=== PATIENT | female | born 1975 | race Caucasian/White ===

== ENCOUNTER 2022-02-17 16:36 | Outpatient (CLI) | payer MEDICAID | END 2022-02-17 16:37 | disposition critical access hospital (66) | LOC: EMS 16:36 | DX: R41.0 Disorientation, unspecified (principal); R50.9 Fever, unspecified; R11.2 Nausea with vomiting, unspecified; R09.02 Hypoxemia | CPT/HCPCS: A0425; A0427; A0999 ==

== ENCOUNTER 2022-02-17 16:45 | Inpatient (IN) | payer MEDICAID, OTHER ==
[2022-02-17] MEDS ORDERED: ONDANSETRON 4 MG/2 ML VIAL IVP STA (17:10)
[2022-02-17] MEDS ORDERED: ACETAMINOPHEN 500 MG TABLET PO STA (17:10)
--- NOTE | 2022-02-17 17:12 | ED Physician Documentation ---
History of Present Illness - Stated complaint Stated Complaint: LETHARGIC/VOMITING - Chief complaint Chief Complaint: Neuro - History obtained from History obtained from: Patient - Additonal information Additional information: 47-year-old woman with type 2 diabetes on insulin, carotid stenosis and CHF with EF of 43% presents with an illness. History is difficult because she is confused. She states she originally got sick 2 weeks ago and then got better but then got worse again yesterday with confusion, vomiting, fever and feeling hot, headache. I asked her if she had any sick contacts and she states her aunt was sick but cannot give me any details. Review of Systems Unable to obtain: Confused Constitutional: reports: Fever, Chills GI: reports: Nausea, Vomiting. denies: Abdominal Pain, Diarrhea PD PAST MEDICAL HISTORY - Past Medical History Cardiovascular: Hypertension Respiratory: None Endocrine/Autoimmune: Type 2 diabetes HEENT: Other Psych: None Musculoskeletal: None - Past Surgical History Past Surgical History: Yes - Present Medications Home Medications: Ambulatory Orders Medication Instructions Recorded Confirmed No Blood Product! 09/26/13 03/06/15 Amlodipine Besylate 10 mg PO DAILY 02/25/14 03/06/15 Atorvastatin [Lipitor] 10 mg PO DAILY 02/25/14 03/06/15 Insulin Glargine [Lantus Solostar] 50 unit SQ DAILY 02/25/14 03/06/15 Insulin Lispro [Humalog] 10 unit SQ AC 02/25/14 03/06/15 Metformin HCl 1,000 mg PO BID 02/25/14 03/06/15 Sertraline HCl [Zoloft] 50 mg PO DAILY 02/25/14 03/06/15 lisinopriL [Lisinopril] 40 mg PO DAILY 02/25/14 03/06/15 Penicillin Vk 500 mg PO Q8H 10 Days tablet 03/06/15 Saccharomyces Boulardii [Florastor] 500 mg PO BIDWM #40 capsule 03/06/15 - Allergies Allergies/Adverse Reactions: Allergies Allergy/AdvReac Type Severity Reaction Status Date / Time No Known Drug Allergies Allergy Verified 12/16/12 03:32 - Social History Does the pt smoke?: No Smoking Status: Never smoker Does the pt drink ETOH?: No Does the pt have substance abuse?: No - Immunizations Immunizations are current?: No Immunizations: TDAP >10years/unknown - POLST Patient has POLST: No PD ED PE NORMAL - Vitals Vital signs reviewed: Yes (Febrile, tachycardic, tachypneic, hypoxic) - General General: Other (She is slow to answer questions and seems to be struggling with word finding. She is alert and oriented x2.) - Neck Neck: Supple, no meningeal sign, No bony TTP - Cardiac Cardiac: RRR, No murmur - Respiratory Respiratory: No respiratory distress, Other (Rhonchi especially at the left base) - Abdomen Abdomen: Non tender - Back Back: No CVA TTP, No spinal TTP - Derm Derm: Normal color, Warm and dry, Other (Focal petechia on the right hand which she says is from the blood pressure cuff.) - Neuro Neuro: No motor deficit, No sensory deficit Eye Opening: Spontaneous Motor: Obeys Commands Verbal: Confused GCS Score: 14 Results - Vitals Vitals: Vital Signs - 24 hr 02/17/22 02/17/22 02/17/22 16:51 16:58 17:28 Temperature 39.6 C H Heart Rate 113 H 112 H 104 H Respiratory 32 H 26 H 17 Rate Blood Pressure 165/104 H 165/104 H 118/80 O2 Saturation 87 L 97 98 If not protocol 2 2 : Oxygen Flow, liters/minute 02/17/22 02/17/22 02/17/22 18:00 18:30 19:31 Temperature 36.9 C Heart Rate 95 84 77 Respiratory 20 12 18 Rate Blood Pressure 118/80 137/48 H 130/59 L O2 Saturation 98 97 95 If not protocol 2 2 : Oxygen Flow, liters/minute 02/17/22 19:52 Temperature Heart Rate 75 Respiratory 17 Rate Blood Pressure 130/59 L O2 Saturation 96 If not protocol 2 : Oxygen Flow, liters/minute Oxygen O2 Source Nasal cannula - EKG (time done) 1651 Rate: Rate (enter#) (114) Rhythm: Sinus tachycardia [place]: Normal Intervals: Normal ND QRS: LVH Ischemia: No: ST elevation c/w ischemia, ST depression - Labs Labs: Laboratory Tests 02/17/22 02/17/22 02/17/22 17:12 17:12 17:16 WBC RBC Hgb Hct MCV MCH MCHC RDW Plt Count MPV Neut # (Auto) Lymph # (Auto) [place] # (Auto) Eos # (Auto) Baso # (Auto) Absolute Nucleated RBC Nucleated RBC % VBG pH VBG pCO2 VBG pO2 VBG HCO3 VBG Total CO2 VBG O2 Saturation VBG Base Excess Sodium Potassium Chloride Carbon Dioxide Anion Gap BUN Creatinine Estimated GFR (MDRD) Glucose Lactic Acid Calcium Total Bilirubin AST ALT Alkaline Phosphatase Total Protein Albumin Globulin Albumin/Globulin Ratio Urine Color YELLOW Urine Clarity HAZY Urine pH 6.0 Ur Specific [place] 1.010 Urine Protein TRACE Urine Glucose (UA) >=1000 H Urine Ketones >=80 H Urine Occult Blood MODERATE H Urine Nitrite NEGATIVE Urine Bilirubin NEGATIVE Urine Urobilinogen 0.2 (NORMAL) Ur Leukocyte Esterase NEGATIVE Urine RBC 11-25 H Urine WBC 4-5 Ur Squamous Epith Cells MOD Squamous H Urine Bacteria Few Urine Yeast PRESENT Urine Culture Comments NOT INDICATED Urine HCG, Qual NEGATIVE Nasal Adenovirus (PCR) NOT DETECTED Nasal B. parapertussis DNA (PCR) NOT DETECTED Nasal Coronavir 229E PCR NOT DETECTED Nasal Coronavir HKU1 PCR NOT DETECTED Nasal Coronavir NL63 PCR NOT DETECTED Nasal Coronavir OC43 PCR NOT DETECTED Nasal Enterovir/Rhinovir PCR NOT DETECTED Nasal Influenza B PCR NOT DETECTED Nasal Influenza A PCR NOT DETECTED Nasal Parainfluen 1 PCR NOT DETECTED Nasal Parainfluen 2 PCR NOT DETECTED Nasal Parainfluen 3 PCR NOT DETECTED Nasal Parainfluen 4 PCR NOT DETECTED Nasal RSV (PCR) NOT DETECTED Nasal B.pertussis DNA PCR NOT DETECTED Nasal C.pneumoniae (PCR) NOT DETECTED Prosper Human Metapneumo PCR NOT DETECTED Nasal M.pneumoniae (PCR) NOT DETECTED Nasal SARS-CoV-2 (PCR) NOT DETECTED Serum Ketones 02/17/22 02/17/22 02/17/22 17:24 17:24 17:25 WBC 15.6 H RBC 5.39 Hgb 13.6 Hct 42.4 MCV 78.7 L MCH 25.2 L MCHC 32.1 RDW 13.1 Plt Count 246 MPV 10.3 Neut # (Auto) 13.4 H Lymph # (Auto) 0.8 L [place] # (Auto) 1.3 H Eos # (Auto) 0.0 Baso # (Auto) 0.0 Absolute Nucleated RBC 0.00 Nucleated RBC % 0.0 VBG pH VBG pCO2 VBG pO2 VBG HCO3 VBG Total CO2 VBG O2 Saturation VBG Base Excess Sodium 124 L Potassium 3.9 Chloride 89 L Carbon Dioxide 24 Anion Gap 11.0 BUN 18 Creatinine 1.0 Estimated GFR (MDRD) 60 L Glucose 442 H Lactic Acid 1.5 Calcium 9.8 Total Bilirubin 2.1 H AST 17 ALT 19 Alkaline Phosphatase 94 Total Protein 7.8 Albumin 3.6 Globulin 4.2 Albumin/Globulin Ratio 0.9 L Urine Color Urine Clarity Urine pH Ur Specific [place] Urine Protein Urine Glucose (UA) Urine Ketones Urine Occult Blood Urine Nitrite Urine Bilirubin Urine Urobilinogen Ur Leukocyte Esterase Urine RBC Urine WBC Ur Squamous Epith Cells Urine Bacteria Urine Yeast Urine Culture Comments Urine HCG, Qual Nasal Adenovirus (PCR) Nasal B. parapertussis DNA (PCR) Nasal Coronavir 229E PCR Nasal Coronavir HKU1 PCR Nasal Coronavir NL63 PCR Nasal Coronavir OC43 PCR Nasal Enterovir/Rhinovir PCR Nasal Influenza B PCR Nasal Influenza A PCR Nasal Parainfluen 1 PCR Nasal Parainfluen 2 PCR Nasal Parainfluen 3 PCR Nasal Parainfluen 4 PCR Nasal RSV (PCR) Nasal B.pertussis DNA PCR Nasal C.pneumoniae (PCR) Prosper Human Metapneumo PCR Nasal M.pneumoniae (PCR) Nasal SARS-CoV-2 (PCR) Serum Ketones SMALL H 02/17/22 17:25 WBC RBC Hgb Hct MCV MCH MCHC RDW Plt Count MPV Neut # (Auto) Lymph # (Auto) [place] # (Auto) Eos # (Auto) Baso # (Auto) Absolute Nucleated RBC Nucleated RBC % VBG pH 7.420 H VBG pCO2 43.0 VBG pO2 31.8 VBG HCO3 27.3 VBG Total CO2 28.6 VBG O2 Saturation 69.8 VBG Base Excess 2.4 H Sodium Potassium Chloride Carbon Dioxide Anion Gap BUN Creatinine Estimated GFR (MDRD) Glucose Lactic Acid Calcium Total Bilirubin AST ALT Alkaline Phosphatase Total Protein Albumin Globulin Albumin/Globulin Ratio Urine Color Urine Clarity Urine pH Ur Specific [place] Urine Protein Urine Glucose (UA) Urine Ketones Urine Occult Blood Urine Nitrite Urine Bilirubin Urine Urobilinogen Ur Leukocyte Esterase Urine RBC Urine WBC Ur Squamous Epith Cells Urine Bacteria Urine Yeast Urine Culture Comments Urine HCG, Qual Nasal Adenovirus (PCR) Nasal B. parapertussis DNA (PCR) Nasal Coronavir 229E PCR Nasal Coronavir HKU1 PCR Nasal Coronavir NL63 PCR Nasal Coronavir OC43 PCR Nasal Enterovir/Rhinovir PCR Nasal Influenza B PCR Nasal Influenza A PCR Nasal Parainfluen 1 PCR Nasal Parainfluen 2 PCR Nasal Parainfluen 3 PCR Nasal Parainfluen 4 PCR Nasal RSV (PCR) Nasal B.pertussis DNA PCR Nasal C.pneumoniae (PCR) Prosper Human Metapneumo PCR Nasal M.pneumoniae (PCR) Nasal SARS-CoV-2 (PCR) Serum Ketones - Rads (name of study) Chest x-ray and CT of the head without acute disease. Prior subarachnoid clip. Radiology: Final report received, EMP read indepedently PD Medical Decision Making - ED course ED course: 47-year-old woman with history of diabetes, low ejection fraction and vascular disease presents with lethargy, delirium, high fever and hypoxemia. She was administered IV fluids, insulin and labs were checked. These are notable for leukocytosis at 15, blood sugar 142 with hyponatremia that certainly could be pseudohyponatremia, no clearly infected urine, respiratory PCR negative and small ketones. CT of the head was without acute change and chest x-ray as well. Given her hypoxemia had a high pretest probability for pneumonia and this was followed by CT angiogram which was negative for same and also PE. At that point her vital signs look much better. She was taken off the oxygen and had pulse oximetry about 93% on room air. Her blood sugar remained very high though, in the mid 400s despite IV insulin and 2 L of fluid. Given her presentation vital signs I think it reasonable to place her in observation for sepsis rule out and management of her severe hyperglycemia. Call was placed to telehealth service and I Turned her care over to Dr. Flynn at 10 PM shift change pending telehealth return call. Departure - Departure Disposition: ED Place in Observation Clinical Impression: Hypoxemia, Delirium, Hyperglycemia Fever Qualifiers: Fever type: due to other condition Qualified Code(s): R50.81 - Fever presenting with conditions classified elsewhere Condition: Stable
[2022-02-17 17:32] LABS: BASOPHILS % (AUTO) 0.2 %; HCT - HEMATOCRIT 42.4 % (37.0-47.0); HGB - HEMOGLOBIN 13.6 g/dL (12.0-16.0); LYMPHOCYTES # (AUTO) 0.8 10^3/uL (1.5-3.5); LYMPHOCYTES % (AUTO) 4.9 %; MEAN CORPUSCULAR HEMOGLOBIN 25.2 pg (27.0-31.0); MEAN CORPUSCULAR HGB CONC 32.1 g/dL (32.0-36.0); MEAN CORPUSCULAR VOLUME 78.7 fL (81.0-99.0); MEAN PLATELET VOLUME 10.3 fL (7.9-10.8); MONOCYTES # (AUTO) 1.3 10^3/uL (0.0-1.0); NEUTROPHILS # (AUTO) 13.4 10^3/uL (1.5-6.6); NEUTROPHILS % (AUTO) 86.3 %; PLT - PLATELET COUNT 246 10^3/uL (130-450); RED BLOOD COUNT 5.39 10^6/uL (4.20-5.40); RED CELL DISTRIBUTION WIDTH 13.1 % (12.0-15.0); WHITE BLOOD COUNT 15.6 x10^3/uL (4.8-10.8)
[2022-02-17 17:34] LABS: VBG BASE EXCESS 2.4 mmol/L (-2 - +2); VBG HCO3 27.3 mmol/L (23-28); VBG OXYGEN SATURATION 69.8 % (60-80); VBG PH 7.42 (7.31-7.41); VBG PO2 31.8 mmHg (25-47); VBG TOTAL CO2 28.6 mmol/L (24-29)
[2022-02-17 17:36] LABS: KETONES, SERUM (ACETEST) SMALL (NEGATIVE)
[2022-02-17 17:39] LABS: BILIRUBIN,URINE NEGATIVE (NEGATIVE); GLUCOSE, URINE (UA) >=1000 mg/dL (NEGATIVE); KETONES,URINE (UA) >=80 mg/dL (NEGATIVE); LEUKOCYTE ESTERASE, URINE NEGATIVE (NEGATIVE); NITRITE,URINE NEGATIVE (NEGATIVE); OCCULT BLOOD,URINE MODERATE (NEGATIVE); PROTEIN,URINE TRACE mg/dL (NEGATIVE); UROBILINOGEN,URINE 0.2 (NORMAL) E.U./dL (NORMAL)
[2022-02-17 17:41] LABS: HCG UR QUAL NEGATIVE
[2022-02-17 17:43] LABS: ALBUMIN 3.6 g/dL (3.2-5.5); ALBUMIN/GLOBULIN RATIO 0.9 (1.0-2.2); ALKALINE PHOSPHATASE 94 IU/L (42-121); ALT ALANINE AMINOTRANSFERASE 19 IU/L (10-60); AST ASPARTATE AMINOTRANSFERASE 17 IU/L (10-42); BILIRUBIN,TOTAL 2.1 mg/dL (0.2-1.0); BUN - BLOOD UREA NITROGEN 18 mg/dL (6-20); CALCIUM 9.8 mg/dL (8.5-10.3); CARBON DIOXIDE - CO2 24 mmol/L (21-32); CHLORIDE 89 mmol/L (101-111); GFR - MDRD 60 (>89); GLUCOSE 442 mg/dL (70-100); POTASSIUM 3.9 mmol/L (3.5-5.0); SODIUM 124 mmol/L (135-145); TOTAL PROTEIN 7.8 g/dL (6.7-8.2)
[2022-02-17 17:50] LABS: CLARITY,URINE HAZY (CLEAR)
[2022-02-17 17:51] LABS: BACTERIA,URINE Few /HPF (None Seen); SQUAMOUS EPITHELIAL CELL,UR MOD Squamous (<= Few)
[2022-02-17] MEDS ORDERED: SODIUM CHLORIDE 0.9% 1,000 ML IV STA ×2 (17:51→20:54)
[2022-02-17 17:52] LABS: YEAST,URINE PRESENT
--- NOTE | 2022-02-17 18:09 | CT Report ---
PROCEDURE: HEAD WO INDICATIONS: headache TECHNIQUE: Noncontrast 4.5 mm thick angled axial sections acquired from the foramen magnum to the vertex. For r adiation dose reduction, the following was used: automated exposure control, adjustment of mA and/or kV according to patient size. COMPARISON: 09/26/2013 FINDINGS: Image quality: Motion artifact is noted. There is artifact associated with the metallic hardware. CSF spaces: Basal cisterns are patent. No extra-axial fluid collections. Ventricles are normal in size and shape. 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 No midline shift. No intracranial masses or hemorrhage. [place]-white matter interface is normal. Skull and face: Calvarium and visualized facial bones are intact, without suspicious lesions. Hyper ostosis frontalis is incidentally noted, which is not frankly abnormal for a female patient of this a ge. Sinuses: Visualized sinuses and mastoids are clear. IMPRESSION: No recurrent subarachnoid hemorrhage is seen. A cause of headache cannot be seen on these images. 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 Reviewed by: Gal Nguyen MD on 02/17/2022 5:08 PM [place] Approved by: Gal Nguyen MD on 02/17/2022 5:08 PM [place] Station ID: [id number]
[2022-02-17] MEDS ORDERED: INSULIN REGULAR HUMAN 100 UNIT/1 ML 10 ML MDV IVP STA ×2 (18:27→21:36)
--- NOTE | 2022-02-17 18:36 | XRAY Report ---
PROCEDURE: Chest 1 View X-Ray INDICATIONS: cough TECHNIQUE: One view of the chest was acquired. COMPARISON: Chest radiographs 12/16/2012. FINDINGS: Surgical changes and devices: None. Lungs and pleura: No pleural effusions or pneumothorax. Lungs are clear. Mediastinum: Cardiac silhouette is at the upper limits of normal in size. Bones and chest wall: No suspicious bony lesions. Overlying soft tissues appear unremarkable. IMPRESSION: No acute cardiopulmonary abnormality. Reviewed by: Isaiah Mejía MD on 02/17/2022 6:35 PM PST Approved by: Isaiah Mejía MD on 02/17/2022 6:35 PM PST Station ID: [id number]
[2022-02-17 18:46] LABS: B. PARAPERTUSSIS- RESP PCR PAN NOT DETECTED; B. PERTUSSIS- RESP PCR PANEL NOT DETECTED; C. PNEUMONIAE- RESP PCR PANEL NOT DETECTED; CORONAVIRUS 229E-RESP PCR NOT DETECTED; CORONAVIRUS HKU1-RESP PCR NOT DETECTED; CORONAVIRUS NL63-RESP PCR NOT DETECTED; CORONAVIRUS OC43-RESP PCR NOT DETECTED; HUMAN METAPNEUMOVIRUS NOT DETECTED; INFLUENZA A- RESP PCR PANEL NOT DETECTED; INFLUENZA B - RESP PCR PANEL NOT DETECTED; M. PNEUMONIAE- RESP PCR PANEL NOT DETECTED; PARAINFLUENZA VIRUS 1 NOT DETECTED; PARAINFLUENZA VIRUS 2 NOT DETECTED; PARAINFLUENZA VIRUS 3 NOT DETECTED; PARAINFLUENZA VIRUS 4 NOT DETECTED; RHINOVIRUS/ENTEROVIRUS NOT DETECTED; RSV- RESP PCR PANEL NOT DETECTED; SARS-CoV-2 -RESP PCR PANEL NOT DETECTED
[2022-02-17] MEDS ORDERED: iohexoL-300 100 ML VIAL ONE (18:52)
--- NOTE | 2022-02-17 20:35 | CT Report ---
PROCEDURE: ANGIO CHEST W/WO INDICATIONS: fever, tachy, suspect occult pna CONTRAST: 80mL Omni 300 TECHNIQUE: After the administration of intravenous contrast, 2 mm axial images were acquired from the pulmonary apices to the posterior costophrenic angles during the arterial phase. In addition, 1 mm lung kernel and 5 mm soft tissue kernel reconstructions were performed. 3-dimensional coronal oblique maximum int ensity projection (MIP) reformats, 8 mm axial MIP, and 5 mm coronal and sagittal MPR reformats were t hen performed through the thorax. For radiation dose reduction, the following was used: automated exp osure control, adjustment of mA and/or kV according to patient size. COMPARISON: Chest radiograph same day FINDINGS: Pulmonary arteries: Pulmonary arteries are normal in size, and demonstrate no intraluminal filling d efects to suggest central pulmonary embolism. Lungs and pleura: No consolidation or substantial groundglass opacity. No pleural effusions or pneum othorax. Mediastinum: No pericardial effusion. No mediastinal or hilar adenopathy. Thoracic aorta is normal in caliber and enhancement. 3.5 cm nodule left lobe of the thyroid gland Bones and chest wall: Multilevel degenerative change of the visualized spine. Abdomen: negative IMPRESSION: 1. No pulmonary embolism demonstrated. 2. No consolidation demonstrated. 3. Approximately 3.5 cm nodule(s) in the left lobe of the thyroid gland. Thyroid ultrasound is recomm ended for further evaluation per ACR guidelines. Reviewed by: Isaiah Mejía MD on 02/17/2022 8:34 PM PST Approved by: Isaiah Mejía MD on 02/17/2022 8:34 PM PST Station ID: [id number]
[2022-02-17] MEDS ORDERED: cefTRIAXone 1 GM in SODIUM CHLORIDE 0.9% MINIBAG 100 ML IV STA (20:54)
[2022-02-17] MEDS ORDERED: iohexoL-300 100 ML VIAL IVP ONE (21:10)
[2022-02-17] MEDS ORDERED: cefTRIAXone 1 GM VIAL ONE (21:35)
--- NOTE | 2022-02-17 22:16 | HISTORY & PHYSICAL EXAMINATION ---
Chief Complaint - Chief Complaint Chief Complaint: Confusion History of Present Illness - Admitted From Admitted From:: ER - History Obtained From Exam Limitations: Video not working well. - History of Present Illness HPI Comment/Other: History difficult to obtain from pt d/t pt's confusion. History obtained from staff, chart. 47 yo F with PMH of DM type 2 on Insulin, Carotid Stenosis, HTN, HFrEF with EF 43% with c/o 2 week h/o URI symptoms and 1 day h/o AMS, N/V. 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 Then, Pt began to feel ill on Jan with Cough, chest congestion, CP with cough, Subjective F/C, weakness, myalgias improved with Ibuprofen. No increased SOB. Relatives got sick after her. She was not eating well. She was using her Insulin. Then, yesterday, she began to have N/V with multiple emeses, non-bloody, No abdo pain, No dysuria, no BM change. In the ER, SpO2 80s on RA initially, now 90s. T 39.6C. Confusion improved with IVF. WBC 15.6, CXR: NAD, BC pending Pt was given Regular Insulin 10 U, Rocephin in the ER. History - Past Medical History Cardiovascular: reports: Hypertension Respiratory: reports: None Endocrine/Autoimmune: reports: Type 2 diabetes HEENT: reports: Other Psych: reports: None Musculoskeletal: reports: None - POLST Patient has POLST: No Meds/Allgy - Home Medications Home Medications: Ambulatory Orders Medication Instructions Recorded Confirmed No Blood Product! 09/26/13 03/06/15 Amlodipine Besylate 10 mg PO DAILY 02/25/14 03/06/15 Atorvastatin [Lipitor] 10 mg PO DAILY 02/25/14 03/06/15 Insulin Glargine [Lantus Solostar] 50 unit SQ DAILY 02/25/14 03/06/15 Insulin Lispro [Humalog] 10 unit SQ AC 02/25/14 03/06/15 Metformin HCl 1,000 mg PO BID 02/25/14 03/06/15 Sertraline HCl [Zoloft] 50 mg PO DAILY 02/25/14 03/06/15 lisinopriL [Lisinopril] 40 mg PO DAILY 02/25/14 03/06/15 Penicillin Vk 500 mg PO Q8H 10 Days tablet 03/06/15 Saccharomyces Boulardii [Florastor] 500 mg PO BIDWM #40 capsule 03/06/15 - Allergies Allergies/Adverse Reactions: Allergies Allergy/AdvReac Type Severity Reaction Status Date / Time No Known Drug Allergies Allergy Verified 12/16/12 03:32 Review of Systems - All Other Systems All Other Systems: reports: Reviewed and negative Exam - Vital Signs Reviewed Vital Signs: Yes Vital Signs: Vital Signs x48h Temp Pulse Resp BP Pulse Ox O2 Flow Rate 02/17/22 19:52 75 17 130/59 L 96 2 02/17/22 19:31 36.9 C 77 18 130/59 L 95 02/17/22 18:30 84 12 137/48 H 97 2 02/17/22 18:00 95 20 118/80 98 2 02/17/22 17:28 104 H 17 118/80 98 2 02/17/22 16:58 112 H 26 H 165/104 H 97 2 02/17/22 16:51 39.6 C H 113 H 32 H 165/104 H 87 L - Physical Exam General Appearance: positive: No acute distress, Alert Eyes Bilateral: positive: Normal inspection, PERRL, EOMI, No scleral icterus ENT: positive: Dry mucous membranes Respiratory: positive: No respiratory distress, Breath sounds nml Cardiovascular: positive: Regular rate & rhythm, No murmur Abdomen: positive: Non-tender Skin: positive: Dry Extremities: positive: Non-tender, Full ROM Neurologic/Psychiatric: positive: Oriented x3, CN's nml (2-12), Motor nml, Sensation nml, Mood/affect nml Conclusion/Plan - Problem List (1) Fever Conclusion/Plan: AMS -CT Head: NAD -improving with IVF -most likely Metabolic Encephalopathy -monitor URI Fever -Viral swabs neg, WBC 15.3, CXR: NAD -supportive care -pt given Rocephin in the ER; will hold on A/Bs for now. N/V Decreased PO intake Hyponatremia/Pseudohyponatremia d/t Hyperglycemia -improved with anti-emetics -continue IVF, anti-emetics Hyperglycemia DM type 2 on Insulin -most likely d/t recent URI -continue accuchecks, SS Insulin, Hypoglycemic protocol -continue home medications: Lantus -hold home medications: Metformin Carotid Stenosis HTN HFrEF with EF 43% -cautious with IVF -continue home medications: Lisinopril, Amlodipine, statin Anxiety -continue home medications: Zoloft Qualifiers: Fever type: due to other condition Qualified Code(s): R50.81 - Fever presenting with conditions classified elsewhere - Lab Results Fish Bones: 02/17/22 17:24 02/17/22 17:25
[2022-02-17] MEDS ORDERED: ONDANSETRON ODT 4 MG TABLET TL PRN (23:39)
[2022-02-17] MEDS ORDERED: ACETAMINOPHEN 325 MG TABLET PO PRN (23:39)
[2022-02-17] MEDS ORDERED: SODIUM CHLORIDE 0.9% 1,000 ML IV SCH (23:45)
[2022-02-18] MEDS: SODIUM CHLORIDE FLUSH 0.9% 10 ML SYRINGE IVP SCH ×3 (02:25→17:42)
[2022-02-18] MEDS: HEPARIN 5,000 UNIT/ML VIAL SUBQ SCH ×2 (02:25→09:07)
[2022-02-18] MEDS ORDERED: SODIUM CHLORIDE 0.9% 1,000 ML IV SCH (03:15)
[2022-02-18] MEDS ORDERED: INSULIN LISPRO 300 UNIT/3 ML PEN SUBQ SCH (08:00)
[2022-02-18 08:44] LABS: BASOPHILS # (AUTO) 0.1 10^3/uL (0.0-0.1); BASOPHILS % (AUTO) 0.3 %; EOSINOPHILS % (AUTO) 0.1 %; HCT - HEMATOCRIT 37.8 % (37.0-47.0); HGB - HEMOGLOBIN 12.1 g/dL (12.0-16.0); LYMPHOCYTES # (AUTO) 0.5 10^3/uL (1.5-3.5); LYMPHOCYTES % (AUTO) 2.6 %; MEAN CORPUSCULAR HEMOGLOBIN 25.4 pg (27.0-31.0); MEAN CORPUSCULAR VOLUME 79.4 fL (81.0-99.0); MEAN PLATELET VOLUME 10.9 fL (7.9-10.8); MONOCYTES # (AUTO) 0.7 10^3/uL (0.0-1.0); MONOCYTES % (AUTO) 3.5 %; NEUTROPHILS # (AUTO) 17.8 10^3/uL (1.5-6.6); NEUTROPHILS % (AUTO) 93.2 %; PLT - PLATELET COUNT 215 10^3/uL (130-450); RED BLOOD COUNT 4.76 10^6/uL (4.20-5.40); RED CELL DISTRIBUTION WIDTH 13.2 % (12.0-15.0); WHITE BLOOD COUNT 19.1 x10^3/uL (4.8-10.8)
[2022-02-18] MEDS ORDERED: lisinopriL 20 MG TABLET PO SCH ×2 (09:00)
[2022-02-18] MEDS ORDERED: amLODIPine 5 MG TABLET PO SCH ×2 (09:00)
[2022-02-18] MEDS ORDERED: ATORVASTATIN 10 MG TABLET PO SCH (09:00)
[2022-02-18] MEDS ORDERED: INSULIN GLARGINE-YFGN 300 UNIT/3 ML PEN SUBQ SCH (09:00)
[2022-02-18 09:04] LABS: CALCIUM 9.3 mg/dL (8.5-10.3); POTASSIUM 3.5 mmol/L (3.5-5.0)
[2022-02-18] MEDS: SERTRALINE 50 MG TABLET PO SCH (09:07)
[2022-02-18] MEDS: cefTRIAXone 2 GM in SODIUM CHLORIDE 0.9% MINIBAG 100 ML IV SCH (09:13)
[2022-02-18] MEDS ORDERED: SODIUM CHLORIDE FLUSH 0.9% 10 ML SYRINGE IVP PRN (09:18)
--- NOTE | 2022-02-18 09:29 | PROVIDER PROGRESS NOTE ---
Subjective - Subjective Pt reports feeling: Worse (She is vomiting, she is groggy and gives answers slowly, she just spiked a fever) Objective - Vital Signs/Intake & Output Vital Signs: Vital Signs Temp Pulse Resp BP Pulse Ox O2 Flow Rate 02/18/22 07:56 36.8 C 87 20 137/57 H 99 2 Intake & Output: Intake & Output 02/15/22 02/16/22 02/17/22 02/18/22 23:59 23:59 23:59 23:59 Intake Total 1100 1450 Output Total 750 Balance 1100 700 - Objective General Appearance: positive: Severe distress (Groggy, just spiked a fever, is actively vomit), Other (Morbidly obese middle-aged white female) Eyes Bilateral: positive: Normal inspection ENT: positive: Dry mucous membranes, Other (Cheeks are flushed) Neck: positive: Nml inspection (Cannot evaluate JVP due to morbid obesity) Respiratory: positive: No respiratory distress, Breath sounds nml Cardiovascular: positive: Regular rate & rhythm, No murmur, Tachycardia Abdomen: positive: Non-tender, Nml bowel sounds, Other (Obese with a pannus) Skin: positive: Color nml, Diaphoresis Extremities: positive: Non-tender, No pedal edema Neurologic/Psychiatric: positive: Oriented x3, Other (Lethargic) - Lab Results Fish Bones: 02/20/22 05:19 02/20/22 05:19 Other Labs: Lab Results x24hrs 02/18/22 02/18/22 02/18/22 Range/Units 08:38 08:34 08:34 WBC (4.8-10.8) x10^3/uL RBC (4.20-5.40) 10^6/uL Hgb (12.0-16.0) g/dL Hct (37.0-47.0) % MCV (81.0-99.0) fL MCH (27.0-31.0) pg MCHC (32.0-36.0) g/dL RDW (12.0-15.0) % Plt Count (130-450) 10^3/uL MPV (7.9-10.8) fL Neut # (Auto) (1.5-6.6) 10^3/uL Lymph # (Auto) (1.5-3.5) 10^3/uL Chester # (Auto) (0.0-1.0) 10^3/uL Eos # (Auto) (0.0-0.7) 10^3/uL Baso # (Auto) (0.0-0.1) 10^3/uL Absolute Nucleated RBC x10^3/uL Nucleated RBC % /100WBC VBG pH (7.31-7.41) VBG pCO2 (41-51) mmHg VBG pO2 (25-47) mmHg VBG HCO3 (23-28) mmol/L VBG Total CO2 (24-29) mmol/L VBG O2 Saturation (60-80) % VBG Base Excess (-2 - +2) mmol/L Sodium 128 L (135-145) mmol/L Potassium 3.5 (3.5-5.0) mmol/L Chloride 95 L (101-111) mmol/L Carbon Dioxide 24 (21-32) mmol/L Anion Gap 9.0 (6-13) BUN 23 H (6-20) mg/dL Creatinine 1.0 (0.4-1.0) mg/dL Estimated GFR (MDRD) 60 L (>89) Glucose 519 H* (70-100) mg/dL Lactic Acid 1.5 (0.5-2.2) mmol/L Calcium 9.3 (8.5-10.3) mg/dL Total Bilirubin (0.2-1.0) mg/dL AST (10-42) IU/L ALT (10-60) IU/L Alkaline Phosphatase (42-121) IU/L Total Protein (6.7-8.2) g/dL Albumin (3.2-5.5) g/dL Globulin (2.1-4.2) g/dL Albumin/Globulin Ratio (1.0-2.2) Urine Color Urine Clarity (CLEAR) Urine pH (5.0-7.5) PH Ur Specific Orgas (1.002-1.030) Urine Protein (NEGATIVE) mg/dL Urine Glucose (UA) (NEGATIVE) mg/dL Urine Ketones (NEGATIVE) mg/dL Urine Occult Blood (NEGATIVE) Urine Nitrite (NEGATIVE) Urine Bilirubin (NEGATIVE) Urine Urobilinogen (NORMAL) E.U./dL Ur Leukocyte Esterase (NEGATIVE) Urine RBC (0-5) /HPF Urine WBC (0-5) /HPF Ur Squamous Epith Cells (<= Few) Urine Bacteria (None Seen) /HPF Urine Yeast Urine Culture Comments Urine HCG, Qual Nasal Adenovirus (PCR) Nasal B. parapertussis DNA (PCR) Nasal Coronavir 229E PCR Nasal Coronavir HKU1 PCR Nasal Coronavir NL63 PCR Nasal Coronavir OC43 PCR Nasal Enterovir/Rhinovir PCR Nasal Influenza B PCR Nasal Influenza A PCR Nasal Parainfluen 1 PCR Nasal Parainfluen 2 PCR Nasal Parainfluen 3 PCR Nasal Parainfluen 4 PCR Nasal RSV (PCR) Nasal B.pertussis DNA PCR Nasal C.pneumoniae (PCR) Prosper Human Metapneumo PCR Nasal M.pneumoniae (PCR) Nasal SARS-CoV-2 (PCR) Serum Ketones SMALL H (NEGATIVE) 02/18/22 02/17/22 02/17/22 Range/Units 08:34 17:25 17:25 WBC 19.1 H (4.8-10.8) x10^3/uL RBC 4.76 (4.20-5.40) 10^6/uL Hgb 12.1 (12.0-16.0) g/dL Hct 37.8 (37.0-47.0) % MCV 79.4 L (81.0-99.0) fL MCH 25.4 L (27.0-31.0) pg MCHC 32.0 (32.0-36.0) g/dL RDW 13.2 (12.0-15.0) % Plt Count 215 (130-450) 10^3/uL MPV 10.9 H (7.9-10.8) fL Neut # (Auto) 17.8 H (1.5-6.6) 10^3/uL Lymph # (Auto) 0.5 L (1.5-3.5) 10^3/uL Chester # (Auto) 0.7 (0.0-1.0) 10^3/uL Eos # (Auto) 0.0 (0.0-0.7) 10^3/uL Baso # (Auto) 0.1 (0.0-0.1) 10^3/uL Absolute Nucleated RBC 0.00 x10^3/uL Nucleated RBC % 0.0 /100WBC VBG pH 7.420 H (7.31-7.41) VBG pCO2 43.0 (41-51) mmHg VBG pO2 31.8 (25-47) mmHg VBG HCO3 27.3 (23-28) mmol/L VBG Total CO2 28.6 (24-29) mmol/L VBG O2 Saturation 69.8 (60-80) % VBG Base Excess 2.4 H (-2 - +2) mmol/L Sodium 124 L (135-145) mmol/L Potassium 3.9 (3.5-5.0) mmol/L Chloride 89 L (101-111) mmol/L Carbon Dioxide 24 (21-32) mmol/L Anion Gap 11.0 (6-13) BUN 18 (6-20) mg/dL Creatinine 1.0 (0.4-1.0) mg/dL Estimated GFR (MDRD) 60 L (>89) Glucose 442 H (70-100) mg/dL Lactic Acid (0.5-2.2) mmol/L Calcium 9.8 (8.5-10.3) mg/dL Total Bilirubin 2.1 H (0.2-1.0) mg/dL AST 17 (10-42) IU/L ALT 19 (10-60) IU/L Alkaline Phosphatase 94 (42-121) IU/L Total Protein 7.8 (6.7-8.2) g/dL Albumin 3.6 (3.2-5.5) g/dL Globulin 4.2 (2.1-4.2) g/dL Albumin/Globulin Ratio 0.9 L (1.0-2.2) Urine Color Urine Clarity (CLEAR) Urine pH (5.0-7.5) PH Ur Specific Orgas (1.002-1.030) Urine Protein (NEGATIVE) mg/dL Urine Glucose (UA) (NEGATIVE) mg/dL Urine Ketones (NEGATIVE) mg/dL Urine Occult Blood (NEGATIVE) Urine Nitrite (NEGATIVE) Urine Bilirubin (NEGATIVE) Urine Urobilinogen (NORMAL) E.U./dL Ur Leukocyte Esterase (NEGATIVE) Urine RBC (0-5) /HPF Urine WBC (0-5) /HPF Ur Squamous Epith Cells (<= Few) Urine Bacteria (None Seen) /HPF Urine Yeast Urine Culture Comments Urine HCG, Qual Nasal Adenovirus (PCR) Nasal B. parapertussis DNA (PCR) Nasal Coronavir 229E PCR Nasal Coronavir HKU1 PCR Nasal Coronavir NL63 PCR Nasal Coronavir OC43 PCR Nasal Enterovir/Rhinovir PCR Nasal Influenza B PCR Nasal Influenza A PCR Nasal Parainfluen 1 PCR Nasal Parainfluen 2 PCR Nasal Parainfluen 3 PCR Nasal Parainfluen 4 PCR Nasal RSV (PCR) Nasal B.pertussis DNA PCR Nasal C.pneumoniae (PCR) Prosper Human Metapneumo PCR Nasal M.pneumoniae (PCR) Nasal SARS-CoV-2 (PCR) Serum Ketones SMALL H (NEGATIVE) 02/17/22 02/17/22 02/17/22 Range/Units 17:24 17:24 17:16 WBC 15.6 H (4.8-10.8) x10^3/uL RBC 5.39 (4.20-5.40) 10^6/uL Hgb 13.6 (12.0-16.0) g/dL Hct 42.4 (37.0-47.0) % MCV 78.7 L (81.0-99.0) fL MCH 25.2 L (27.0-31.0) pg MCHC 32.1 (32.0-36.0) g/dL RDW 13.1 (12.0-15.0) % Plt Count 246 (130-450) 10^3/uL MPV 10.3 (7.9-10.8) fL Neut # (Auto) 13.4 H (1.5-6.6) 10^3/uL Lymph # (Auto) 0.8 L (1.5-3.5) 10^3/uL Chester # (Auto) 1.3 H (0.0-1.0) 10^3/uL Eos # (Auto) 0.0 (0.0-0.7) 10^3/uL Baso # (Auto) 0.0 (0.0-0.1) 10^3/uL Absolute Nucleated RBC 0.00 x10^3/uL Nucleated RBC % 0.0 /100WBC VBG pH (7.31-7.41) VBG pCO2 (41-51) mmHg VBG pO2 (25-47) mmHg VBG HCO3 (23-28) mmol/L VBG Total CO2 (24-29) mmol/L VBG O2 Saturation (60-80) % VBG Base Excess (-2 - +2) mmol/L Sodium (135-145) mmol/L Potassium (3.5-5.0) mmol/L Chloride (101-111) mmol/L Carbon Dioxide (21-32) mmol/L Anion Gap (6-13) BUN (6-20) mg/dL Creatinine (0.4-1.0) mg/dL Estimated GFR (MDRD) (>89) Glucose (70-100) mg/dL Lactic Acid 1.5 (0.5-2.2) mmol/L Calcium (8.5-10.3) mg/dL Total Bilirubin (0.2-1.0) mg/dL AST (10-42) IU/L ALT (10-60) IU/L Alkaline Phosphatase (42-121) IU/L Total Protein (6.7-8.2) g/dL Albumin (3.2-5.5) g/dL Globulin (2.1-4.2) g/dL Albumin/Globulin Ratio (1.0-2.2) Urine Color Urine Clarity (CLEAR) Urine pH (5.0-7.5) PH Ur Specific Orgas (1.002-1.030) Urine Protein (NEGATIVE) mg/dL Urine Glucose (UA) (NEGATIVE) mg/dL Urine Ketones (NEGATIVE) mg/dL Urine Occult Blood (NEGATIVE) Urine Nitrite (NEGATIVE) Urine Bilirubin (NEGATIVE) Urine Urobilinogen (NORMAL) E.U./dL Ur Leukocyte Esterase (NEGATIVE) Urine RBC (0-5) /HPF Urine WBC (0-5) /HPF Ur Squamous Epith Cells (<= Few) Urine Bacteria (None Seen) /HPF Urine Yeast Urine Culture Comments Urine HCG, Qual Nasal Adenovirus (PCR) NOT DETECTED Nasal B. parapertussis DNA (PCR) NOT DETECTED Nasal Coronavir 229E PCR NOT DETECTED Nasal Coronavir HKU1 PCR NOT DETECTED Nasal Coronavir NL63 PCR NOT DETECTED Nasal Coronavir OC43 PCR NOT DETECTED Nasal Enterovir/Rhinovir PCR NOT DETECTED Nasal Influenza B PCR NOT DETECTED Nasal Influenza A PCR NOT DETECTED Nasal Parainfluen 1 PCR NOT DETECTED Nasal Parainfluen 2 PCR NOT DETECTED Nasal Parainfluen 3 PCR NOT DETECTED Nasal Parainfluen 4 PCR NOT DETECTED Nasal RSV (PCR) NOT DETECTED Nasal B.pertussis DNA PCR NOT DETECTED Nasal C.pneumoniae (PCR) NOT DETECTED Prosper Human Metapneumo PCR NOT DETECTED Nasal M.pneumoniae (PCR) NOT DETECTED Nasal SARS-CoV-2 (PCR) NOT DETECTED Serum Ketones (NEGATIVE) 02/17/22 02/17/22 Range/Units 17:12 17:12 WBC (4.8-10.8) x10^3/uL RBC (4.20-5.40) 10^6/uL Hgb (12.0-16.0) g/dL Hct (37.0-47.0) % MCV (81.0-99.0) fL MCH (27.0-31.0) pg MCHC (32.0-36.0) g/dL RDW (12.0-15.0) % Plt Count (130-450) 10^3/uL MPV (7.9-10.8) fL Neut # (Auto) (1.5-6.6) 10^3/uL Lymph # (Auto) (1.5-3.5) 10^3/uL Chester # (Auto) (0.0-1.0) 10^3/uL Eos # (Auto) (0.0-0.7) 10^3/uL Baso # (Auto) (0.0-0.1) 10^3/uL Absolute Nucleated RBC x10^3/uL Nucleated RBC % /100WBC VBG pH (7.31-7.41) VBG pCO2 (41-51) mmHg VBG pO2 (25-47) mmHg VBG HCO3 (23-28) mmol/L VBG Total CO2 (24-29) mmol/L VBG O2 Saturation (60-80) % VBG Base Excess (-2 - +2) mmol/L Sodium (135-145) mmol/L Potassium (3.5-5.0) mmol/L Chloride (101-111) mmol/L Carbon Dioxide (21-32) mmol/L Anion Gap (6-13) BUN (6-20) mg/dL Creatinine (0.4-1.0) mg/dL Estimated GFR (MDRD) (>89) Glucose (70-100) mg/dL Lactic Acid (0.5-2.2) mmol/L Calcium (8.5-10.3) mg/dL Total Bilirubin (0.2-1.0) mg/dL AST (10-42) IU/L ALT (10-60) IU/L Alkaline Phosphatase (42-121) IU/L Total Protein (6.7-8.2) g/dL Albumin (3.2-5.5) g/dL Globulin (2.1-4.2) g/dL Albumin/Globulin Ratio (1.0-2.2) Urine Color YELLOW Urine Clarity HAZY (CLEAR) Urine pH 6.0 (5.0-7.5) PH Ur Specific Orgas 1.010 (1.002-1.030) Urine Protein TRACE (NEGATIVE) mg/dL Urine Glucose (UA) >=1000 H (NEGATIVE) mg/dL Urine Ketones >=80 H (NEGATIVE) mg/dL Urine Occult Blood MODERATE H (NEGATIVE) Urine Nitrite NEGATIVE (NEGATIVE) Urine Bilirubin NEGATIVE (NEGATIVE) Urine Urobilinogen 0.2 (NORMAL) (NORMAL) E.U./dL Ur Leukocyte Esterase NEGATIVE (NEGATIVE) Urine RBC 11-25 H (0-5) /HPF Urine WBC 4-5 (0-5) /HPF Ur Squamous Epith Cells MOD Squamous H (<= Few) Urine Bacteria Few (None Seen) /HPF Urine Yeast PRESENT Urine Culture Comments NOT INDICATED Urine HCG, Qual NEGATIVE Nasal Adenovirus (PCR) Nasal B. parapertussis DNA (PCR) Nasal Coronavir 229E PCR Nasal Coronavir HKU1 PCR Nasal Coronavir NL63 PCR Nasal Coronavir OC43 PCR Nasal Enterovir/Rhinovir PCR Nasal Influenza B PCR Nasal Influenza A PCR Nasal Parainfluen 1 PCR Nasal Parainfluen 2 PCR Nasal Parainfluen 3 PCR Nasal Parainfluen 4 PCR Nasal RSV (PCR) Nasal B.pertussis DNA PCR Nasal C.pneumoniae (PCR) Prosper Human Metapneumo PCR Nasal M.pneumoniae (PCR) Nasal SARS-CoV-2 (PCR) Serum Ketones (NEGATIVE) - Diagnostic Imaging Diagnostic Imaging Results: positive: Final report reviewed Assessment/Plan - Problem List (1) DKA, type 2 Impression: She has had diabetes for 10 years, unknown how long insulin dependent she is. The patient reports having A1c done about a month ago and it was about 8. Possibly her viral syndrome of cough, fever and nausea vomiting threw her into DKA. Given the bacteremia, possibly the source of the Klebsiella bacteremia threw her into the DKA Plan: Admit to inpatient status Transfer to the ICU and started DKA protocol with insulin drip, frequent glucose and serum ketone monitoring Will aggressively search for an underlying infection, given this fever and bacteremia (2) Bacteremia due to Klebsiella pneumoniae Impression: She is on empiric ceftriaxone that was started for what the telemedicine doctor thought was an FUO. Chest x-ray did not have any infiltrates and she even had a CTA. Urinalysis was not a clean-catch, had many squamous cells therefore this type of bacteria may be from a UTI Plan: Will continue with empiric IV antibiotics, continue ceftriaxone for now Await blood culture results further sensitivities Will redraw blood cultures if she has a fever spike and in a few days to assure her blood cultures have turned negative We will repeat her urinalysis with culture if abnormal. (3) Nausea and vomiting Impression: She had this over the last 2 days along with a cough therefore may be an overall viral picture however the nausea and vomiting is very consistent with having DKA. She was able to tolerate clear liquids this morning but as a fever redeveloped her nausea and vomiting worsened Plan: Will de-escalate from clear liquids down to n.p.o. except ice chips Zofran has already been ordered Will add Compazine as needed to alternate antiemetics Treat the underlying DKA (4) Atypical chest pain Impression: Once she was moved to the ICU and started on DKA protocol, her nausea and vomiting came back. With hydration her cough became wetter. Then in the early afternoon she told her RN about right-sided chest pain radiating to the right lateral rib cage and to the back. Sublingual nitroglycerin was tried, it had minimal effect, the discomfort decreased on its own over an hour. Plan: Because the location of chest pain sounding not anginal and a wetter cough, chest x-ray will be repeated Because she has a history of CAD, troponins are being cycled, to assure no FL. (5) Hyponatremia Impression: This is likely pseudohyponatremia from the severely elevated glucose. Plan: NS at an aggressive fluid replacement rate will be ordered. Follow BMP every 2h (6) Metabolic encephalopathy Impression: This has resolved. She appears fatigued but she answers completely appropriately. The aunt is at her bedside and says she always gets confused when she has a fever or is sick overall Plan: Continue to treat the underlying cause of her fevers and infection (7) Chronic systolic heart failure Impression: The aunt confirms and the ER was aware that the patient has an LVEF of 43%. This was from a recent work-up done several months ago in [place]. We have no echoes here. Plan: Follow I's and O's carefully and watch for desaturation, while she is getting a ggressive IV fluids to treat her DKA. Continue with her other cardiac medications like SANDRA inhibitor and carvedilol (8) CAD (coronary artery disease) Impression: As per history provided to me by the aunt at bedside today. She has a 70% coronary stenosis, but the aunt does not know in which coronary artery, and it was not stented Plan: Continue with her antiplatelet and statin medications (9) PVD (peripheral vascular disease) Impression: Carotid disease is present and it is significant at about 70% on the R. It was not stented for fear of causing downstream embolization. Plan: Continue with her antiplatelet and cholesterol medication (10) History of spontaneous intraventricular hemorrhage due to cerebral aneurysm Impression: This happened 10 years ago and she was treated with coil, it is visible on imaging. The aunt gave me details, at bedside today. After this event it left her with fear of crowds. She has now gotten over that CRITICAL CARE TIME SPENT: 100 min (Evaluating patient, ordering transfer to ICU, ordering DKA protocol, reevaluating patient after moved into ICU, reviewing labs, ordering work-up for bacteremia, updating the aunt at the bedside).
[2022-02-18 09:54] LABS: VBG BASE EXCESS -1.4 mmol/L (-2 - +2); VBG HCO3 23.8 mmol/L (23-28); VBG OXYGEN SATURATION 91.6 % (60-80); VBG PCO2 41.6 mmHg (41-51); VBG PH 7.375 (7.31-7.41); VBG PO2 57.9 mmHg (25-47); VBG TOTAL CO2 25.1 mmol/L (24-29)
[2022-02-18] MEDS: SODIUM CHLORIDE 0.9% 1,000 ML IV SCH ×4 (10:00→20:09)
[2022-02-18 10:10] LABS: BUN - BLOOD UREA NITROGEN 22 mg/dL (6-20); CALCIUM 9.1 mg/dL (8.5-10.3); CARBON DIOXIDE - CO2 24 mmol/L (21-32); CHLORIDE 95 mmol/L (101-111); GFR - MDRD 60 (>89); GLUCOSE 520 mg/dL (70-100); MAGNESIUM 1.5 mg/dL (1.7-2.8); POTASSIUM 3.7 mmol/L (3.5-5.0); SODIUM 126 mmol/L (135-145)
[2022-02-18 10:19] LABS: KETONES, SERUM (ACETEST) SMALL (NEGATIVE)
[2022-02-18] MEDS ORDERED: INSULIN REGULAR HUMAN 300 UNIT/3 ML VIAL IVP ONE (10:27)
[2022-02-18 10:50] LABS: KETONES, SERUM (ACETEST) SMALL (NEGATIVE)
[2022-02-18 10:54] LABS: BUN - BLOOD UREA NITROGEN 21 mg/dL (6-20); CALCIUM 9.2 mg/dL (8.5-10.3); CARBON DIOXIDE - CO2 24 mmol/L (21-32); CHLORIDE 95 mmol/L (101-111); CREATININE 0.9 mg/dL (0.4-1.0); GFR - MDRD 67 (>89); GLUCOSE 497 mg/dL (70-100); MAGNESIUM 1.7 mg/dL (1.7-2.8); POTASSIUM 3.7 mmol/L (3.5-5.0); SODIUM 127 mmol/L (135-145)
[2022-02-18 11:02] LABS: ESTIMATED AVERAGE GLUCOSE 286 mg/dL (70-100); HEMOGLOBIN A1c% 11.6 % (4.27-6.07)
--- NOTE | 2022-02-18 12:02 | XRAY Report ---
PROCEDURE: Chest for Line Placement INDICATIONS: CVL placement TECHNIQUE: One view of the chest was acquired. COMPARISON: CT 02/17/2022 FINDINGS: Surgical changes and devices: Right central venous catheter terminates in the at the cavoatrial junc tion. Lungs and pleura: Low lung volumes. No dense consolidation or pleural effusion. Mediastinum: Heart size is at the upper limit of normal. Bones and chest wall: No suspicious bony lesions. Overlying soft tissues appear unremarkable. IMPRESSION: Low lung volumes without acute radiographic abnormality. Central venous line terminates at the cavoat rial junction. Reviewed by: Pavel Becerra MD on 02/18/2022 12:01 PM PST Approved by: Pavel Becerra MD on 02/18/2022 12:01 PM PST Station ID: [id number]
[2022-02-18] MEDS: INSULIN REGULAR HUMAN 100 UNIT in SODIUM CHLORIDE 0.9% 100ML 99 ML IV SCH ×2 (12:13→16:15)
[2022-02-18] MEDS ORDERED: SODIUM CHLORIDE 0.9% 500 ML IV ONE ×2 (12:45→22:34)
[2022-02-18 12:54] LABS: BILIRUBIN,URINE NEGATIVE (NEGATIVE); GLUCOSE, URINE (UA) >=1000 mg/dL (NEGATIVE); KETONES,URINE (UA) NEGATIVE (NEGATIVE); LEUKOCYTE ESTERASE, URINE TRACE (NEGATIVE); NITRITE,URINE NEGATIVE (NEGATIVE); OCCULT BLOOD,URINE MODERATE (NEGATIVE); PROTEIN,URINE NEGATIVE (NEGATIVE); UROBILINOGEN,URINE 1 (NORMAL) E.U./dL (NORMAL)
[2022-02-18 13:02] LABS: BACTERIA,URINE Few /HPF (None Seen); CLARITY,URINE SL. CLOUDY (CLEAR); SQUAMOUS EPITHELIAL CELL,UR MANY Squamous (<= Few)
[2022-02-18] MEDS: ASPIRIN EC 81 MG TABLET PO SCH (13:24)
[2022-02-18] MEDS: SODIUM CHLORIDE FLUSH 0.9% 10 ML SYRINGE IVP PRN ×4 (13:33→18:38)
--- NOTE | 2022-02-18 13:34 | ANESTHESIA PROCEDURE NOTE ---
Anesth Central Line Template - Central Line Central Line Preparation: Consent Obtained Central line location: Right IJ Central line type: Triple lumen Central line catheter tip site resides: Atrium, right Central line aftercare: Chlorhexidine disc placed, Secured, Placement confirmed, No pneumothorax, No complications, Bundle checklist complete, Pt tolerated well
--- NOTE | 2022-02-18 13:37 | CONSULTATION NOTE ---
Consultation Report: consulted by Hospitalist for CVL placement. Informed consent obtained. 7Fr 3- lumen CVL placed in R IJ with US guidance. Sterile technique maintained. Pt tolerated well. NAC. Placement confirmed with port CXR
[2022-02-18] MEDS: NITROGLYCERIN SL 0.4 MG TABLET SL PRN ×2 (13:40→15:40)
[2022-02-18 14:15] LABS: BUN - BLOOD UREA NITROGEN 19 mg/dL (6-20); CALCIUM 8.9 mg/dL (8.5-10.3); CARBON DIOXIDE - CO2 25 mmol/L (21-32); CHLORIDE 96 mmol/L (101-111); CREATININE 0.8 mg/dL (0.4-1.0); GFR - MDRD 77 (>89); GLUCOSE 410 mg/dL (70-100); MAGNESIUM 1.5 mg/dL (1.7-2.8); POTASSIUM 3.3 mmol/L (3.5-5.0); SODIUM 129 mmol/L (135-145)
[2022-02-18 14:20] LABS: KETONES, SERUM (ACETEST) SMALL (NEGATIVE)
[2022-02-18] MEDS ORDERED: POTASSIUM CHLOR 20 MEQ/100 ML 20 MEQ/100 ML BAG IV ONE (15:59)
[2022-02-18] MEDS ORDERED: MAGNESIUM SULFATE 2 GRAM 2 GM/50 ML BAG IV ONE ×2 (16:00→19:47)
[2022-02-18] MEDS: ONDANSETRON 4 MG/2 ML VIAL IVP PRN (16:13)
[2022-02-18] MEDS ORDERED: SODIUM CHLORIDE FLUSH 0.9% 10 ML SYRINGE IVP SCH (17:00)
--- NOTE | 2022-02-18 17:24 | PHARMACY PROGRESS NOTE ---
- Best Possible Medication History Admit Date and Time: 02/18/22 0841 Processed by: Pharmacy Medication History completed: Yes Patient Interview: Completed Secondary Source(s): Physician records (PT BROUGHT IN PRINTED MEDLIST FROM MD OFFICE AND MED REC WAS DONE BASED ON THAT. ALSO SPOKE WITH PATIENT REGARDING EACH MED.) As the person ultimately responsible for medication therapy, providers are able to order a medication from an existing home medication list in [facility] via the "Reconcile Routine" prior to Confirmation of that medication by product support technician. Such practice is discouraged except when the physician, in their clinical judgment, deems that a medical need exists for a medication without regard to previous use.
[2022-02-18] MEDS: ACETAMINOPHEN 1,000 MG/100 ML 1,000 MG/100 ML BAG IV PRN (17:30)
[2022-02-18] MEDS: PROCHLORPERAZINE 10 MG/2 ML VIAL IVP PRN (17:54)
[2022-02-18] MEDS ORDERED: DEXTROSE 5% 1,000 ML IV SCH ×2 (18:00→18:59)
--- NOTE | 2022-02-18 18:33 | XRAY Report ---
PROCEDURE: Chest 1 View X-Ray INDICATIONS: Worse cough, vomiting TECHNIQUE: One view of the chest was acquired. COMPARISON: None. FINDINGS: Surgical changes and devices: Right IJ since venous line tip at the cavoatrial junction, similar margie or exam. Lungs and pleura: Elevated right hemidiaphragm. Moderate vascular congestion noted. Mediastinum: Mediastinal contours appear normal. Heart size is normal. Bones and chest wall: No suspicious bony lesions. Overlying soft tissues appear unremarkable. IMPRESSION: Moderate vascular congestion without pneumothorax or pleural effusion Reviewed by: Piero Langford MD on 02/18/2022 5:31 PM AKST Approved by: Piero Langford MD on 02/18/2022 5:31 PM AKST Station ID: [id number]
[2022-02-18 18:54] LABS: MAGNESIUM 1.8 mg/dL (1.7-2.8); POTASSIUM 3.9 mmol/L (3.5-5.0)
[2022-02-18] MEDS ORDERED: KETOROLAC 30 MG/ML VIAL IVP PRN (19:46)
[2022-02-18] MEDS ORDERED: POTASSIUM PHOSPHATE 15 MMOL in SODIUM CHLORIDE 0.9% 250 ML IV ONE (19:59)
[2022-02-18] MEDS: FAMOTIDINE 20 MG/2 ML VIAL IVP SCH (21:51)
[2022-02-18] MEDS: ATORVASTATIN 10 MG TABLET PO SCH (21:51)
--- NOTE | 2022-02-19 01:20 | PROVIDER PROGRESS NOTE ---
Creative Designer Note - Creative Designer Note Creative Designer Note: RN contacted to report abnormal lab results: Troponin 74.5, up from 57.9 from earlier today. Troponins were drawn earlier b/c pt reported CP. EKG at that time did not show changes. Pt was then given Nitroglycerin, which dropped her BP, which improved with IVF bolus. Pt's BP now dropping again, gave 1L NS bolus, but SBPs still in the 70s. -Will start Levophed for Hypotension. Pt has Central Line. -Continue to trend Troponins, repeat EKG. -start Heparin drip for NSTEMI. Per RN, Long Line Teamster and Yard Operator not consultable at night. -will order Echo. -Narcisa Shipley MD Hospitalist
[2022-02-19] MEDS ORDERED: NOREPINEPHRINE/D5W 8 MG/250 ML BAG IV SCH (01:45)
[2022-02-19] MEDS ORDERED: HEPARIN 25000UNITS/500ML (D5W) 25,000 UNIT/500 ML BAG IV SCH (02:00)
[2022-02-19 02:06] LABS: HCT - HEMATOCRIT 34.6 % (37.0-47.0); HGB - HEMOGLOBIN 10.9 g/dL (12.0-16.0); MEAN CORPUSCULAR HEMOGLOBIN 25.3 pg (27.0-31.0); MEAN CORPUSCULAR HGB CONC 31.5 g/dL (32.0-36.0); MEAN CORPUSCULAR VOLUME 80.3 fL (81.0-99.0); RED BLOOD COUNT 4.31 10^6/uL (4.20-5.40); RED CELL DISTRIBUTION WIDTH 13.4 % (12.0-15.0); WHITE BLOOD COUNT 9.2 x10^3/uL (4.8-10.8)
[2022-02-19] MEDS: POTASSIUM CHLOR 10 MEQ/100 ML 10 MEQ/100 ML BAG IV SCH ×2 (03:03→04:48)
[2022-02-19] MEDS: INSULIN REGULAR HUMAN 100 UNIT in SODIUM CHLORIDE 0.9% 100ML 99 ML IV SCH (03:23)
[2022-02-19 03:57] LABS: BUN - BLOOD UREA NITROGEN 18 mg/dL (6-20); CALCIUM 9.2 mg/dL (8.5-10.3); CARBON DIOXIDE - CO2 25 mmol/L (21-32); CHLORIDE 104 mmol/L (101-111); CREATININE 0.7 mg/dL (0.4-1.0); GFR - MDRD 90 (>89); GLUCOSE 164 mg/dL (70-100); POTASSIUM 3.8 mmol/L (3.5-5.0); SODIUM 135 mmol/L (135-145)
[2022-02-19 04:03] LABS: KETONES, SERUM (ACETEST) SMALL (NEGATIVE)
[2022-02-19] MEDS: SODIUM CHLORIDE FLUSH 0.9% 10 ML SYRINGE IVP SCH ×3 (04:52→16:40)
[2022-02-19] MEDS: PROCHLORPERAZINE 10 MG/2 ML VIAL IVP PRN (04:58)
[2022-02-19] MEDS: SODIUM CHLORIDE FLUSH 0.9% 10 ML SYRINGE IVP PRN (04:59)
[2022-02-19 05:33] LABS: BASOPHILS # (AUTO) 0.1 10^3/uL (0.0-0.1); BASOPHILS % (AUTO) 0.4 %; EOSINOPHILS % (AUTO) 0.1 %; HCT - HEMATOCRIT 41.8 % (37.0-47.0); HGB - HEMOGLOBIN 12.9 g/dL (12.0-16.0); LYMPHOCYTES # (AUTO) 1.4 10^3/uL (1.5-3.5); MEAN CORPUSCULAR HEMOGLOBIN 24.8 pg (27.0-31.0); MEAN CORPUSCULAR HGB CONC 30.9 g/dL (32.0-36.0); MEAN CORPUSCULAR VOLUME 80.4 fL (81.0-99.0); MEAN PLATELET VOLUME 10.6 fL (7.9-10.8); MONOCYTES # (AUTO) 0.8 10^3/uL (0.0-1.0); NEUTROPHILS # (AUTO) 9.6 10^3/uL (1.5-6.6); NEUTROPHILS % (AUTO) 80.2 %; PLT - PLATELET COUNT 220 10^3/uL (130-450); RED CELL DISTRIBUTION WIDTH 13.5 % (12.0-15.0); WHITE BLOOD COUNT 11.9 x10^3/uL (4.8-10.8)
[2022-02-19] MEDS: SODIUM CHLORIDE 0.9% 1,000 ML IV SCH (07:42)
[2022-02-19] MEDS: ACETAMINOPHEN 1,000 MG/100 ML 1,000 MG/100 ML BAG IV PRN (08:22)
[2022-02-19] MEDS: FAMOTIDINE 20 MG/2 ML VIAL IVP SCH ×2 (08:23→20:51)
[2022-02-19] MEDS: SERTRALINE 50 MG TABLET PO SCH (08:24)
[2022-02-19] MEDS: cefTRIAXone 2 GM in SODIUM CHLORIDE 0.9% MINIBAG 100 ML IV SCH (08:34)
[2022-02-19] MEDS ORDERED: lisinopriL 5 MG TABLET PO SCH (09:00)
[2022-02-19] MEDS ORDERED: amLODIPine 5 MG TABLET PO SCH (09:00)
[2022-02-19 09:10] LABS: HCT - HEMATOCRIT 34.1 % (37.0-47.0); HGB - HEMOGLOBIN 10.7 g/dL (12.0-16.0); MEAN CORPUSCULAR VOLUME 80.2 fL (81.0-99.0); RED BLOOD COUNT 4.25 10^6/uL (4.20-5.40)
[2022-02-19 09:11] LABS: MEAN CORPUSCULAR HEMOGLOBIN 25.2 pg (27.0-31.0); MEAN CORPUSCULAR HGB CONC 31.4 g/dL (32.0-36.0); MEAN PLATELET VOLUME 10.6 fL (7.9-10.8); RED CELL DISTRIBUTION WIDTH 13.7 % (12.0-15.0)
[2022-02-19] MEDS: ENOXAPARIN 40 MG/0.4 ML SYRINGE SUBQ SCH ×2 (10:27→11:18)
[2022-02-19 10:57] LABS: CALCIUM 8.8 mg/dL (8.5-10.3); CREATININE 0.7 mg/dL (0.4-1.0); PHOSPHORUS 1.4 mg/dL (2.5-4.6); POTASSIUM 3.7 mmol/L (3.5-5.0)
[2022-02-19] MEDS: ASPIRIN EC 81 MG TABLET PO SCH (11:18)
[2022-02-19] MEDS: INSULIN LISPRO 300 UNIT/3 ML PEN SUBQ SCH ×3 (12:00→20:52)
[2022-02-19] MEDS: NEUTRA-PHOS 250 MG TABLET PO SCH ×2 (12:00→14:58)
[2022-02-19] MEDS ORDERED: DEXTROSE 5% 1,000 ML IV SCH (13:18)
[2022-02-19] MEDS ORDERED: SODIUM CHLORIDE 0.9% 1,000 ML IV SCH (13:19)
--- NOTE | 2022-02-19 13:22 | PROVIDER PROGRESS NOTE ---
Subjective - Subjective Pt reports feeling: Improved (Her confusion and weakness has resolved. Overnight she spiked a fever, her blood pressure was very low, she was put on nor epi by the telemedicine night doctor and because troponins were above normal range she was started on empiric IV heparin drip and an EKG ordered for the morning. BP normal now.) Objective - Vital Signs/Intake & Output Reviewed Vital Signs: Yes Vital Signs: Vital Signs Temp Pulse Resp BP Pulse Ox O2 Flow Rate 02/19/22 13:00 36.9 C 71 24 124/61 97 02/19/22 12:03 75 18 148/69 H 92 2 02/19/22 11:00 68 18 132/65 H 100 2 02/19/22 09:49 2 Intake & Output: Intake & Output 02/16/22 02/17/22 02/18/22 02/19/22 23:59 23:59 23:59 23:59 Intake Total 1100 5415.391 2843.174 Output Total 1780 450 Balance 1100 3635.391 2393.174 - Objective General Appearance: positive: No acute distress, Alert Eyes Bilateral: positive: Normal inspection, EOMI ENT: positive: ENT inspection nml, Other (Cheeks are flushed) Neck: positive: Nml inspection Respiratory: positive: No respiratory distress Cardiovascular: positive: Regular rate & rhythm, No murmur Abdomen: positive: Non-tender, Other (Obese with pannus) Skin: positive: Warm, Dry Extremities: positive: Non-tender, No pedal edema Neurologic/Psychiatric: positive: Oriented x3, Motor nml - Lab Results Fish Bones: 02/19/22 09:00 02/19/22 08:15 Other Labs: Lab Results x24hrs 02/19/22 02/19/22 02/19/22 Range/Units 09:00 09:00 08:15 WBC 7.0 (4.8-10.8) x10^3/uL RBC 4.25 (4.20-5.40) 10^6/uL Hgb 10.7 L (12.0-16.0) g/dL Hct 34.1 L (37.0-47.0) % MCV 80.2 L (81.0-99.0) fL MCH 25.2 L (27.0-31.0) pg MCHC 31.4 L (32.0-36.0) g/dL RDW 13.7 (12.0-15.0) % Plt Count 161 (130-450) 10^3/uL MPV 10.6 (7.9-10.8) fL Neut # (Auto) (1.5-6.6) 10^3/uL Lymph # (Auto) (1.5-3.5) 10^3/uL Hooker # (Auto) (0.0-1.0) 10^3/uL Eos # (Auto) (0.0-0.7) 10^3/uL Baso # (Auto) (0.0-0.1) 10^3/uL Absolute Nucleated RBC x10^3/uL Nucleated RBC % /100WBC APTT 43.4 H (24.9-33.3) secs Sodium 133 L (135-145) mmol/L Potassium 3.7 (3.5-5.0) mmol/L Chloride 104 (101-111) mmol/L Carbon Dioxide 25 (21-32) mmol/L Anion Gap 4.0 L (6-13) BUN 17 (6-20) mg/dL Creatinine 0.7 (0.4-1.0) mg/dL Estimated GFR (MDRD) 90 (>89) Glucose 156 H (70-100) mg/dL Calcium 8.8 (8.5-10.3) mg/dL Phosphorus 1.4 L (2.5-4.6) mg/dL Magnesium (1.7-2.8) mg/dL Troponin I High Sens (2.3-14.8) ng/L Nasal Screen MRSA (PCR) (NEGATIVE) Serum Ketones (NEGATIVE) 02/19/22 02/19/22 02/19/22 Range/Units 08:15 05:32 05:15 WBC 11.9 H (4.8-10.8) x10^3/uL RBC 5.20 (4.20-5.40) 10^6/uL Hgb 12.9 (12.0-16.0) g/dL Hct 41.8 (37.0-47.0) % MCV 80.4 L (81.0-99.0) fL MCH 24.8 L (27.0-31.0) pg MCHC 30.9 L (32.0-36.0) g/dL RDW 13.5 (12.0-15.0) % Plt Count 220 (130-450) 10^3/uL MPV 10.6 (7.9-10.8) fL Neut # (Auto) 9.6 H (1.5-6.6) 10^3/uL Lymph # (Auto) 1.4 L (1.5-3.5) 10^3/uL Hooker # (Auto) 0.8 (0.0-1.0) 10^3/uL Eos # (Auto) 0.0 (0.0-0.7) 10^3/uL Baso # (Auto) 0.1 (0.0-0.1) 10^3/uL Absolute Nucleated RBC 0.00 x10^3/uL Nucleated RBC % 0.0 /100WBC APTT (24.9-33.3) secs Sodium (135-145) mmol/L Potassium (3.5-5.0) mmol/L Chloride (101-111) mmol/L Carbon Dioxide (21-32) mmol/L Anion Gap (6-13) BUN (6-20) mg/dL Creatinine (0.4-1.0) mg/dL Estimated GFR (MDRD) (>89) Glucose (70-100) mg/dL Calcium (8.5-10.3) mg/dL Phosphorus (2.5-4.6) mg/dL Magnesium (1.7-2.8) mg/dL Troponin I High Sens (2.3-14.8) ng/L Nasal Screen MRSA (PCR) (NEGATIVE) Serum Ketones NEGATIVE SMALL H (NEGATIVE) 02/19/22 02/19/22 02/19/22 Range/Units 03:35 03:30 01:45 WBC 9.2 (4.8-10.8) x10^3/uL RBC 4.31 (4.20-5.40) 10^6/uL Hgb 10.9 L (12.0-16.0) g/dL Hct 34.6 L (37.0-47.0) % MCV 80.3 L (81.0-99.0) fL MCH 25.3 L (27.0-31.0) pg MCHC 31.5 L (32.0-36.0) g/dL RDW 13.4 (12.0-15.0) % Plt Count 161 (130-450) 10^3/uL MPV 11.0 H (7.9-10.8) fL Neut # (Auto) (1.5-6.6) 10^3/uL Lymph # (Auto) (1.5-3.5) 10^3/uL Hooker # (Auto) (0.0-1.0) 10^3/uL Eos # (Auto) (0.0-0.7) 10^3/uL Baso # (Auto) (0.0-0.1) 10^3/uL Absolute Nucleated RBC x10^3/uL Nucleated RBC % /100WBC APTT (24.9-33.3) secs Sodium 135 (135-145) mmol/L Potassium 3.8 (3.5-5.0) mmol/L Chloride 104 (101-111) mmol/L Carbon Dioxide 25 (21-32) mmol/L Anion Gap 6.0 (6-13) BUN 18 (6-20) mg/dL Creatinine 0.7 (0.4-1.0) mg/dL Estimated GFR (MDRD) 90 (>89) Glucose 164 H (70-100) mg/dL Calcium 9.2 (8.5-10.3) mg/dL Phosphorus (2.5-4.6) mg/dL Magnesium (1.7-2.8) mg/dL Troponin I High Sens 33.1 H* (2.3-14.8) ng/L Nasal Screen MRSA (PCR) (NEGATIVE) Serum Ketones SMALL H (NEGATIVE) 02/19/22 02/18/22 02/18/22 Range/Units 01:45 23:45 21:20 WBC (4.8-10.8) x10^3/uL RBC (4.20-5.40) 10^6/uL Hgb (12.0-16.0) g/dL Hct (37.0-47.0) % MCV (81.0-99.0) fL MCH (27.0-31.0) pg MCHC (32.0-36.0) g/dL RDW (12.0-15.0) % Plt Count (130-450) 10^3/uL MPV (7.9-10.8) fL Neut # (Auto) (1.5-6.6) 10^3/uL Lymph # (Auto) (1.5-3.5) 10^3/uL Hooker # (Auto) (0.0-1.0) 10^3/uL Eos # (Auto) (0.0-0.7) 10^3/uL Baso # (Auto) (0.0-0.1) 10^3/uL Absolute Nucleated RBC x10^3/uL Nucleated RBC % /100WBC APTT 20.0 L (24.9-33.3) secs Sodium (135-145) mmol/L Potassium (3.5-5.0) mmol/L Chloride (101-111) mmol/L Carbon Dioxide (21-32) mmol/L Anion Gap (6-13) BUN (6-20) mg/dL Creatinine (0.4-1.0) mg/dL Estimated GFR (MDRD) (>89) Glucose (70-100) mg/dL Calcium (8.5-10.3) mg/dL Phosphorus (2.5-4.6) mg/dL Magnesium (1.7-2.8) mg/dL Troponin I High Sens 74.5 H* (2.3-14.8) ng/L Nasal Screen MRSA (PCR) (NEGATIVE) Serum Ketones NEGATIVE (NEGATIVE) 02/18/22 02/18/22 02/18/22 Range/Units 21:20 18:37 17:58 WBC (4.8-10.8) x10^3/uL RBC (4.20-5.40) 10^6/uL Hgb (12.0-16.0) g/dL Hct (37.0-47.0) % MCV (81.0-99.0) fL MCH (27.0-31.0) pg MCHC (32.0-36.0) g/dL RDW (12.0-15.0) % Plt Count (130-450) 10^3/uL MPV (7.9-10.8) fL Neut # (Auto) (1.5-6.6) 10^3/uL Lymph # (Auto) (1.5-3.5) 10^3/uL Hooker # (Auto) (0.0-1.0) 10^3/uL Eos # (Auto) (0.0-0.7) 10^3/uL Baso # (Auto) (0.0-0.1) 10^3/uL Absolute Nucleated RBC x10^3/uL Nucleated RBC % /100WBC APTT (24.9-33.3) secs Sodium (135-145) mmol/L Potassium 3.9 (3.5-5.0) mmol/L Chloride (101-111) mmol/L Carbon Dioxide (21-32) mmol/L Anion Gap (6-13) BUN (6-20) mg/dL Creatinine (0.4-1.0) mg/dL Estimated GFR (MDRD) (>89) Glucose (70-100) mg/dL Calcium (8.5-10.3) mg/dL Phosphorus (2.5-4.6) mg/dL Magnesium 1.8 (1.7-2.8) mg/dL Troponin I High Sens 57.9 H* (2.3-14.8) ng/L Nasal Screen MRSA (PCR) (NEGATIVE) Serum Ketones NEGATIVE (NEGATIVE) 02/18/22 02/18/22 02/18/22 Range/Units 17:58 13:34 13:34 WBC (4.8-10.8) x10^3/uL RBC (4.20-5.40) 10^6/uL Hgb (12.0-16.0) g/dL Hct (37.0-47.0) % MCV (81.0-99.0) fL MCH (27.0-31.0) pg MCHC (32.0-36.0) g/dL RDW (12.0-15.0) % Plt Count (130-450) 10^3/uL MPV (7.9-10.8) fL Neut # (Auto) (1.5-6.6) 10^3/uL Lymph # (Auto) (1.5-3.5) 10^3/uL Hooker # (Auto) (0.0-1.0) 10^3/uL Eos # (Auto) (0.0-0.7) 10^3/uL Baso # (Auto) (0.0-0.1) 10^3/uL Absolute Nucleated RBC x10^3/uL Nucleated RBC % /100WBC APTT (24.9-33.3) secs Sodium 129 L (135-145) mmol/L Potassium 3.3 L (3.5-5.0) mmol/L Chloride 96 L (101-111) mmol/L Carbon Dioxide 25 (21-32) mmol/L Anion Gap 8.0 (6-13) BUN 19 (6-20) mg/dL Creatinine 0.8 (0.4-1.0) mg/dL Estimated GFR (MDRD) 77 L (>89) Glucose 410 H (70-100) mg/dL Calcium 8.9 (8.5-10.3) mg/dL Phosphorus 1.7 L (2.5-4.6) mg/dL Magnesium 1.5 L (1.7-2.8) mg/dL Troponin I High Sens (2.3-14.8) ng/L Nasal Screen MRSA (PCR) (NEGATIVE) Serum Ketones SMALL H SMALL H (NEGATIVE) 02/18/22 Range/Units 12:44 WBC (4.8-10.8) x10^3/uL RBC (4.20-5.40) 10^6/uL Hgb (12.0-16.0) g/dL Hct (37.0-47.0) % MCV (81.0-99.0) fL MCH (27.0-31.0) pg MCHC (32.0-36.0) g/dL RDW (12.0-15.0) % Plt Count (130-450) 10^3/uL MPV (7.9-10.8) fL Neut # (Auto) (1.5-6.6) 10^3/uL Lymph # (Auto) (1.5-3.5) 10^3/uL Hooker # (Auto) (0.0-1.0) 10^3/uL Eos # (Auto) (0.0-0.7) 10^3/uL Baso # (Auto) (0.0-0.1) 10^3/uL Absolute Nucleated RBC x10^3/uL Nucleated RBC % /100WBC APTT (24.9-33.3) secs Sodium (135-145) mmol/L Potassium (3.5-5.0) mmol/L Chloride (101-111) mmol/L Carbon Dioxide (21-32) mmol/L Anion Gap (6-13) BUN (6-20) mg/dL Creatinine (0.4-1.0) mg/dL Estimated GFR (MDRD) (>89) Glucose (70-100) mg/dL Calcium (8.5-10.3) mg/dL Phosphorus (2.5-4.6) mg/dL Magnesium (1.7-2.8) mg/dL Troponin I High Sens (2.3-14.8) ng/L Nasal Screen MRSA (PCR) NEGATIVE (NEGATIVE) Serum Ketones (NEGATIVE) - Other Results/Comments Other Results/Comments: EKG done today (which I interpreted): Normal sinus rhythm, rate 79, LVH voltage, baseline wander but anterior ST elevations are seen, probably due to LVH. No significant change from the previous day. Assessment/Plan - Problem List (1) Bacteremia due to Klebsiella pneumoniae Impression: She is on empiric ceftriaxone that was started for what the telemedicine admitting doctor thought was an FUO. Chest x-ray did not have any infiltrates and she even had a CTA. Urinalysis was not a clean-catch, had many squamous cells. Lactate level has been normal. Plan: Will continue with empiric IV antibiotics, continue ceftriaxone for now Await blood culture results further sensitivities Will redraw blood cultures if she has a fever spike and will redraw in a few days, to assure her blood cultures have turned negative (2) DKA, type 2 Impression: Serum ketones are neg this morning. She has had diabetes for 10 years, unknown how long insulin dependent she is. The patient reports having A1c done about a month ago and it was about 8. Possibly her viral syndrome of cough, fever and nausea vomiting threw her into DKA. Given the bacteremia, possibly the source of the Klebsiella bacteremia threw her into the DKA Plan: We will transition from insulin drip to Lantus and sliding scale insulin. Will start a diabetic diet advancing from clear liquids since she is no longer nauseated. She is nearly ready for transfer out of the ICU Continue to treat bacteremia which is likely the cause of going into DKA (3) Nausea and vomiting Impression: She had this over the last 2 days at home along with a cough therefore may be an overall viral picture. However the nausea and vomiting is very consistent with having DKA, and the DKA is likely from her bacteremia. She was vomiting yesterday, today N/V gone and she wants to advance the diet Plan: IV Zofran and iv Compazine as needed to alternate antiemetics, prn. (5) Hypotension Impression: Improved. Yesterday morning the patient had a temporary blood pressure drop when all her morning meds for blood pressure were administered which are at high doses. The doses of those BP meds were then decreased. Overnight however she again had a fever spike and dropped her pressure to below 80 systolic. The telemedicine doctor was called and started her on norepinephrine drip and because of concern for an acute IA also started empiric heparin drip. Her troponins are flat and she has ruled out for an IA. Her blood pressures are 140-160 syst and the norepinephrine has been weaned to off by NET SORTER. Plan: Remain off and will discontinue the norepinephrine drip We will stop the heparin drip since she has ruled out for an IA Continue with these much lower BP med doses The patient is nearly ready to be transferred out of the ICU (4) Chest pain Impression: Yesterday she told her RN about right-sided chest pain radiating to the right lateral rib cage and to the back. Sublingual nitroglycerin was tried, it had minimal effect, the discomfort decreased on its own over an hour. This was when she was having worsening vomiting and was felt to be atypical pain for angina. Today I am able to get detailed information from her: when she needed the coronary angio, this was preceded by chest pain and it was in the right side. She does take sublingual nitroglycerin as needed at home and says that it has nearly no effect. She gets "better relief from tizanidine muscle relaxant". Because she has a history of CAD, troponins were recycled, and she had no IA. A repeat EKG was done today and it is no change from yesterday Plan: We will continue with her usual CAD meds. I told her, and the aunt and cousin at bedside, that she needs to go to her [employer] to determine if her right-sided chest pain is angina or muscle spasms. (7) Chronic systolic heart failure Impression: The aunt confirmed and the ER was aware that the patient has an LVEF of 43%. This was from a recent work-up done several months ago in [place], the aunt told me. We have no Echos here on her Plan: Follow I's and O's carefully and watch for desaturation, while she is getting aggressive IV fluids Continue with her other cardiac medications like SANDRA inhibitor and carvedilol (8) CAD (coronary artery disease) Impression: As per history provided to me by the aunt at bedside today. She has a 70% coronary stenosis, but the aunt does not know in which coronary artery, and it was not stented Plan: Continue with her antiplatelet and statin medications Her empiric IV heparin drip may be discontinued (9) PVD (peripheral vascular disease) Impression: Carotid disease is present and it is significant at about 70% on the R. It was not stented for fear of causing downstream embolization. Plan: Continue with her antiplatelet and cholesterol medication (10) Morbid obesity BMI 45-49 As per Hx. 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 The aunt gave me details, at bedside today. After this event it left her with fear of crowds. She has now gotten over that (12) Metabolic encephalopathy Impression: Resolved. She appeared fatigued but she had only brief answers yesterday. The aunt is at her bedside and says she always gets confused when she has a fever or is sick overall Plan: Continue to treat the underlying cause of her fevers and infection
[2022-02-19] MEDS ORDERED: DEXTROSE 5%-0.9% NACL 1,000 ML IV SCH (16:00)
[2022-02-19] MEDS: ATORVASTATIN 10 MG TABLET PO SCH (20:51)
[2022-02-19] MEDS: INSULIN GLARGINE-YFGN 300 UNIT/3 ML PEN SUBQ SCH (20:52)
[2022-02-20] MEDS: SODIUM CHLORIDE FLUSH 0.9% 10 ML SYRINGE IVP SCH ×3 (05:20→17:21)
[2022-02-20 05:29] LABS: EOSINOPHILS # (AUTO) 0.1 10^3/uL (0.0-0.7); EOSINOPHILS % (AUTO) 1.9 %; HCT - HEMATOCRIT 33.7 % (37.0-47.0); HGB - HEMOGLOBIN 10.6 g/dL (12.0-16.0); LYMPHOCYTES # (AUTO) 0.9 10^3/uL (1.5-3.5); LYMPHOCYTES % (AUTO) 21.6 %; MEAN CORPUSCULAR HEMOGLOBIN 25.3 pg (27.0-31.0); MEAN CORPUSCULAR HGB CONC 31.5 g/dL (32.0-36.0); MEAN CORPUSCULAR VOLUME 80.4 fL (81.0-99.0); MEAN PLATELET VOLUME 10.6 fL (7.9-10.8); MONOCYTES # (AUTO) 0.5 10^3/uL (0.0-1.0); NEUTROPHILS # (AUTO) 2.6 10^3/uL (1.5-6.6); PLT - PLATELET COUNT 169 10^3/uL (130-450); RED BLOOD COUNT 4.19 10^6/uL (4.20-5.40); RED CELL DISTRIBUTION WIDTH 13.7 % (12.0-15.0); WHITE BLOOD COUNT 4.2 x10^3/uL (4.8-10.8)
[2022-02-20 05:38] LABS: CALCIUM 9.3 mg/dL (8.5-10.3); CREATININE 0.7 mg/dL (0.4-1.0); MAGNESIUM 1.8 mg/dL (1.7-2.8); PHOSPHORUS 2.5 mg/dL (2.5-4.6); POTASSIUM 3.6 mmol/L (3.5-5.0)
[2022-02-20] MEDS: INSULIN LISPRO 300 UNIT/3 ML PEN SUBQ SCH ×4 (08:30→22:20)
[2022-02-20] MEDS: ENOXAPARIN 40 MG/0.4 ML SYRINGE SUBQ SCH (08:31)
[2022-02-20] MEDS: ASPIRIN EC 81 MG TABLET PO SCH (08:31)
[2022-02-20] MEDS: FAMOTIDINE 20 MG/2 ML VIAL IVP SCH (08:31)
[2022-02-20] MEDS: cefTRIAXone 2 GM in SODIUM CHLORIDE 0.9% MINIBAG 100 ML IV SCH (08:31)
[2022-02-20] MEDS: SERTRALINE 50 MG TABLET PO SCH (08:32)
[2022-02-20] MEDS: ACETAMINOPHEN 325 MG TABLET PO PRN ×2 (10:44→20:21)
[2022-02-20] MEDS ORDERED: tiZANidine 4 MG TABLET PO PRN (12:50)
--- NOTE | 2022-02-20 12:53 | PROVIDER PROGRESS NOTE ---
Assessment/Plan - Problem List (1) Bacteremia due to Klebsiella pneumoniae Assessment/Plan: She is on ceftriaxone that was started for what the telemedicine admitting doctor thought was an FUO. The source is unknown. Chest x-ray did not have any infiltrates and she even had a CTA. Urinalysis at adm was not a clean-catch, had many squamous cells. I reordered the U/A which was done 02/18 and it again had many squamous cells, not a good sample for culture Lactate level has been normal. Plan: We are continuing with ceftriaxone, as this Klebsiella is sens to it We redrew blood cultures when she had a fever spike, thiose are neg to date Will also redraw bld cx today, 48 hrs after her last fever, to assure her blood cultures are negative on treatment. (2) DM type 2 Impression: She is on insulin at home. Her A1c came back at 11.6, indicating very poor control. For most of the month of January 2022, she was ill, she had a viral syndrome for 1 week early in the Dec then presented with this bacteremia at the end of the month, which would raise glu levels. Plan: Now that her N/V has resolved, we have advanced her to a diabetic diet. Continue with sliding scale insulin coverage, Lantus insulin at p.m. which can be adjusted upward and a hypoglycemia protocol (3) HTN Impression: Prior to admission she was on carvedilol, lisinopril, isosorbide and HCTZ for blood pressure control. These all had to be stopped when she was hypotensive and in the ICU Plan: Will resume these at slightly lower doses and increase the doses when necessary. Will measure her orthostatic vital signs to assure she is not still dehydrated. Will order PT and OT evaluation (today is 02/20/2022, holiday and we do not have PT here today). (4) Chronic systolic heart failure Impression: The aunt confirmed and the ER was aware that the patient has an LVEF of 43%. This was from a recent work-up done several months ago in [place], the aunt told me. We have no Echos here on her Plan: Follow I's and O's carefully and watch for desaturation, while she was getting aggressive IV fluids We will resume her cardiac medications like SANDRA inhibitor and carvedilol (5) CAD (coronary artery disease) Impression: As per history provided to me by the aunt at bedside. She has a 70% coronary stenosis, but the aunt does not know in which coronary artery, and it was not stented. Plan: Continue with her antiplatelet and statin medications (6) PVD (peripheral vascular disease) Impression: Carotid disease is present and it is significant at about 70% on the R. It was not stented for fear of causing downstream embolization, per the aunt. Plan: Continue with her antiplatelet and cholesterol medication (7) Morbid obesity BMI 45-49 As per Hx. Plan: Continue as per diabetic management (8) DKA, type 2 Impression: Resolved. Pt was moved out of ICU yesterday afternoon. She has had diabetes for 10 years, unknown how long insulin dependent she is. The patient reports having A1c done about a month ago and it was about 8. Possibly her viral syndrome of cough, fever and nausea vomiting threw her into DKA. Given the bacteremia, possibly the source of the Klebsiella bacteremia threw her into the DKA Plan: Insulin drip was changed to Lantus and sliding scale insulin. Will start a diabetic diet advancing from clear liquids since she is no longer nauseated. Continue to treat bacteremia which is likely the cause of going into DKA (9) Hypotension Impression: Rersolved On 02/18 the patient had a temporary blood pressure drop when all her morning meds for blood pressure were administered , at their usual doses. The doses of those BP meds were then decreased. When she again had a fever spike, she dropped her pressure to below 80 systolic. The telemedicine doctor was called and started her on norepinephrine drip and because of concern for an acute KS also started empiric heparin drip. Her troponins were flat and she has ruled out for an KS. Her blood pressures were 140-160 syst and the norepinephrine was weaned to off in the ICU Plan: Will now restart at lower BP med doses (10) Chest pain Impression: On 02/18 she told her RN about right-sided chest pain radiating to the right lateral rib cage and to the back. Sublingual nitroglycerin was tried, it had minimal effect, the discomfort decreased on its own over an hour. This was when she was having worsening vomiting On 02/19, I was able to get detailed information from her: when she needed the coronary angio, this was preceded by chest pain and it was in the right side. She does take sublingual nitroglycerin as needed at home and says that it has nearly no effect. She gets "better relief from tizanidine muscle relaxant". Because she has a history of CAD, troponins were recycled, and she had no KS. A repeat EKG was done and it had no change from admission EKG Plan: I told her, and the aunt and cousin at bedside that day, that she needs to go to her Certified Professional Midwife to determine if her right-sided chest pain is angina or muscle spasms. Will restart her Tizanidine (11) History of spontaneous intraventricular hemorrhage due to cerebral aneurysm Impression: This happened 10 years ago and she was treated with coil, it is visible on imaging. The aunt gave me details, at bedside today. After this event it left her with fear of crowds. She has now gotten over that (12) Metabolic encephalopathy Impression: Resolved. She appeared fatigued and was groggy at admission The aunt was at her bedside and told me she always gets confused when she has a fever or is sick overall Plan: Continue to treat the underlying cause of her fevers and the infection - Current Meds Current Meds: Current Medications Generic Name Dose Route Start Last Admin Trade Name Freq PRN Reason Stop Dose Admin Acetaminophen 650 mg 02/19/22 20:47 02/20/22 10:44 Acetaminophen 325 Mg Tablet PO 650 mg Q4HR PRN Administration Pain or Fever > 38C (100.4F) Aspirin 81 mg 02/18/22 13:08 02/20/22 08:31 Aspirin Ec 81 Mg Tablet PO 81 mg DAILY RENA Administration Atorvastatin Calcium 10 mg 02/18/22 21:00 02/19/22 20:51 Atorvastatin 10 Mg Tablet PO 10 mg QPM RENA Administration Enoxaparin Sodium 40 mg 02/19/22 09:00 02/20/22 08:31 Enoxaparin 40 Mg/0.4 Ml Syringe SUBQ 40 mg DAILY RENA Administration Famotidine 20 mg 02/18/22 21:00 02/20/22 08:31 Famotidine 20 Mg/2 Ml Vial IVP 20 mg BID RENA Administration Ceftriaxone Sodium 2 gm/ 100 mls @ 200 mls/hr 02/18/22 09:00 02/20/22 09:05 Sodium Chloride IV Infused DAILY RENA Infusion Insulin Glargine-yfgn 10 unit 02/19/22 21:00 02/19/22 20:52 Insulin Glargine-Yfgn 300 Unit/3 Ml Pen SUBQ 10 unit QPM RENA Administration Insulin Human Lispro 1 - 5 unit 02/19/22 12:00 02/20/22 11:46 Insulin Lispro 300 Unit/3 Ml Pen SUBQ 2 unit 0800,1200,1700,2100 RENA Administration Protocol Nitroglycerin 0.4 mg 02/18/22 13:08 02/18/22 15:40 Nitroglycerin Sl 0.4 Mg Tablet SL 0.4 mg Q5MIN PRN Administration Chest Pain Ondansetron HCl 4 mg 02/17/22 23:39 02/18/22 04:01 Ondansetron Odt 4 Mg Tablet TL 4 mg Q6HR PRN Administration Nausea / Vomiting Ondansetron HCl 4 mg 02/17/22 23:39 02/18/22 16:13 Ondansetron 4 Mg/2 Ml Vial IVP 4 mg Q6HR PRN Administration Nausea / Vomiting Prochlorperazine Edisylate 10 mg 02/18/22 17:27 02/19/22 04:58 Prochlorperazine 10 Mg/2 Ml Vial IVP 10 mg Q6HR PRN Administration Nausea / Vomiting Sertraline HCl 50 mg 02/18/22 09:00 02/20/22 08:32 Sertraline 50 Mg Tablet PO 50 mg DAILY RENA Administration Sodium Chloride 10 ml 02/17/22 23:37 02/19/22 04:59 Sodium Chloride Flush 0.9% 10 Ml Syringe IVP 10 ml PRN PRN Administration NEEDED PER PROVIDER ORDERS Sodium Chloride 10 ml 02/18/22 01:00 02/20/22 08:31 Sodium Chloride Flush 0.9% 10 Ml Syringe IVP 10 ml 0100,0900,1700 [facility] Administration - Lab Result Fish Bone Diagrams: 02/20/22 05:19 02/20/22 05:19 - Additional Planning My Orders: My Active Orders 02/19/22 12:00 Insulin Lispro [Humalog Kwikpen U-100] 1 - 5 unit SUBQ 0800,1200,1700,2100 02/19/22 13:16 Edgar Discontinuation [RC] ONCE 02/19/22 Dinner DIET [Soft (Low Fiber) Diet] [DIET] 02/19/22 21:00 Insulin Glargine-Yfgn [Semglee] 10 unit SUBQ QPM 02/20/22 Evaluate and Treat OT [OT] Routine Evaluate and Treat PT [PT] Routine 02/20/22 09:26 Orthostatic [Vital Signs - Orthostatic] [RC] QSHIFT 02/20/22 12:37 Tizanidine HCl [Tizanidine HCl] 2 mg PO Q8H PRN 02/20/22 12:45 Miscellaenous Nursing Order [RC] QSHI Carvedilol [Coreg] 12.5 mg PO Q12H 02/20/22 13:00 carvediloL [Coreg] 6.25 mg PO ONCE ONE lisinopriL [Zestril] 20 mg PO DAILY 02/20/22 18:00 CULTURE, BLOOD #1 [RM] Routine 02/20/22 18:20 CULTURE, BLOOD #2 [RM] Routine 02/21/22 05:00 BMP - BASIC METABOLIC PANEL [CHEM] DAILYLAB CBC - COMP BLD CT W/AUTO DIFF [HEME] DAILYLAB 02/21/22 09:00 Isosorbide Mononitrate ER [Imdur] 60 mg PO DAILY 02/22/22 05:00 BMP - BASIC METABOLIC PANEL [CHEM] DAILYLAB CBC - COMP BLD CT W/AUTO DIFF [HEME] DAILYLAB 02/23/22 05:00 BMP - BASIC METABOLIC PANEL [CHEM] DAILYLAB Subjective - Subjective Patient Reports: Feeling Better, Resting Comfortably, Other (Still feels weak and has hardly gotten up to go to the bedside commode) Nursing Reports: Other (She told her RN that she has a cough) Objective Vital Signs: Vital Signs - 24 hr 02/19/22 02/19/22 02/19/22 13:00 14:46 17:00 Temperature 36.9 C 36.5 C 36.7 C Heart Rate [ Brachial] Heart Rate [ 71 70 67 Monitoring electrodes] Respiratory 24 20 20 Rate Blood Pressure 124/61 141/58 H 145/72 H [Right Brachial artery] Blood Pressure [Right Radial artery] O2 Saturation 97 95 97 If not protocol : Oxygen Flow, liters/minute 02/19/22 02/20/22 02/20/22 20:55 00:20 03:21 Temperature 36.9 C 36.8 C 36.7 C Heart Rate [ 82 79 Brachial] Heart Rate [ 81 Monitoring electrodes] Respiratory 20 16 18 Rate Blood Pressure 159/66 H 149/63 H [Right Brachial artery] Blood Pressure 166/73 H [Right Radial artery] O2 Saturation 96 95 94 If not protocol 2 : Oxygen Flow, liters/minute 02/20/22 02/20/22 02/20/22 07:39 08:09 08:28 Temperature 36.9 C Heart Rate [ 84 Brachial] Heart Rate [ Monitoring electrodes] Respiratory 16 18 Rate Blood Pressure 164/85 H [Right Brachial artery] Blood Pressure [Right Radial artery] O2 Saturation 98 96 If not protocol 2 2 : Oxygen Flow, liters/minute Oxygen O2 Source Room air I&O (Last 24 Hrs): Intake and Output Totals x24h 02/18/22 02/19/22 02/20/22 23:59 23:59 23:59 Intake Total 5415.391 3433.174 1791.333 Output Total 1780 550 650 Balance 3635.391 2883.174 1141.333 General: Alert, Oriented x3, No acute distress HEENT: EOMI, Other (Cheeks flushed) Neuro: Alert, Non Focal Cardiovascular: Regular rate, No murmurs (Distant heart sounds due to morbid obesity) Respiratory: No respiratory distress (Distant breath sounds due to morbid ob esity) Abdomen: Soft, Other (Obese with a pannus) Extremities: No clubbing, No edema, No tenderness/swelling - Results Results: Laboratory Results WBC 4.2 x10^3/uL (4.8-10.8) L 02/20/22 05:19 RBC 4.19 10^6/uL (4.20-5.40) L 02/20/22 05:19 Hgb 10.6 g/dL (12.0-16.0) L 02/20/22 05:19 Hct 33.7 % (37.0-47.0) L 02/20/22 05:19 MCV 80.4 fL (81.0-99.0) L 02/20/22 05:19 MCH 25.3 pg (27.0-31.0) L 02/20/22 05:19 MCHC 31.5 g/dL (32.0-36.0) L 02/20/22 05:19 RDW 13.7 % (12.0-15.0) 02/20/22 05:19 Plt Count 169 10^3/uL (130-450) 02/20/22 05:19 MPV 10.6 fL (7.9-10.8) 02/20/22 05:19 Neut # (Auto) 2.6 10^3/uL (1.5-6.6) 02/20/22 05:19 Lymph # (Auto) 0.9 10^3/uL (1.5-3.5) L 02/20/22 05:19 [place] # (Auto) 0.5 10^3/uL (0.0-1.0) 02/20/22 05:19 Eos # (Auto) 0.1 10^3/uL (0.0-0.7) 02/20/22 05:19 Baso # (Auto) 0.0 10^3/uL (0.0-0.1) 02/20/22 05:19 Absolute Nucleated RBC 0.00 x10^3/uL 02/20/22 05:19 Nucleated RBC % 0.0 /100WBC 02/20/22 05:19 APTT 43.4 secs (24.9-33.3) H 02/19/22 09:00 VBG pH 7.375 (7.31-7.41) 02/18/22 09:39 VBG pCO2 41.6 mmHg (41-51) 02/18/22 09:39 VBG pO2 57.9 mmHg (25-47) H 02/18/22 09:39 VBG HCO3 23.8 mmol/L (23-28) 02/18/22 09:39 VBG Total CO2 25.1 mmol/L (24-29) 02/18/22 09:39 VBG O2 Saturation 91.6 % (60-80) H 02/18/22 09:39 VBG Base Excess -1.4 mmol/L (-2 - +2) 02/18/22 09:39 Sodium 136 mmol/L (135-145) 02/20/22 05:19 Potassium 3.6 mmol/L (3.5-5.0) 02/20/22 05:19 Chloride 104 mmol/L (101-111) 02/20/22 05:19 Carbon Dioxide 27 mmol/L (21-32) 02/20/22 05:19 Anion Gap 5.0 (6-13) L 02/20/22 05:19 BUN 13 mg/dL (6-20) 02/20/22 05:19 Creatinine 0.7 mg/dL (0.4-1.0) 02/20/22 05:19 Estimated GFR (MDRD) 90 (>89) 02/20/22 05:19 Glucose 147 mg/dL (70-100) H 02/20/22 05:19 Estimat Average Glucose 286 mg/dL (70-100) H 02/18/22 08:34 Hemoglobin A1c % 11.6 % (4.27-6.07) H 02/18/22 08:34 Lactic Acid 1.5 mmol/L (0.5-2.2) 02/18/22 08:38 Calcium 9.3 mg/dL (8.5-10.3) 02/20/22 05:19 Phosphorus 2.5 mg/dL (2.5-4.6) 02/20/22 05:19 Magnesium 1.8 mg/dL (1.7-2.8) 02/20/22 05:19 Total Bilirubin 2.1 mg/dL (0.2-1.0) H 02/17/22 17:25 AST 17 IU/L (10-42) 02/17/22 17:25 ALT 19 IU/L (10-60) 02/17/22 17:25 Alkaline Phosphatase 94 IU/L (42-121) 02/17/22 17:25 Troponin I High Sens 33.1 ng/L (2.3-14.8) H* 02/19/22 03:35 Total Protein 7.8 g/dL (6.7-8.2) 02/17/22 17:25 Albumin 3.6 g/dL (3.2-5.5) 02/17/22 17:25 Globulin 4.2 g/dL (2.1-4.2) 02/17/22 17:25 Albumin/Globulin Ratio 0.9 (1.0-2.2) L 02/17/22 17:25 Urine Color YELLOW 02/18/22 12:44 Urine Clarity SL. CLOUDY (CLEAR) 02/18/22 12:44 Urine pH 6.0 PH (5.0-7.5) 02/18/22 12:44 Ur Specific Thayer 1.010 (1.002-1.030) 02/18/22 12:44 Urine Protein NEGATIVE mg/dL (NEGATIVE) 02/18/22 12:44 Urine Glucose (UA) >=1000 mg/dL (NEGATIVE) H 02/18/22 12:44 Urine Ketones NEGATIVE mg/dL (NEGATIVE) 02/18/22 12:44 Urine Occult Blood MODERATE (NEGATIVE) H 02/18/22 12:44 Urine Nitrite NEGATIVE (NEGATIVE) 02/18/22 12:44 Urine Bilirubin NEGATIVE (NEGATIVE) 02/18/22 12:44 Urine Urobilinogen 1 (NORMAL) E.U./dL (NORMAL) 02/18/22 12:44 Ur Leukocyte Esterase TRACE (NEGATIVE) H 02/18/22 12:44 Urine RBC 11-25 /HPF (0-5) H 02/18/22 12:44 Urine WBC 11-25 /HPF (0-5) H 02/18/22 12:44 Ur Squamous Epith Cells MANY Squamous (<= Few) H 02/18/22 12:44 Urine Bacteria Few /HPF (None Seen) 02/18/22 12:44 Urine Yeast PRESENT 02/17/22 17:12 Urine Culture Comments NOT INDICATED 02/18/22 12:44 Urine HCG, Qual NEGATIVE 02/17/22 17:12 Nasal Adenovirus (PCR) NOT DETECTED 02/17/22 17:16 Nasal B. parapertussis DNA (PCR) NOT DETECTED 02/17/22 17:16 Nasal Coronavir 229E PCR NOT DETECTED 02/17/22 17:16 Nasal Coronavir HKU1 PCR NOT DETECTED 02/17/22 17:16 Nasal Coronavir NL63 PCR NOT DETECTED 02/17/22 17:16 Nasal Coronavir OC43 PCR NOT DETECTED 02/17/22 17:16 Nasal Enterovir/Rhinovir PCR NOT DETECTED 02/17/22 17:16 Nasal Influenza B PCR NOT DETECTED 02/17/22 17:16 Nasal Influenza A PCR NOT DETECTED 02/17/22 17:16 Nasal Parainfluen 1 PCR NOT DETECTED 02/17/22 17:16 Nasal Parainfluen 2 PCR NOT DETECTED 02/17/22 17:16 Nasal Parainfluen 3 PCR NOT DETECTED 02/17/22 17:16 Nasal Parainfluen 4 PCR NOT DETECTED 02/17/22 17:16 Nasal RSV (PCR) NOT DETECTED 02/17/22 17:16 Nasal Screen MRSA (PCR) NEGATIVE (NEGATIVE) 02/18/22 12:44 Nasal B.pertussis DNA PCR NOT DETECTED 02/17/22 17:16 Nasal C.pneumoniae (PCR) NOT DETECTED 02/17/22 17:16 Prosper Human Metapneumo PCR NOT DETECTED 02/17/22 17:16 Nasal M.pneumoniae (PCR) NOT DETECTED 02/17/22 17:16 Nasal SARS-CoV-2 (PCR) NOT DETECTED 02/17/22 17:16 Serum Ketones NEGATIVE (NEGATIVE) 02/19/22 08:15
[2022-02-20] MEDS ORDERED: carvediloL 3.125 MG TABLET PO ONE (13:00)
[2022-02-20] MEDS: lisinopriL 20 MG TABLET PO SCH (13:12)
[2022-02-20] MEDS: carvediloL 12.5 MG TABLET PO SCH (20:21)
[2022-02-20] MEDS: ATORVASTATIN 10 MG TABLET PO SCH (20:21)
[2022-02-20] MEDS: INSULIN GLARGINE-YFGN 300 UNIT/3 ML PEN SUBQ SCH (22:19)
[2022-02-20] MEDS ORDERED: FLUCONAZOLE 100 MG TABLET PO STA (23:07)
[2022-02-21] MEDS: SODIUM CHLORIDE FLUSH 0.9% 10 ML SYRINGE IVP SCH ×3 (01:00→16:28)
[2022-02-21 06:56] LABS: CALCIUM 9.2 mg/dL (8.5-10.3); CREATININE 0.7 mg/dL (0.4-1.0); POTASSIUM 3.8 mmol/L (3.5-5.0)
[2022-02-21 07:12] LABS: EOSINOPHILS # (AUTO) 0.1 10^3/uL (0.0-0.7); EOSINOPHILS % (AUTO) 1.9 %; HCT - HEMATOCRIT 31.3 % (37.0-47.0); HGB - HEMOGLOBIN 9.9 g/dL (12.0-16.0); MEAN CORPUSCULAR HEMOGLOBIN 25.3 pg (27.0-31.0); MEAN CORPUSCULAR HGB CONC 31.6 g/dL (32.0-36.0); MEAN CORPUSCULAR VOLUME 80.1 fL (81.0-99.0); MEAN PLATELET VOLUME 10.9 fL (7.9-10.8); MONOCYTES # (AUTO) 0.6 10^3/uL (0.0-1.0); MONOCYTES % (AUTO) 13.3 %; NEUTROPHILS # (AUTO) 2.5 10^3/uL (1.5-6.6); NEUTROPHILS % (AUTO) 59.3 %; PLT - PLATELET COUNT 184 10^3/uL (130-450); RED BLOOD COUNT 3.91 10^6/uL (4.20-5.40); RED CELL DISTRIBUTION WIDTH 13.6 % (12.0-15.0); WHITE BLOOD COUNT 4.1 x10^3/uL (4.8-10.8)
[2022-02-21 07:19] LABS: SLIDE REVIEW? Indicated
[2022-02-21 07:35] LABS: RBC MORPHOLOGY (MULTIPLE) 2+ ANISOCYTOSIS (NORMAL)
[2022-02-21] MEDS: INSULIN LISPRO 300 UNIT/3 ML PEN SUBQ SCH ×4 (08:12→20:43)
[2022-02-21] MEDS: ISOSORBIDE MONONITRATE ER 30 MG TABLET PO SCH (08:15)
[2022-02-21] MEDS: carvediloL 12.5 MG TABLET PO SCH ×2 (08:16→20:41)
[2022-02-21] MEDS: ASPIRIN EC 81 MG TABLET PO SCH (08:16)
[2022-02-21] MEDS: SERTRALINE 50 MG TABLET PO SCH (08:17)
[2022-02-21] MEDS: lisinopriL 20 MG TABLET PO SCH (08:17)
[2022-02-21] MEDS: polyethylene glycoL 3350 17 GM PACKET PO SCH (08:18)
[2022-02-21] MEDS: ENOXAPARIN 40 MG/0.4 ML SYRINGE SUBQ SCH (08:18)
[2022-02-21] MEDS: cefTRIAXone 2 GM in SODIUM CHLORIDE 0.9% MINIBAG 100 ML IV SCH (08:19)
[2022-02-21] MEDS: ONDANSETRON 4 MG/2 ML VIAL IVP PRN (08:31)
[2022-02-21] MEDS ORDERED: SERTRALINE 50 MG TABLET PO SCH (09:00)
[2022-02-21] MEDS ORDERED: lisinopriL 20 MG TABLET PO SCH (09:00)
--- NOTE | 2022-02-21 09:21 | XRAY Report ---
PROCEDURE: Chest 1 View X-Ray INDICATIONS: cough TECHNIQUE: One view of the chest was acquired. COMPARISON: Chest x-ray, 02/18/2022. FINDINGS: Surgical changes and devices: There is a right IJ central line with the tip projecting to the area o f atrial caval junction. Lungs and pleura: No pleural effusions or pneumothorax. Lungs are clear. Mediastinum: Mediastinal contours appear normal. Heart size is normal. Bones and chest wall: No suspicious bony lesions. Overlying soft tissues appear unremarkable. IMPRESSION: 1. The right IJ central line tip projecting to the area of atrial caval junction. 2. No acute cardiopulmonary disease. Reviewed by: Tati Matthews MD on 02/21/2022 9:20 AM PST Approved by: Tati Matthews MD on 02/21/2022 9:20 AM [facility] Station ID: [id number]
[2022-02-21] MEDS: amLODIPine 5 MG TABLET PO SCH (10:29)
--- NOTE | 2022-02-21 10:32 | PROVIDER PROGRESS NOTE ---
Assessment/Plan - Problem List (1) Nausea Assessment/Plan: She again complained of nausea today, needed Zofran IV. This is despite not being in DKA and not being on oral antibiotics yet Being a diabetic, this may be a sign of diabetic gastroparesis Plan: Will order Reglan scheduled before meals and at bedtime today. Will try not to use Zofran and see if the Reglan helps her She may need to be discharged on new Reglan (2) Bacteremia due to Klebsiella pneumoniae Assessment/Plan: She is on ceftriaxone that was started for what the telemedicine admitting doctor thought was an FUO. The source of fever was unknown: Chest x-ray did not have any infiltrates and s he even had a CTA. Urinalysis at adm was not a clean-catch, had many squamous cells. I reordered the U/A which was done 02/18 and it again had many squamous cells, not a good sample for culture Lactate level has been normal. We redrew blood cultures when she had a fever spike, those are neg to date Will also redraw bld cx today, 48 hrs after her last fever, to assure her blood cultures are negative on treatment. Plan: We are continuing with ceftriaxone, as this Klebsiella is sens to it WEill change to oral antibx tomorrow, assure she does not get N/V from it. Then she may be ready for DCh. A total 10 day course of antibx is planned. (3) DM type 2 Impression: She is on insulin at home. Her A1c came back at 11.6, indicating very poor control. For most of the month of January 2022, she was ill, she had a viral syndrome for 1 week early in the Dec then presented with this bacteremia at the end of the month, which would raise glu levels. Plan: Now that her N/V had resolved, we have advanced her to a diabetic diet. Continue with sliding scale insulin coverage, Lantus insulin at p.m. which can be adjusted upward and a hypoglycemia protocol (4) HTN Impression: Prior to admission she was on carvedilol, lisinopril, isosorbide and HCTZ for blood pressure control. These all had to be stopped when she was hypotensive and in the ICU. The meds have been added back on one by one and at lower doses. We were measuring orthostatic vital signs to assure she is not dehydrated. Today her blood pressure is reaching 220 systolic Plan: Will resume her usual BP med doses today Will stop orthostatic vital sign checks Will order PT and OT evaluation to start today (5) Chronic systolic heart failure Impression: The aunt confirmed and the ER was aware that the patient has an LVEF of 43%. This was from a recent work-up done several months ago in [place], the aunt told me. We have no Echos here on her Yesterday she said she was starting to get a cough. A chest x-ray was done today to eval for volume overload, given her EF of 43% and needing alot of iv fluids while in DKA, and that CXR shows no active pulmonary disease Plan: Follow I's and O's We are resuming her usual doses of cardiac medications today, now that she is not hypotensive (6) CAD (coronary artery disease) Impression: As per history provided to me by the aunt at bedside. She has a 70% coronary stenosis, but the aunt does not know in which coronary artery, and it was not stented. Plan: Continue with her antiplatelet and statin medications (7) PVD (peripheral vascular disease) Impression: Carotid disease is present and it is significant at about 70% on the R. It was not stented for fear of causing downstream embolization, per the aunt. Plan: Continue with her antiplatelet and cholesterol medication (8) Morbid obesity BMI 45-49 As per Hx. Plan: Continue as per diabetic management (9) DKA, type 2 Impression: Resolved. Pt was moved out of ICU She has had diabetes for 10 years, unknown how long insulin dependent she is. The patient reports having A1c done about a month ago and it was about 8. Her A1c here came back at 11.6, indicating very poor control. Possibly her viral syndrome of cough, fever and nausea vomiting threw her into DKA. Given the bacteremia, possibly the source of the Klebsiella bacteremia (I suspect a UTI), threw her into the DKA Plan: Insulin drip was changed to Lantus and sliding scale insulin. We started a diabetic diet advancing from clear liquids since she was no longer nauseated. Continue to treat bacteremia which is likely the cause of going into DKA (10) Hypotension Impression: Rersolved On 02/18 the patient had a temporary blood pressure drop when all her morning me ds for blood pressure were administered , at their usual doses. The doses of those BP meds were then decreased. When she again had a fever spike, she dropped her pressure to below 80 systolic. The telemedicine doctor was called and started her on norepinephrine drip and because of concern for an acute MS also started empiric heparin drip. Her troponins were flat and she has ruled out for an MS. Her blood pressures were 140-160 syst and the norepinephrine was weaned to off in the ICU Plan: We restarted her meds at lower BP med doses (11) Chest pain Impression: On 02/18 she told her RN about right-sided chest pain radiating to the right lateral rib cage and to the back. Sublingual nitroglycerin was tried, it had minimal effect, the discomfort decreased on its own over an hour. This was when she was having worsening vomiting On 02/19, I was able to get detailed information from her: when she needed the coronary angio, this was preceded by chest pain and it was in the right side. She does take sublingual nitroglycerin as needed at home and says that it has nearly no effect. She gets "better relief from tizanidine muscle relaxant". Because she has a history of CAD, troponins were recycled, and she had no MS. A repeat EKG was done and it had no change from admission EKG Plan: I told her, and the aunt and cousin at bedside that day, that she needs to go to her [employer] to determine if her right-sided chest pain is angina or muscle spasms. We restarted her Tizanidine (12) History of spontaneous intraventricular hemorrhage due to cerebral aneurysm Impression: This happened 10 years ago and she was treated with coil, it is visible on imaging. The aunt gave me details, at bedside today. After this event it left her with fear of crowds. She has now gotten over that (13) Metabolic encephalopathy Impression: Resolved. She appeared fatigued and was groggy at admission The aunt was at her bedside and told me she always gets confused when she has a fever or is sick overall Plan: Continue to treat the underlying cause of her fevers and the infection - Current Meds Current Meds: Current Medications Generic Name Dose Route Start Last Admin Trade Name Freq PRN Reason Stop Dose Admin Acetaminophen 650 mg 02/19/22 20:47 02/20/22 20:21 Acetaminophen 325 Mg Tablet PO 650 mg Q4HR PRN Administration Pain or Fever > 38C (100.4F) Aspirin 81 mg 02/18/22 13:08 02/21/22 08:16 Aspirin Ec 81 Mg Tablet PO 81 mg DAILY RENA Administration Atorvastatin Calcium 10 mg 02/18/22 21:00 02/20/22 20:21 Atorvastatin 10 Mg Tablet PO 10 mg QPM RENA Administration Carvedilol 12.5 mg 02/20/22 21:00 02/21/22 08:16 Carvedilol 12.5 Mg Tablet PO 12.5 mg BID RENA Administration Enoxaparin Sodium 40 mg 02/19/22 09:00 02/21/22 08:18 Enoxaparin 40 Mg/0.4 Ml Syringe SUBQ 40 mg DAILY RENA Administration Ceftriaxone Sodium 2 gm/ 100 mls @ 200 mls/hr 02/18/22 09:00 02/21/22 09:26 Sodium Chloride IV Infused DAILY RENA Infusion Insulin Glargine-yfgn 10 unit 02/19/22 21:00 02/20/22 22:19 Insulin Glargine-Yfgn 300 Unit/3 Ml Pen SUBQ 10 unit QPM RENA Administration Insulin Human Lispro 1 - 5 unit 02/19/22 12:00 02/21/22 08:12 Insulin Lispro 300 Unit/3 Ml Pen SUBQ 3 unit 0800,1200,1700,2100 RENA Administration Protocol Isosorbide Mononitrate 60 mg 02/21/22 09:00 02/21/22 08:15 Isosorbide Mononitrate Er 30 Mg Tablet PO 60 mg DAILY RENA Administration Nitroglycerin 0.4 mg 02/18/22 13:08 02/18/22 15:40 Nitroglycerin Sl 0.4 Mg Tablet SL 0.4 mg Q5MIN PRN Administration Chest Pain Polyethylene Glycol 17 gm 02/21/22 09:00 02/21/22 08:18 Polyethylene Glycol 3350 17 Gm Packet PO 17 gm DAILY RENA Administration Prochlorperazine Edisylate 10 mg 02/18/22 17:27 02/19/22 04:58 Prochlorperazine 10 Mg/2 Ml Vial IVP 10 mg Q6HR PRN Administration Nausea / Vomiting Sodium Chloride 10 ml 02/17/22 23:37 02/19/22 04:59 Sodium Chloride Flush 0.9% 10 Ml Syringe IVP 10 ml PRN PRN Administration NEEDED PER PROVIDER ORDERS Sodium Chloride 10 ml 02/18/22 01:00 02/21/22 08:19 Sodium Chloride Flush 0.9% 10 Ml Syringe IVP 10 ml 0100,0900,1700 RENA Administration - Lab Result Fish Bone Diagrams: 02/21/22 06:35 02/21/22 06:35 - Additional Planning My Orders: My Active Orders 02/20/22 12:45 Miscellaenous Nursing Order [RC] QSHIFT 02/20/22 12:50 tiZANidine [Zanaflex] 2 mg PO Q8H PRN 02/20/22 18:15 CULTURE, BLOOD #1 [RM] Routine 02/20/22 18:50 CULTURE, BLOOD #2 [RM] Routine 02/20/22 21:00 carvediloL [Coreg] 12.5 mg PO BID 02/21/22 09:00 Isosorbide Mononitrate ER [Imdur] 60 mg PO DAILY amLODIPine [Norvasc] 10 mg PO DAILY polyethylene glycoL 3350 [Miralax] 17 gm PO DAILY 02/21/22 11:00 Metoclopramide [Reglan] 10 mg PO ACHS lisinopriL [Zestril] 20 mg PO ONCE ONE 02/22/22 05:00 BMP - BASIC METABOLIC PANEL [CHEM] DAILYLAB CBC - COMP BLD CT W/AUTO DIFF [HEME] DAILYLAB 02/22/22 09:00 Sertraline [Zoloft] 100 mg PO DAILY lisinopriL [Zestril] 40 mg PO DAILY 02/23/22 05:00 BMP - BASIC METABOLIC PANEL [CHEM] DAILYLAB Subjective - Subjective Patient Reports: Nausea (before breakfast, she had nausea, no vomiting, needed Zofran), Other (Aunt at the bedside tells me that the patient now eats small meals, gets full quickly, and burps a lot) Objective Vital Signs: Vital Signs - 24 hr 02/20/22 02/20/22 02/20/22 13:00 15:41 21:00 Temperature 37.4 C 36.8 C 37.2 C Heart Rate [ 81 72 78 Brachial] Heart Rate [ Monitoring electrodes] Respiratory 16 20 18 Rate Blood Pressure [Left Brachial artery] Blood Pressure 151/77 H [Right Brachial artery] Blood Pressure 147/69 H 149/87 H [Right Radial artery] O2 Saturation 93 99 92 If not protocol 2 : Oxygen Flow, liters/minute 02/20/22 02/21/22 02/21/22 23:55 05:39 08:02 Temperature 36.6 C 36.9 C 37.3 C Heart Rate [ 74 88 Brachial] Heart Rate [ 84 Monitoring electrodes] Respiratory 18 18 18 Rate Blood Pressure 149/65 H [Left Brachial artery] Blood Pressure [Right Brachial artery] Blood Pressure 179/72 H 177/81 H [Right Radial artery] O2 Saturation 91 L 92 92 If not protocol : Oxygen Flow, liters/minute Oxygen O2 Source Room air I&O (Last 24 Hrs): Intake and Output Totals x24h 02/19/22 02/20/22 02/21/22 23:59 23:59 23:59 Intake Total 3433.174 6915.222 690 Output Total 550 650 Balance 2883.174 6265.222 690 General: Alert, Oriented x3, Other (Morbidly obese) HEENT: Mucous membr. moist/pink, Other (cheeks flushed) Neck: Supple, Other (Cannot evaluate JVP due to morbid obese) Neuro: Alert, Other (Has numbness/tingling sensation on the dorsum of her feet) Cardiovascular: Regular rate, No murmurs Respiratory: No respiratory distress, Breath sounds nml Abdomen: Normal bowel sounds, Soft, Other (Obese with pannus) Genitourinary: Other (Red rash in inguinal folds) Extremities: No clubbing, No edema - Results Results: Laboratory Results WBC 4.1 x10^3/uL (4.8-10.8) L 02/21/22 06:35 RBC 3.91 10^6/uL (4.20-5.40) L 02/21/22 06:35 Hgb 9.9 g/dL (12.0-16.0) L 02/21/22 06:35 Hct 31.3 % (37.0-47.0) L 02/21/22 06:35 MCV 80.1 fL (81.0-99.0) L 02/21/22 06:35 MCH 25.3 pg (27.0-31.0) L 02/21/22 06:35 MCHC 31.6 g/dL (32.0-36.0) L 02/21/22 06:35 RDW 13.6 % (12.0-15.0) 02/21/22 06:35 Plt Count 184 10^3/uL (130-450) 02/21/22 06:35 MPV 10.9 fL (7.9-10.8) H 02/21/22 06:35 Neut # (Auto) 2.5 10^3/uL (1.5-6.6) 02/21/22 06:35 Lymph # (Auto) 1.0 10^3/uL (1.5-3.5) L 02/21/22 06:35 Allen # (Auto) 0.6 10^3/uL (0.0-1.0) 02/21/22 06:35 Eos # (Auto) 0.1 10^3/uL (0.0-0.7) 02/21/22 06:35 Baso # (Auto) 0.0 10^3/uL (0.0-0.1) 02/21/22 06:35 Absolute Nucleated RBC 0.00 x10^3/uL 02/21/22 06:35 Nucleated RBC % 0.0 /100WBC 02/21/22 06:35 Manual Slide Review Indicated 02/21/22 06:35 RBC Morph Micro Appear 2+ ANISOCYTOSIS (NORMAL) 02/21/22 06:35 APTT 43.4 secs (24.9-33.3) H 02/19/22 09:00 VBG pH 7.375 (7.31-7.41) 02/18/22 09:39 VBG pCO2 41.6 mmHg (41-51) 02/18/22 09:39 VBG pO2 57.9 mmHg (25-47) H 02/18/22 09:39 VBG HCO3 23.8 mmol/L (23-28) 02/18/22 09:39 VBG Total CO2 25.1 mmol/L (24-29) 02/18/22 09:39 VBG O2 Saturation 91.6 % (60-80) H 02/18/22 09:39 VBG Base Excess -1.4 mmol/L (-2 - +2) 02/18/22 09:39 Sodium 134 mmol/L (135-145) L 02/21/22 06:35 Potassium 3.8 mmol/L (3.5-5.0) 02/21/22 06:35 Chloride 100 mmol/L (101-111) L 02/21/22 06:35 Carbon Dioxide 28 mmol/L (21-32) 02/21/22 06:35 Anion Gap 6.0 (6-13) 02/21/22 06:35 BUN 10 mg/dL (6-20) 02/21/22 06:35 Creatinine 0.7 mg/dL (0.4-1.0) 02/21/22 06:35 Estimated GFR (MDRD) 90 (>89) 02/21/22 06:35 Glucose 266 mg/dL (70-100) H 02/21/22 06:35 Estimat Average Glucose 286 mg/dL (70-100) H 02/18/22 08:34 Hemoglobin A1c % 11.6 % (4.27-6.07) H 02/18/22 08:34 Lactic Acid 1.5 mmol/L (0.5-2.2) 02/18/22 08:38 Calcium 9.2 mg/dL (8.5-10.3) 02/21/22 06:35 Phosphorus 2.5 mg/dL (2.5-4.6) 02/20/22 05:19 Magnesium 1.8 mg/dL (1.7-2.8) 02/20/22 05:19 Total Bilirubin 2.1 mg/dL (0.2-1.0) H 02/17/22 17:25 AST 17 IU/L (10-42) 02/17/22 17:25 ALT 19 IU/L (10-60) 02/17/22 17:25 Alkaline Phosphatase 94 IU/L (42-121) 02/17/22 17:25 Troponin I High Sens 33.1 ng/L (2.3-14.8) H* 02/19/22 03:35 Total Protein 7.8 g/dL (6.7-8.2) 02/17/22 17:25 Albumin 3.6 g/dL (3.2-5.5) 02/17/22 17:25 Globulin 4.2 g/dL (2.1-4.2) 02/17/22 17:25 Albumin/Globulin Ratio 0.9 (1.0-2.2) L 02/17/22 17:25 Urine Color YELLOW 02/18/22 12:44 Urine Clarity SL. CLOUDY (CLEAR) 02/18/22 12:44 Urine pH 6.0 PH (5.0-7.5) 02/18/22 12:44 Ur Specific [place] 1.010 (1.002-1.030) 02/18/22 12:44 Urine Protein NEGATIVE mg/dL (NEGATIVE) 02/18/22 12:44 Urine Glucose (UA) >=1000 mg/dL (NEGATIVE) H 02/18/22 12:44 Urine Ketones NEGATIVE mg/dL (NEGATIVE) 02/18/22 12:44 Urine Occult Blood MODERATE (NEGATIVE) H 02/18/22 12:44 Urine Nitrite NEGATIVE (NEGATIVE) 02/18/22 12:44 Urine Bilirubin NEGATIVE (NEGATIVE) 02/18/22 12:44 Urine Urobilinogen 1 (NORMAL) E.U./dL (NORMAL) 02/18/22 12:44 Ur Leukocyte Esterase TRACE (NEGATIVE) H 02/18/22 12:44 Urine RBC 11-25 /HPF (0-5) H 02/18/22 12:44 Urine WBC 11-25 /HPF (0-5) H 02/18/22 12:44 Ur Squamous Epith Cells MANY Squamous (<= Few) H 02/18/22 12:44 Urine Bacteria Few /HPF (None Seen) 02/18/22 12:44 Urine Yeast PRESENT 02/17/22 17:12 Urine Culture Comments NOT INDICATED 02/18/22 12:44 Urine HCG, Qual NEGATIVE 02/17/22 17:12 Nasal Adenovirus (PCR) NOT DETECTED 02/17/22 17:16 Nasal B. parapertussis DNA (PCR) NOT DETECTED 02/17/22 17:16 Nasal Coronavir 229E PCR NOT DETECTED 02/17/22 17:16 Nasal Coronavir HKU1 PCR NOT DETECTED 02/17/22 17:16 Nasal Coronavir NL63 PCR NOT DETECTED 02/17/22 17:16 Nasal Coronavir OC43 PCR NOT DETECTED 02/17/22 17:16 Nasal Enterovir/Rhinovir PCR NOT DETECTED 02/17/22 17:16 Nasal Influenza B PCR NOT DETECTED 02/17/22 17:16 Nasal Influenza A PCR NOT DETECTED 02/17/22 17:16 Nasal Parainfluen 1 PCR NOT DETECTED 02/17/22 17:16 Nasal Parainfluen 2 PCR NOT DETECTED 02/17/22 17:16 Nasal Parainfluen 3 PCR NOT DETECTED 02/17/22 17:16 Nasal Parainfluen 4 PCR NOT DETECTED 02/17/22 17:16 Nasal RSV (PCR) NOT DETECTED 02/17/22 17:16 Nasal Screen MRSA (PCR) NEGATIVE (NEGATIVE) 02/18/22 12:44 Nasal B.pertussis DNA PCR NOT DETECTED 02/17/22 17:16 Nasal C.pneumoniae (PCR) NOT DETECTED 02/17/22 17:16 Prosper Human Metapneumo PCR NOT DETECTED 02/17/22 17:16 Nasal M.pneumoniae (PCR) NOT DETECTED 02/17/22 17:16 Nasal SARS-CoV-2 (PCR) NOT DETECTED 02/17/22 17:16 Serum Ketones NEGATIVE (NEGATIVE) 02/19/22 08:15
[2022-02-21] MEDS: METOCLOPRAMIDE 10 MG TABLET PO SCH ×3 (10:43→20:40)
[2022-02-21] MEDS ORDERED: lisinopriL 20 MG TABLET PO ONE (11:00)
[2022-02-21] MEDS ORDERED: SERTRALINE 50 MG TABLET PO ONE (11:00)
[2022-02-21] MEDS: SODIUM CHLORIDE FLUSH 0.9% 10 ML SYRINGE IVP PRN (16:28)
[2022-02-21] MEDS: NYSTATIN POWDER 15 GM TOP SCH ×2 (20:40→21:16)
[2022-02-21] MEDS: ATORVASTATIN 10 MG TABLET PO SCH (20:40)
[2022-02-21] MEDS ORDERED: INSULIN GLARGINE-YFGN 300 UNIT/3 ML PEN SUBQ SCH (21:00)
[2022-02-22] MEDS: ZINC OXIDE 20% OINT 30 GM TUBE TOP PRN ×2 (00:13→06:18)
[2022-02-22] MEDS: SODIUM CHLORIDE FLUSH 0.9% 10 ML SYRINGE IVP SCH ×2 (00:21→08:18)
[2022-02-22] MEDS: SODIUM CHLORIDE FLUSH 0.9% 10 ML SYRINGE IVP PRN (00:21)
[2022-02-22] MEDS: METOCLOPRAMIDE 10 MG TABLET PO SCH ×2 (06:16→12:04)
[2022-02-22 06:25] LABS: BASOPHILS % (AUTO) 0.7 %; EOSINOPHILS % (AUTO) 2.3 %; HCT - HEMATOCRIT 28.9 % (37.0-47.0); HGB - HEMOGLOBIN 9.1 g/dL (12.0-16.0); LYMPHOCYTES % (AUTO) 33.8 %; MEAN CORPUSCULAR HEMOGLOBIN 25.3 pg (27.0-31.0); MEAN CORPUSCULAR HGB CONC 31.5 g/dL (32.0-36.0); MEAN CORPUSCULAR VOLUME 80.3 fL (81.0-99.0); MEAN PLATELET VOLUME 10.6 fL (7.9-10.8); MONOCYTES % (AUTO) 13.2 %; NEUTROPHILS % (AUTO) 49.5 %; PLT - PLATELET COUNT 220 10^3/uL (130-450); RED CELL DISTRIBUTION WIDTH 13.5 % (12.0-15.0)
[2022-02-22 06:27] LABS: ABNORMAL LYMPHS % (MANUAL) 0 %; BAND NEUTROPHILS % (MANUAL) 0 %
[2022-02-22 06:29] LABS: CALCIUM 9.6 mg/dL (8.5-10.3); CREATININE 0.7 mg/dL (0.4-1.0); POTASSIUM 3.7 mmol/L (3.5-5.0)
[2022-02-22 06:39] LABS: BASOPHILS # (MANUAL) 0.1 10^3/uL (0-0.1); BASOPHILS % (MANUAL) 1 %; EOSINOPHILS # (MANUAL) 0.2 10^3/uL (0-0.7); LYMPHOCYTES # (MANUAL) 1.9 10^3/uL (1.5-3.5); LYMPHOCYTES % (MANUAL) 31 %; MONOCYTES # (MANUAL) 0.4 10^3/uL (0.0-1.0); NEUTROPHILS # (MANUAL) 3.5 10^3/uL (1.5-6.6)
[2022-02-22 06:40] LABS: DIFFERENTIAL COMMENT MANUAL DIFFERENTIAL; PLATELET ESTIMATE, MANUAL NORMAL (130-450,000) (NORMAL); PLATELET MORPHOLOGY NORMAL APPEARANCE (NORMAL); RBC MORPHOLOGY (MULTIPLE) 1+ HYPOCHROMASIA (NORMAL); WBC MORPHOLOGY (MULTIPLE) NORMAL APPEARANCE (NORMAL)
[2022-02-22] MEDS: INSULIN LISPRO 300 UNIT/3 ML PEN SUBQ SCH ×2 (08:11→12:02)
[2022-02-22] MEDS: polyethylene glycoL 3350 17 GM PACKET PO SCH (08:12)
[2022-02-22] MEDS: amLODIPine 5 MG TABLET PO SCH (08:14)
[2022-02-22] MEDS: ISOSORBIDE MONONITRATE ER 30 MG TABLET PO SCH (08:16)
[2022-02-22] MEDS: ASPIRIN EC 81 MG TABLET PO SCH (08:17)
[2022-02-22] MEDS: carvediloL 12.5 MG TABLET PO SCH (08:17)
[2022-02-22] MEDS: cefTRIAXone 2 GM in SODIUM CHLORIDE 0.9% MINIBAG 100 ML IV SCH (08:17)
[2022-02-22] MEDS: ENOXAPARIN 40 MG/0.4 ML SYRINGE SUBQ SCH (08:19)
[2022-02-22] MEDS: NYSTATIN POWDER 15 GM TOP SCH (08:20)
[2022-02-22] MEDS ORDERED: SERTRALINE 50 MG TABLET PO SCH (09:00)
[2022-02-22] MEDS ORDERED: lisinopriL 20 MG TABLET PO SCH (09:00)
--- NOTE | 2022-02-22 13:40 | Discharge Plan ---
Discharge Plan Problem Reviewed?: Yes Disposition: Home, Self Care Condition: Stable Prescriptions: Cefdinir 300 mg PO BID #12 cap Nystatin [Nystop] 1 applic TOP BID #15 gm Metoclopramide [Reglan] 10 mg PO ACHS PRN #20 tab PRN Reason: Nausea / Vomiting Diet: Diabetic Activity Restrictions: No Restrictions Shower Restrictions: No Driving Restrictions: No Weight Bearing: Full Weight Instruction Topics: Log Blood Sugar, Diabetes Carbs, Blood Sugar Check Additional Instructions or Follow Up instructions: Return to the ER for recurring fever, inability to hold down food or fluids, shortnes of breath. A nodule was seen on your thyroid during your Chest CT. You will need to see your PCP upon your return home to get a thyroid ultrasound done. Follow-up with your PCP in 1 week. No Smoking: If you smoke, Please STOP! Call for help.
[2022-02-22 17:25] VITALS: BP 164/65
--- NOTE | 2022-02-23 19:14 | DISCHARGE SUMMARY ---
Discharge Summary Admit Date: 02/17/22 Discharge Date: 02/22/22 Condition at Discharge: Stable Discharge Disposition: 01 Home, Self Care - DIAGNOSES Admission Diagnoses: AMS URI N/V Hyperglycemia/ DM type 2 on Insulin Carotid Stenosis HTN HFrEF with EF 43% Anxiety Discharge Diagnoses with Status of Each Condition: DKA in type 2 DM2, resolved Klebsiella pneumoniae bacteremia, improving Nausea and vomiting, resolved Atypical chest pain, resolved Pseudohyponatremia, resolved Metabolic encephalopathy, resolved Chronic systolic CHF, stable CAD, chronic, stable PVD, chronic, stable hx of spontaneous IVH d/t cerebral aneurysm Incidental thyroid nodule--will need a thyroid US to evaluate further - HPI History of Present Illness: Per H&P: History difficult to obtain from pt d/t pt's confusion. History obtained from staff, chart. 47 yo F with PMH of DM type 2 on Insulin, Carotid Stenosis, HTN, HFrEF with EF 43% with c/o 2 week h/o URI symptoms and 1 day h/o AMS, N/V. 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 Then, Pt began to feel ill on Jan with Cough, chest congestion, CP with cough, Subjective F/C, weakness, myalgias improved with Ibuprofen. No increased SOB. Relatives got sick after her. She was not eating well. She was using her Insulin. Then, yesterday, she began to have N/V with multiple emeses, non-bloody, No abdo pain, No dysuria, no BM change. In the ER, SpO2 80s on RA initially, now 90s. T 39.6C. Confusion improved with IVF. WBC 15.6, CXR: NAD, BC pending Pt was given Regular Insulin 10 U, Rocephin in the ER. - HOSPITAL COURSE Hospital Course: 47 yo female w/DM2, CAD, PAD, chronic systolic CHF, Class 3 obesity, and prior brain aneurysmal rupture resulting in IVH admitted w/acute illness, initially thought to be respiratory, acute metabolic encephalopathy and DKA. She was found to have klebsiella pneumoniae bacteremia. She was placed on Rocephin IV. She was transferred to the ICU for treatment of DKA. She gradually improved. Follow-up blood cultures were repeated and negative. By the date of discharge, her nausea and vomiting had resolved. Her encephalopathy resolved. She was tolerating po intake w/o difficulty. She will continue oral antibiotics for an additional 6 days. She is encouraged to f/u w/her PCP upon return to [place], as she was on [facility] for the holidays only. - ALLERGIES Allergies/Adverse Reactions: Allergies Allergy/AdvReac Type Severity Reaction Status Date / Time No Known Drug Allergies Allergy Verified 12/16/12 03:32 - MEDICATIONS Home Medications: Ambulatory Orders Medication Instructions Recorded Confirmed No Blood Product! 1 each TOP DAILY 09/26/13 02/18/22 Amlodipine Besylate 10 mg PO DAILY 02/25/14 02/18/22 Insulin Glargine [Lantus Solostar] 60 unit SQ HS 02/25/14 02/18/22 Insulin Lispro [Humalog] 10 unit SQ TIDWM 02/25/14 02/18/22 Metformin HCl 1,000 mg PO BID 02/25/14 02/18/22 lisinopriL [Lisinopril] 40 mg PO DAILY 02/25/14 02/18/22 Aspirin Chewable [St Scot 81 mg PO DAILY 02/18/22 02/18/22 Aspirin] Atorvastatin Calcium 80 mg PO HS 02/18/22 02/18/22 Carvedilol [Coreg] 12.5 mg PO Q12H 02/18/22 02/18/22 Empagliflozin [Jardiance] 10 mg PO DAILY 02/18/22 02/18/22 Isosorbide Mononitrate [Isosorbide 60 mg PO DAILY 02/18/22 02/18/22 Mononitrate ER] Nitroglycerin [Nitrostat] 1 tab SL Q5MIN PRN 02/18/22 02/18/22 Sertraline HCl 100 mg PO DAILY 02/18/22 02/18/22 Tizanidine HCl 2 mg PO Q8H PRN 02/18/22 02/18/22 hydroCHLOROthiazide [Hydrodiuril] 25 mg PO DAILY 02/18/22 02/18/22 Cefdinir 300 mg PO BID #12 cap 02/22/22 Metoclopramide [Reglan] 10 mg PO ACHS PRN #20 tab 02/22/22 Nystatin [Nystop] 1 applic TOP BID #15 gm 02/22/22 - PHYSICAL EXAM AT DISCHARGE General Appearance: positive: No acute distress, Alert Eyes Bilateral: positive: Normal inspection Neck: positive: Nml inspection Respiratory: positive: No respiratory distress, Breath sounds nml Cardiovascular: positive: Regular rate & rhythm, No murmur, No gallop Abdomen: positive: Non-tender, Nml bowel sounds, No distention, Other (Body habitus limits exam) Skin: positive: No rash, Warm, Dry Extremities: positive: No pedal edema - LABS Result Diagrams: 02/22/22 06:00 02/22/22 06:00
== END 2022-02-22 16:30 | disposition home or self-care (01) | DRG 637 ==
LOC: EDSEX → ED 16:45 → MS2 23:37 → OBSVTOIN 02-18 08:41 → ICU 02-18 10:33 → MS2 02-19 14:06
PROVIDERS: ADMIT Internal Medicine; ATTEND Family Medicine
PROC: 02H633Z Insertion of Infusion Device into Right Atrium, Percutaneous Approach (ICD-10-PCS; principal; 2022-02-18)
DX: E11.10 Type 2 diabetes mellitus with ketoacidosis without coma (principal); G93.41 Metabolic encephalopathy; R78.81 Bacteremia; I50.22 Chronic systolic (congestive) heart failure; Z68.43 Body mass index [BMI] 50.0-59.9, adult; Z79.4 Long term (current) use of insulin; Z79.84 Long term (current) use of oral hypoglycemic drugs; E11.65 Type 2 diabetes mellitus with hyperglycemia; E11.51 Type 2 diabetes mellitus with diabetic peripheral angiopathy without gangrene; B96.1 Klebsiella pneumoniae [K. pneumoniae] as the cause of diseases classified elsewhere; R07.89 Other chest pain; I11.0 Hypertensive heart disease with heart failure; I25.10 Atherosclerotic heart disease of native coronary artery without angina pectoris; E66.01 Morbid (severe) obesity due to excess calories; E04.1 Nontoxic single thyroid nodule; Z86.79 Personal history of other diseases of the circulatory system; J06.9 Acute upper respiratory infection, unspecified; R41.82 Altered mental status, unspecified; I65.29 Occlusion and stenosis of unspecified carotid artery; F41.9 Anxiety disorder, unspecified; R50.81 Fever presenting with conditions classified elsewhere; I95.9 Hypotension, unspecified; B36.9 Superficial mycosis, unspecified; Z20.822 Contact with and (suspected) exposure to COVID-19
CPT/HCPCS: 36415; 70450; 71045; 71275; 80048; 80053; 81001; 81025; 82009; 82803; 83036; 83605; 83735; 84100; 84132; 84484; 85025; 85027; 85730; 87040; 87077; 87150; 87181; 87633; 93005; 96365; 96372; 96375; 97161; 97165; 99281; 99285; A9270; G0378; J0131; J1650; J1815; Q0162; Q9967; 82947; 87086

== ENCOUNTER 2022-05-20 15:52 | Outpatient (CLI) | payer MEDICAID ==
--- NOTE | 2022-05-20 16:55 | Ultrasound Report ---
PROCEDURE: Head or Neck Soft Tissue INDICATIONS: LEFT THYROID NODULE TECHNIQUE: Real-time scanning was performed of the thyroid gland, with image documentation. COMPARISON: None FINDINGS: Right: Thyroid lobe measures 4.9 x 1.7 x 1.7 cm, and is homogeneous in echotexture. Left: Thyroid lobe measures 5.1 x 3.0 x 3.2 cm, and is homogenous in echotexture. Isthmus: 5 mm thick. Nodule number: One Location: Left midpole Size: 4.1 x 2.8 x 3.6 cm. Composition: Solid (2 points). Echogenicity: Hyperechoic (1 point). Shape: wider than tall. Margins: Smooth (0 points). Echogenic foci: None (0 points). Total points: 3 ACR TI-RADS category: Mildly suspicious (3 points). Nodule number: Two Location: Right mid gland Size: 0.4 x 0.3 cm. Composition: Solid (2 points). Echogenicity: Hypoechoic (2 points). Shape: wider than tall. Margins: Smooth (0 points). Echogenic foci: None (0 points). Total points: 4 ACR TI-RADS category: Moderately suspicious (4-6 points). Nodule number: Three Location: Right lower pole Size: 0.6 x 0.5 x 0.5 cm. Composition: Solid (2 points). Echogenicity: Hyperechoic (1 point). Shape: wider than tall. Margins: Smooth (0 points). Echogenic foci: Macrocalcification (1 point). Total points: 4 ACR TI-RADS category: Moderately suspicious (4-6 points). Nodule number: Four Location: Business Size: 0.4 x 0.4 x 0.4 cm. Composition: Solid (2 points). Echogenicity: Hypoechoic (2 points). Shape: wider than tall. Margins: Smooth (0 points). Echogenic foci: None (0 points). Total points: 4 ACR TI-RADS category: Moderately suspicious (4-6 points). IMPRESSION: Mild to moderate bilateral thyroid nodules. Nodule number 1 meets size criteria for biop sy. ACR TI-RADS definitions and recommendations: TI-RADS 1 (benign): 0 points. FNA not needed. TI-RADS 2 (not suspicious): 2 points. FNA not needed. TI-RADS 3 (mildly suspicious): 3 points. "FNA if 2.5 cm or larger, follow up if 1.5 cm or larger (at 1, 3, and 5 years). TI-RADS 4 (moderately suspicious): 4-6 points. "FNA if 1.5 cm or larger, follow up if 1 cm or larger (at 1, 2, 3, and 5 years). TI-RADS 5 (highly suspicious): 7 points or more. "FNA if 1 cm or larger, follow up if 0.5 cm or larger (every year for 5 years). Reviewed by: Salomon Rosario on 05/20/2022 4:53 PM PDT Approved by: Salomon Rosario on 05/20/2022 4:53 PM PDT Station ID: [id number]
== END 2022-05-20 15:53 | disposition home or self-care (01) ==
LOC: DI 15:52
PROVIDERS: ATTEND Nurse Practitioner Family
DX: E04.2 Nontoxic multinodular goiter (principal)

== ENCOUNTER 2022-06-23 09:30 | Outpatient (CLI) | payer MEDICAID ==
[~2022-06-23 09:30] MED LIST: LIDOCAINE-MPF 1% 5 ML VIAL ONE
[2022-06-23] MEDS ORDERED: LIDOCAINE-MPF 1% 5 ML VIAL TD ONE (10:39)
--- NOTE | 2022-06-23 16:10 | Ultrasound Report ---
PROCEDURE: FNA Bx w/US Gdn 1st Les INDICATIONS: THYROID NODULE TECHNIQUE: The indications, alternatives, benefits, risks, and complications of the procedure were explained to the patient. Written informed consent was obtained and placed in the chart. The area of interest wa s examined sonographically and a site was chosen for ultrasound guided percutaneous sampling. The sk in was prepared and draped in the usual fashion, and anesthetized with 1% lidocaine infiltrated from the skin down to the lesion. Multiple passes were then performed, with contents emptied into an appr [facility] pathology specimen container. A bandage was applied to the area of access at completion of t he study. COMPARISON: None. FINDINGS: Location(s) of lesion(s) sampled: Left inferior thyroid nodule [place]: 25 gauge hypodermic needles. Number of passes: 6 Medications: 1% lidocaine for local anaesthesia. Complications: None. IMPRESSION: Successful ultrasound-guided left inferior thyroid nodule fine needle aspiration, with cytology resul ts pending. Reviewed by: Jalen Sanabria MD on 06/23/2022 4:09 PM PDT Approved by: Jalen Sanabria MD on 06/23/2022 4:09 PM PDT Station ID: [id number]
== END 2022-06-23 09:31 | disposition home or self-care (01) ==
LOC: DI 09:30
PROVIDERS: ATTEND Family Medicine
DX: E04.1 Nontoxic single thyroid nodule (principal)
CPT/HCPCS: 10005

== ENCOUNTER 2022-07-06 20:52 | Emergency (ER) | payer MEDICAID ==
[2022-07-06 21:15] LABS: BILIRUBIN,URINE NEGATIVE (NEGATIVE); GLUCOSE, URINE (UA) >=1000 mg/dL (NEGATIVE); KETONES,URINE (UA) NEGATIVE (NEGATIVE); LEUKOCYTE ESTERASE, URINE NEGATIVE (NEGATIVE); NITRITE,URINE NEGATIVE (NEGATIVE); OCCULT BLOOD,URINE NEGATIVE (NEGATIVE); PROTEIN,URINE NEGATIVE (NEGATIVE); UROBILINOGEN,URINE 0.2 (NORMAL) E.U./dL (NORMAL)
[2022-07-06 21:16] LABS: CLARITY,URINE CLEAR (CLEAR)
[2022-07-06 21:19] LABS: BASOPHILS # (AUTO) 0.1 10^3/uL (0.0-0.1); BASOPHILS % (AUTO) 0.5 %; EOSINOPHILS # (AUTO) 0.2 10^3/uL (0.0-0.7); EOSINOPHILS % (AUTO) 1.3 %; HCT - HEMATOCRIT 39.4 % (37.0-47.0); HGB - HEMOGLOBIN 12.2 g/dL (12.0-16.0); LYMPHOCYTES # (AUTO) 2.3 10^3/uL (1.5-3.5); LYMPHOCYTES % (AUTO) 20.1 %; MEAN CORPUSCULAR HEMOGLOBIN 23.8 pg (27.0-31.0); MONOCYTES # (AUTO) 0.7 10^3/uL (0.0-1.0); MONOCYTES % (AUTO) 6.1 %; NEUTROPHILS # (AUTO) 8.3 10^3/uL (1.5-6.6); NEUTROPHILS % (AUTO) 71.6 %; PLT - PLATELET COUNT 298 10^3/uL (130-450); RED BLOOD COUNT 5.12 10^6/uL (4.20-5.40); RED CELL DISTRIBUTION WIDTH 14.6 % (12.0-15.0); WHITE BLOOD COUNT 11.6 x10^3/uL (4.8-10.8)
[2022-07-06 21:32] LABS: ALBUMIN 3.6 g/dL (3.2-5.5); BILIRUBIN,TOTAL 0.7 mg/dL (0.2-1.0); CALCIUM 10.8 mg/dL (8.5-10.3); CREATININE 0.9 mg/dL (0.4-1.0); TOTAL PROTEIN 7.3 g/dL (6.7-8.2)
[2022-07-06] MEDS ORDERED: oxyCODONE/ACET 5/325 Prepack 4 PO STA (22:40)
[2022-07-06] MEDS ORDERED: oxyCODONE 5 MG TABLET PO STA (22:40)
--- NOTE | 2022-07-06 22:44 | ED Physician Documentation ---
History of Present Illness - Stated complaint Stated Complaint: L SIDE/BACK PX - Chief complaint Chief Complaint: Back Pain - History obtained from History obtained from: Patient, Family (aunt) - Additonal information Additional information: 47-year-old woman with history of chronic back pain presents with left back pain radiating to the left upper quadrant for the past 4 days with associated interm ittent nausea. Patient denies fevers, diarrhea. She had a normal bowel movement today. denies urinary sx. Review of Systems Constitutional: denies: Fever Cardiac: denies: Chest pain / pressure Respiratory: denies: Dyspnea GI: reports: Abdominal Pain, Nausea. denies: Vomiting, Constipation, Diarrhea : denies: Dysuria, Frequency, Hematuria Musculoskeletal: reports: Back pain PD PAST MEDICAL HISTORY - Past Medical History Past Medical History: Yes Cardiovascular: Hypertension Respiratory: None Neuro: CVA Endocrine/Autoimmune: Type 2 diabetes GI: None : None HEENT: Other Psych: None Musculoskeletal: None - Past Surgical History Past Surgical History: Yes Neuro: Other - Present Medications Home Medications: Ambulatory Orders Medication Instructions Recorded Confirmed No Blood Product! 1 each TOP DAILY 09/26/13 02/18/22 Amlodipine Besylate 10 mg PO DAILY 02/25/14 02/18/22 Insulin Glargine [Lantus Solostar] 60 unit SQ HS 02/25/14 02/18/22 Insulin Lispro [Humalog] 10 unit SQ TIDWM 02/25/14 02/18/22 Metformin HCl 1,000 mg PO BID 02/25/14 02/18/22 lisinopriL [Lisinopril] 40 mg PO DAILY 02/25/14 02/18/22 Aspirin Chewable [St Scot 81 mg PO DAILY 02/18/22 02/18/22 Aspirin] Atorvastatin Calcium 80 mg PO HS 02/18/22 02/18/22 Carvedilol [Coreg] 12.5 mg PO Q12H 02/18/22 02/18/22 Empagliflozin [Jardiance] 10 mg PO DAILY 02/18/22 02/18/22 Isosorbide Mononitrate [Isosorbide 60 mg PO DAILY 02/18/22 02/18/22 Mononitrate ER] Nitroglycerin [Nitrostat] 1 tab SL Q5MIN PRN 02/18/22 02/18/22 Sertraline HCl 100 mg PO DAILY 02/18/22 02/18/22 Tizanidine HCl 2 mg PO Q8H PRN 02/18/22 02/18/22 hydroCHLOROthiazide [Hydrodiuril] 25 mg PO DAILY 02/18/22 02/18/22 Cefdinir 300 mg PO BID #12 cap 02/22/22 Metoclopramide [Reglan] 10 mg PO ACHS PRN #20 tab 02/22/22 Nystatin [Nystop] 1 applic TOP BID #15 gm 02/22/22 - Allergies Allergies/Adverse Reactions: Allergies Allergy/AdvReac Type Severity Reaction Status Date / Time No Known Drug Allergies Allergy Verified 12/16/12 03:32 - Social History Does the pt smoke?: No Smoking Status: Never smoker Does the pt drink ETOH?: No Does the pt have substance abuse?: No - Immunizations Immunizations are current?: No Immunizations: TDAP >10years/unknown - POLST Patient has POLST: No PD ED PE NORMAL - Vitals Vital signs reviewed: Yes - General General: Alert and oriented X 3, No acute distress, Well developed/nourished - HEENT HEENT: Atraumatic, PERRL, EOMI - Neck Neck: Supple, no meningeal sign - Abdomen Abdomen: Non tender, Non distended - Back Back: No CVA TTP, No spinal TTP, Other (lower back discomfort to palpation) - Derm Derm: Normal color, Warm and dry Results - Vitals Vitals: Vital Signs - 24 hr 07/06/22 20:58 Temperature 36.4 C L Heart Rate 66 Respiratory 22 Rate Blood Pressure 183/78 H O2 Saturation 97 Oxygen O2 Source Room air - Labs Labs: Laboratory Tests 07/06/22 07/06/22 07/06/22 21:06 21:15 21:15 WBC 11.6 H RBC 5.12 Hgb 12.2 Hct 39.4 MCV 77.0 L MCH 23.8 L MCHC 31.0 L RDW 14.6 Plt Count 298 MPV 10.0 Neut # (Auto) 8.3 H Lymph # (Auto) 2.3 [place] # (Auto) 0.7 Eos # (Auto) 0.2 Baso # (Auto) 0.1 Absolute Nucleated RBC 0.00 Nucleated RBC % 0.0 Sodium 136 Potassium 4.0 Chloride 101 Carbon Dioxide 27 Anion Gap 8.0 BUN 20 Creatinine 0.9 Estimated GFR (MDRD) 67 L Glucose 304 H Calcium 10.8 H Total Bilirubin 0.7 AST 17 ALT 21 Alkaline Phosphatase 92 Total Protein 7.3 Albumin 3.6 Globulin 3.7 Albumin/Globulin Ratio 1.0 Lipase 40 Urine Color YELLOW Urine Clarity CLEAR Urine pH 6.0 Ur Specific [place] 1.020 Urine Protein NEGATIVE Urine Glucose (UA) >=1000 H Urine Ketones NEGATIVE Urine Occult Blood NEGATIVE Urine Nitrite NEGATIVE Urine Bilirubin NEGATIVE Urine Urobilinogen 0.2 (NORMAL) Ur Leukocyte Esterase NEGATIVE Ur Microscopic Review NOT INDICATED Urine Culture Comments NOT INDICATED PD Medical Decision Making - ED course ED course: 47-year-old woman presents with left back pain radiating to the front for the past 4 days, positional in nature, reproducible with palpation. Lab work including CBC and abdominal panel as well as urinalysis was ordered. She did have some very mild leukocytosis with white blood cell count of 11.6 and normal urinalysis with the exception of sugar in the urine, reflective of her diabetes. Kidney stones unlikely given no blood in the urine. Bowel obstruction unlikely given she had a normal bowel movement. Most likely cause is musculoskeletal in origin. Pain medication provided and advised her to follow-up with her primary care provider. Return precautions given. Departure - Departure Disposition: 01 Home, Self Care Clinical Impression: Back pain Condition: Stable Instructions: ED Low Back Pain Injury Comments: You were seen in the emergency department for back pain moving to the abdomen. Your labwork and urine testing uncovered no emergent cause for your symptoms. Please follow up with your primary care provider and return to the ED for new or worsening symptoms or other concerns.
[2022-07-06 22:57] VITALS: BP 162/78
== END 2022-07-06 22:56 | disposition home or self-care (01) ==
LOC: ED 20:52
DX: M54.9 Dorsalgia, unspecified (principal); R10.12 Left upper quadrant pain; D72.829 Elevated white blood cell count, unspecified; E11.9 Type 2 diabetes mellitus without complications; I10 Essential (primary) hypertension; Z79.84 Long term (current) use of oral hypoglycemic drugs; Z79.4 Long term (current) use of insulin
CPT/HCPCS: 36415; 80053; 81003; 83690; 85025; 99283; A9270; 81001; 87086

== ENCOUNTER 2022-08-02 09:58 | Outpatient (CLI) | payer MEDICAID ==
[2022-08-02] MEDS ORDERED: LIDOCAINE-MPF 1% 5 ML VIAL TD ONE (11:01)
--- NOTE | 2022-08-02 16:40 | Ultrasound Report ---
PROCEDURE: FNA Bx w/US Gdn 1st Les INDICATIONS: THYROID NODULE TECHNIQUE: The indications, alternatives, benefits, risks, and complications of the procedure were explained to the patient. Written informed consent was obtained and placed in the chart. The area of interest wa s examined sonographically and a site was chosen for ultrasound guided percutaneous sampling. The sk in was prepared and draped in the usual fashion, and anesthetized with 1% lidocaine infiltrated from the skin down to the lesion. Multiple passes were then performed, with contents emptied into an appr [facility] pathology specimen container. A bandage was applied to the area of access at completion of t he study. COMPARISON: 06/23/2022 FINDINGS: Location(s) of lesion(s) sampled: Left inferior [place]: 25 gauge hypodermic needles. Number of passes: 4 Medications: 1% lidocaine for local anaesthesia. Complications: None. IMPRESSION: Successful ultrasound-guided left inferior thyroid nodule fine needle aspiration, with cytology resul ts pending. Reviewed by: Pavel Becerra MD on 08/02/2022 4:39 PM PDT Approved by: Pavel Becerra MD on 08/02/2022 4:39 PM PDT Station ID: [id number]
== END 2022-08-02 09:59 | disposition home or self-care (01) ==
LOC: DI 09:58
PROVIDERS: ATTEND Nurse Practitioner Family
DX: E04.1 Nontoxic single thyroid nodule (principal)
CPT/HCPCS: 10005

== ENCOUNTER 2022-09-02 14:47 | Emergency (ER) | payer MEDICAID ==
[2022-09-02 15:56] LABS: BASOPHILS # (AUTO) 0.1 10^3/uL (0.0-0.1); BASOPHILS % (AUTO) 0.5 %; EOSINOPHILS # (AUTO) 0.5 10^3/uL (0.0-0.7); EOSINOPHILS % (AUTO) 4.1 %; HCT - HEMATOCRIT 45.5 % (37.0-47.0); HGB - HEMOGLOBIN 14.7 g/dL (12.0-16.0); LYMPHOCYTES # (AUTO) 2.8 10^3/uL (1.5-3.5); LYMPHOCYTES % (AUTO) 25.7 %; MEAN CORPUSCULAR HEMOGLOBIN 24.8 pg (27.0-31.0); MEAN CORPUSCULAR HGB CONC 32.3 g/dL (32.0-36.0); MEAN CORPUSCULAR VOLUME 76.7 fL (81.0-99.0); MEAN PLATELET VOLUME 10.6 fL (7.9-10.8); MONOCYTES # (AUTO) 0.5 10^3/uL (0.0-1.0); NEUTROPHILS % (AUTO) 64.2 %; PLT - PLATELET COUNT 324 10^3/uL (130-450); RED BLOOD COUNT 5.93 10^6/uL (4.20-5.40); RED CELL DISTRIBUTION WIDTH 14.3 % (12.0-15.0); WHITE BLOOD COUNT 10.9 x10^3/uL (4.8-10.8)
[2022-09-02 16:05] LABS: ALBUMIN 3.5 g/dL (3.2-5.5); ALBUMIN/GLOBULIN RATIO 0.9 (1.0-2.2); BILIRUBIN,TOTAL 0.5 mg/dL (0.2-1.0); CALCIUM 11.4 mg/dL (8.5-10.3); CREATININE 1.1 mg/dL (0.4-1.0); POTASSIUM 3.9 mmol/L (3.5-5.0); TOTAL PROTEIN 7.3 g/dL (6.7-8.2)
--- NOTE | 2022-09-02 16:27 | XRAY Report ---
PROCEDURE: Chest 1 View X-Ray INDICATIONS: Chest pain TECHNIQUE: One view of the chest was acquired. COMPARISON: None. FINDINGS: Surgical changes and devices: None. Lungs and pleura: No pleural effusions or pneumothorax. Lungs are clear. Mediastinum: Mediastinal contours appear normal. Heart size is normal. Bones and chest wall: No suspicious bony lesions. Overlying soft tissues appear unremarkable. IMPRESSION: No acute cardiopulmonary process. Reviewed by: Salomon Rosario on 09/02/2022 4:25 PM PDT Approved by: Salomon Rosario on 09/02/2022 4:25 PM PDT Station ID: [id number]
--- NOTE | 2022-09-02 17:37 | ED Physician Documentation ---
PD HPI DYSPNEA - Stated complaint Stated Complaint: SOA/DIZZY - Chief complaint Chief Complaint: General - History obtained from History obtained from: Patient - History of Present Illness Timing - onset: How many weeks ago (1) Timing - onset during: Light activity Timing - duration: Weeks (1) Timing - details: Gradual onset, Still present, Waxing and waning Inciting event(s): No: URI Improved by: Rest Worsened by: Exertion Associated symptoms: No: Fever, Cough, Wheezing, Bilateral edema Similar symptoms before: Diagnosis (CHF related to cardiomyopathy with EF 45% over a year ago. Had heart cath that showed no blockages.) Recently seen: Not recently seen Review of Systems Constitutional: denies: Fever Nose: denies: Rhinorrhea / runny nose, Congestion Throat: denies: Sore throat Cardiac: denies: Chest pain / pressure Respiratory: denies: Dyspnea, Cough GI: reports: Nausea, Other (less appetite). denies: Vomiting, Diarrhea Neurologic: reports: Near syncope (several times past week with lightheaded with sitting up or walking with feeling of near syncope and foggy thought process, dim vision. No focal weaknesses. Has some feeling of lightheaded with head movement but no vertigo itself.). denies: Focal weakness, Numbness, Confused, Headache PD PAST MEDICAL HISTORY - Past Medical History Cardiovascular: Congestive heart failure (due to cardiomyopathy and EF 45% (? cause, pt not sure if viral/HTN,etc, but had heart cath without stenoses nor interventions). Has local [employer] Dr. Burdick. ), Hypertension Respiratory: None Neuro: Other (prior brain aneurysm with coiling successfully. This was several years ago and has been good.) Endocrine/Autoimmune: Type 2 diabetes GI: None : None HEENT: Other Psych: None Musculoskeletal: None - Past Surgical History Past Surgical History: Yes Neuro: Other - Present Medications Home Medications: Ambulatory Orders Medication Instructions Recorded Confirmed No Blood Product! 1 each TOP DAILY 09/26/13 02/18/22 Amlodipine Besylate 10 mg PO DAILY 02/25/14 02/18/22 Insulin Glargine [Lantus Solostar] 60 unit SQ HS 02/25/14 02/18/22 Insulin Lispro [Humalog] 10 unit SQ TIDWM 02/25/14 02/18/22 Metformin HCl 1,000 mg PO BID 02/25/14 02/18/22 lisinopriL [Lisinopril] 40 mg PO DAILY 02/25/14 02/18/22 Aspirin Chewable [St Scot 81 mg PO DAILY 02/18/22 02/18/22 Aspirin] Atorvastatin Calcium 80 mg PO HS 02/18/22 02/18/22 Carvedilol [Coreg] 12.5 mg PO Q12H 02/18/22 02/18/22 Empagliflozin [Jardiance] 10 mg PO DAILY 02/18/22 02/18/22 Isosorbide Mononitrate [Isosorbide 60 mg PO DAILY 02/18/22 02/18/22 Mononitrate ER] Nitroglycerin [Nitrostat] 1 tab SL Q5MIN PRN 02/18/22 02/18/22 Sertraline HCl 100 mg PO DAILY 02/18/22 02/18/22 Tizanidine HCl 2 mg PO Q8H PRN 02/18/22 02/18/22 hydroCHLOROthiazide [Hydrodiuril] 25 mg PO DAILY 02/18/22 02/18/22 Cefdinir 300 mg PO BID #12 cap 02/22/22 Metoclopramide [Reglan] 10 mg PO ACHS PRN #20 tab 02/22/22 Nystatin [Nystop] 1 applic TOP BID #15 gm 02/22/22 - Allergies Allergies/Adverse Reactions: Allergies Allergy/AdvReac Type Severity Reaction Status Date / Time No Known Drug Allergies Allergy Verified 09/02/22 15:26 - Social History Does the pt smoke?: No Smoking Status: Never smoker Does the pt drink ETOH?: No Does the pt have substance abuse?: No - Immunizations Immunizations are current?: No Immunizations: TDAP >10years/unknown - POLST Patient has POLST: No PD ED PE NORMAL - Vitals Vital signs reviewed: Yes - General General: Alert and oriented X 3, No acute distress, Well developed/nourished - HEENT HEENT: Pharynx benign - Neck Neck: Supple, no meningeal sign, No adenopathy - Cardiac Cardiac: RRR, No murmur - Respiratory Respiratory: Clear bilaterally - Abdomen Abdomen: Normal bowel sounds, Soft, Non tender - Back Back: No CVA TTP - Derm Derm: Normal color, Warm and dry - Extremities Extremities: No edema, No calf tenderness / cord - Neuro Neuro: Alert and oriented X 3, marbleizer 2-12 intact, No motor deficit, No sensory deficit, Normal speech Results - Vitals Vitals: Vital Signs - 24 hr 09/02/22 09/02/22 09/02/22 15:21 19:19 20:54 Temperature 36.0 C L Heart Rate 79 91 Heart Rate [ 62 Sitting] Heart Rate [ 76 Standing] Heart Rate [ 60 Supine] Respiratory 16 16 Rate Blood Pressure 126/67 177/89 H Blood Pressure 159/87 H [Sitting] Blood Pressure 108/63 [Standing] Blood Pressure 162/69 H [Supine] O2 Saturation 96 100 Oxygen O2 Source Room air - EKG (time done) 1530 EKG releavant findings:: EKG personally interpreted by author of this note. Relevant findings are: Rate: Rate (enter#) (74) Rhythm: NSR [place]: Normal Intervals: Normal NC QRS: LVH (with nonspecific ST/T changes c/w it. ) Ischemia: Normal ST segments. No: ST elevation c/w ischemia, ST depression - Labs Labs: Laboratory Tests 09/02/22 09/02/22 09/02/22 15:46 15:46 15:46 WBC 10.9 H RBC 5.93 H Hgb 14.7 Hct 45.5 MCV 76.7 L MCH 24.8 L MCHC 32.3 RDW 14.3 Plt Count 324 MPV 10.6 Neut # (Auto) 7.0 H Lymph # (Auto) 2.8 [place] # (Auto) 0.5 Eos # (Auto) 0.5 Baso # (Auto) 0.1 Absolute Nucleated RBC 0.00 Nucleated RBC % 0.0 Sodium 136 Potassium 3.9 Chloride 102 Carbon Dioxide 26 Anion Gap 8.0 BUN 31 H Creatinine 1.1 H Estimated GFR (MDRD) 53 L Glucose 351 H Calcium 11.4 H Magnesium Total Bilirubin 0.5 AST 14 ALT 18 Alkaline Phosphatase 109 Troponin I High Sens 14.9 H* Total Protein 7.3 Albumin 3.5 Globulin 3.8 Albumin/Globulin Ratio 0.9 L Lipase 38 TSH 09/02/22 09/02/22 09/02/22 18:14 18:14 18:14 WBC RBC Hgb Hct MCV MCH MCHC RDW Plt Count MPV Neut # (Auto) Lymph # (Auto) [place] # (Auto) Eos # (Auto) Baso # (Auto) Absolute Nucleated RBC Nucleated RBC % Sodium Potassium Chloride Carbon Dioxide Anion Gap BUN Creatinine Estimated GFR (MDRD) Glucose Calcium Magnesium 1.9 Total Bilirubin AST ALT Alkaline Phosphatase Troponin I High Sens 13.5 Total Protein Albumin Globulin Albumin/Globulin Ratio Lipase TSH 2.77 - Rads (name of study) chest xray Relevant Findings:: Prelim report reviewed, EMP independent interpretation of test (no vascular congestion), See rad report PD Medical Decision Making - ED course Complexity details: reviewed results, considered differential, d/w patient ED course: The patient is having about a week or slightly more of a general feeling of lightheadedness, general weakness, shortness of breath and some intermittent pain in her shoulder and back. She states she had had similar symptoms over a year ago with work-up showing an unspecified cardiomyopathy with an ejection fraction of 43%. She states she is not sure what the wet process miller head assistant thought the reason was. She did have a heart catheterization and was told there are "small vessels in the lower part of the heart but no stenoses or stents needed. She did have evaluation of her head as well and reportedly has a 70% blockage at a higher portion of the carotid artery. No intervention but is on statins. Several years ago she had had a brain aneurysm stent coiled by neurosurgery and without any problems on follow-up. She had been recommended to follow-up with neurosurgery after moving here with presumably follow-up imaging at yearly or so intervals. She moved here from [place] in January and has a primary care but had not yet gotten a neurosurgeon. She does have a wet process miller head assistant locally Dr. Antonia Leone. The patient and her family's concerns are for heart process or congestive heart failure based on her symptoms. There is lightheadedness component but no vertigo. Her mother is worried about cerebrovascular insufficiency and they are worried about worsening of her carotid stenoses beyond the known 70%. The patient's chest x-ray is clear without any signs of vascular congestion. Her troponin is essentially normal at 14 with a repeat 2 hours later at 13. There is no peripheral edema. I do not hear any obscured heart sounds. No JVD. I do not have an indication of congestive failure. We are not able to get an echo at this time though do not think is emergently necessary. She is not anemic. Electrolytes are good. Renal function is creatinine 1.1 with out prior baseline. At this point I do not get a sense of any cardiovascular acute process such as myocarditis, [place], CHF. Not clear the cause of her dyspnea and lightheadedness. It will need further work-up. Addressing their are concern for cerebrovascular, we can do a CT/CTA to reevaluate that. That is still pending. Departure - Departure Disposition: 01 Home, Self Care Clinical Impression: Episodic lightheadedness Dyspnea Qualifiers: Dyspnea type: dyspnea on exertion Qualified Code(s): R06.09 - Other forms of dyspnea Condition: Stable Record reviewed to determine appropriate education?: Yes Instructions: ED Dyspnea Shortness of Breath Comments: The cause of your symptoms is not apparent at this time. There were no concerning nor diagnostic findings on tonight's test, including the blood tests, CT scans, chest x-ray, EKG. Follow-up with your primary care provider, next available appointment, for reevaluation. Further testing might be needed even if the symptoms resolve. Discharge Date/Time: 09/02/22 22:39
[2022-09-02] MEDS ORDERED: SODIUM CHLORIDE 0.9% 1,000 ML IV STA (18:25)
[2022-09-02] MEDS ORDERED: iohexoL-300 100 ML VIAL ONE (19:04)
[2022-09-02] MEDS ORDERED: iohexoL-300 100 ML VIAL IVP ONE (19:30)
--- NOTE | 2022-09-02 19:57 | CT Report ---
PROCEDURE: ANGIO HEAD W/WO INDICATIONS: weak, lightheaded episodic; prior aneurysm coiling CONTRAST: 100 ml omni 300 TECHNIQUE: Precontrast 4.5 mm thick angled axial sections acquired from the foramen magnum to the vertex. Afte r the administration of intravenous contrast, 1 mm thick sections acquired through the [place] is. Postcontrast 4.5 mm thick sections then re-acquired from the foramen magnum to the vertex. 3-di mensional sznkqvo-hdypbwiah-jxqmjtcmef (MIP) and/or volume rendering reformats were acquired of the c entral intracranial vasculature. For radiation dose reduction, the following was used: automated ex posure control, adjustment of mA and/or kV according to patient size. COMPARISON: CT head dated 02/17/2022 and 09/26/2013 FINDINGS: Image quality: Excellent. Anterior circulation: Intracranial internal carotid arteries are normal in size and flow. The flow within the paired anterior cerebral arteries is normal and symmetric. The flow within the middle cer ebral arteries is normal and symmetric. The anterior communicating artery is seen. No aneurysms are seen. Posterior circulation: Visualized portions of the vertebral arteries demonstrate normal caliber, and join to form a normal appearing basilar artery. Flow within the posterior cerebral arteries is norm al and symmetric. No aneurysms are seen. CSF spaces: Ventricles are normal in size and shape. Basal cisterns are patent. No extra-axial flu id collections. Brain: Prior aneurysm clip is again seen in the region of anterior communicating artery. No midline shift. No intracranial bleeds or masses. [place] matter interface appears intact. No area of abn ormal intracranial enhancement. Skull and face: Calvarium and facial bones appear intact, without suspicious lesions. Sinuses: Mucosal thickening in bilateral maxillary sinuses are seen. Bilateral mastoid air cells are well aerated. IMPRESSION: 1. Prior aneurysm coiling in the region of anterior communicating artery. No CT evidence of acute int racranial abnormalities. No area of abnormal intracranial enhancement. 2. No hemodynamically significant stenosis or aneurysm is seen in the intracanalicular circulation. 3. Bilateral maxillary sinusitis. Reviewed by: Eder Rosario MD on 09/02/2022 7:55 PM PDT Approved by: Eder Rosario MD on 09/02/2022 7:55 PM PDT Station ID: [id number]
--- NOTE | 2022-09-02 19:58 | CT Report ---
PROCEDURE: ANGIO NECK W INDICATIONS: weak, lightheaded episodic; prior aneurysm coiling CONTRAST: 100 ml omni 300 TECHNIQUE: After the administration of intravenous contrast, 1.5 mm axial sections acquired from the aortic arch to the [place] of [place]. Coronal 3-D maximum intensity projection (MIP) and/or volume rendering ref ormats were then performed. For radiation dose reduction, the following was used: automated exposur e control, adjustment of mA and/or kV according to patient size. COMPARISON: None. FINDINGS: Image quality: Excellent. Carotid system: The great vessels demonstrate a conventional anatomy as they arise from the aortic a rch. The origins of the common carotid arteries appear patent. The common carotid arteries demonstr ate normal calibers and courses. The bifurcation regions appear normal bilaterally. The internal ca rotid arteries demonstrate normal caliber and course. Posterior circulation: The origins of the vertebral arteries appear patent. The more superior porti ons of the vertebral arteries demonstrate normal course and caliber. They join to form a normal appe aring basilar artery. Soft tissues: Visualized neck soft tissues demonstrate no suspicious abnormalities. Enlarged left th yroid lobe with heterogeneous enhancement is seen. Bones: No suspicious bony lesions. Visualized cervical spine appears normally aligned. IMPRESSION: No hemodynamically significant stenosis or aneurysm is seen in bilateral neck arteries. Enlarged left thyroid lobe with heterogeneous thyroid parenchymal enhancement, please correlate with prior fine needle aspiration findings. The estimate of stenosis included in the report of the imaging study was calculated using the NASCET method CLINICAL RECOMMENDATION STATEMENTS: In patients <35 years with an ITN detected on CT, MRI, or extrathyroidal ultrasound, the Committee re commends further evaluation with dedicated thyroid ultrasound if the nodule is "e1 cm and has no susp icious imaging features, and if the patient has normal life expectancy. In patients "e35 years with an ITN detected on CT, MRI, or extrathyroidal ultrasound, the Committee r ecommends further evaluation with dedicated thyroid ultrasound if the nodule is "e1.5 cm and has no s uspicious imaging features, and if the patient has normal life expectancy. (ACR, 2014) Reviewed by: Edre Rosario MD on 09/02/2022 7:56 PM PDT Approved by: Eder Rosario MD on 09/02/2022 7:56 PM PDT Station ID: [id number]
[2022-09-02 21:01] VITALS: BP 162/69
--- NOTE | 2022-09-05 01:09 | ED Physician Documentation ---
ED Addendum - Addendum Addendum: 09/05/22 01:07 I received sign-out on this patient from Dr. Flynn at end of his shift; please refer to his note for complete H+P. At the time of turn-over of care, results of CTA head and CTA neck were pending. The radiologists interpretation of these studies is no acute findings; incidental note of bilateral maxillary sinusitis. I discussed these results with patient and she expresses reassurance and comfort with d/c home. I briefly d/w patient the findings s/o sinusitis, but she is not having any signs/symptoms of sinusitis and thus this is an incidental finding that does not indicate treatment (such as antibiotics) at this time.
== END 2022-09-02 22:39 | disposition home or self-care (01) ==
LOC: ED 14:47
DX: R42 Dizziness and giddiness (principal); R06.09 Other forms of dyspnea; J32.0 Chronic maxillary sinusitis
CPT/HCPCS: 36415; 70496; 70498; 71045; 80053; 83690; 83735; 84443; 84484; 85025; 93005; 99283; 99284; Q9967

== ENCOUNTER 2022-10-14 16:36 | Outpatient (CLI) | payer MEDICAID ==
[2022-10-14 17:22] LABS: ALBUMIN 3.7 g/dL (3.2-5.5); ALBUMIN/GLOBULIN RATIO 1.1 (1.0-2.2); BILIRUBIN,TOTAL 0.5 mg/dL (0.2-1.0); CALCIUM 10.7 mg/dL (8.5-10.3); CREATININE 0.8 mg/dL (0.6-1.3); POTASSIUM 3.7 mmol/L (3.5-4.5)
--- NOTE | 2022-10-17 12:03 | MRI Report ---
PROCEDURE: MR angiogram brain without contrast INDICATIONS: 47-year-old female with history of coiled aneurysm TECHNIQUE: [id number] 3-D MR angiogram of the brain was obtained without contrast, and 3-dimensio nal maximum intensity projection (MIP) volume rendering was constructed. COMPARISON: CTA 09/02/2022 FINDINGS: Internal carotid arteries: In the proximal left supraclinoid ICA, there is a severe nonocclusive sten osis. No aneurysm. Right ICA unremarkable Anterior cerebral arteries: Single void in the region of the anterior communicating artery is stable. No recurrent or residual aneurysm present. Focal moderate stenosis involving the left pericallosal ROSI and the image 9/160. Middle cerebral arteries: Unremarkable. No significant stenosis. No occlusion. No aneurysm. Posterior cerebral arteries: Unremarkable. No significant stenosis. No occlusion. No aneurysm. Basilar artery: Unremarkable. No significant stenosis. No occlusion. No aneurysm. Vertebral arteries: Unremarkable as visualized. Other: Visualized portions of the brain unremarkable. 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 Left supraclinoid ICA high-grade stenosis without occlusion. Moderate stenosis, left pericallosal ROSI. Reviewed by: Piero Langford MD on 10/17/2022 11:01 AM FARIBA Approved by: Piero Langford MD on 10/17/2022 11:01 AM FARIBA Station ID: [id number]
== END 2022-10-14 16:37 | disposition home or self-care (01) ==
LOC: LAB 16:36 → DI 16:37
PROVIDERS: ATTEND Physician Assistant
DX: Z09 Encounter for follow-up examination after completed treatment for conditions other than malignant neoplasm (principal); Z86.79 Personal history of other diseases of the circulatory system; E11.65 Type 2 diabetes mellitus with hyperglycemia; I65.22 Occlusion and stenosis of left carotid artery; I66.12 Occlusion and stenosis of left anterior cerebral artery
CPT/HCPCS: 36415; 70546; 80053; A9585

== ENCOUNTER 2022-12-27 09:05 | Outpatient (CLI) | payer MEDICAID ==
[2022-12-27 09:19] LABS: BASOPHILS # (AUTO) 0.1 10^3/uL (0.0-0.1); BASOPHILS % (AUTO) 0.9 %; EOSINOPHILS # (AUTO) 0.1 10^3/uL (0.0-0.7); EOSINOPHILS % (AUTO) 2.1 %; HCT - HEMATOCRIT 43.5 % (37.0-47.0); HGB - HEMOGLOBIN 13.7 g/dL (12.0-16.0); LYMPHOCYTES # (AUTO) 1.8 10^3/uL (1.5-3.5); LYMPHOCYTES % (AUTO) 27.1 %; MEAN CORPUSCULAR HGB CONC 31.5 g/dL (32.0-36.0); MEAN CORPUSCULAR VOLUME 79.5 fL (81.0-99.0); MONOCYTES # (AUTO) 0.3 10^3/uL (0.0-1.0); MONOCYTES % (AUTO) 5.2 %; NEUTROPHILS # (AUTO) 4.2 10^3/uL (1.5-6.6); NEUTROPHILS % (AUTO) 64.4 %; PLT - PLATELET COUNT 259 10^3/uL (130-450); RED BLOOD COUNT 5.47 10^6/uL (4.20-5.40); RED CELL DISTRIBUTION WIDTH 12.8 % (12.0-15.0); WHITE BLOOD COUNT 6.5 x10^3/uL (4.8-10.8)
[2022-12-27 09:36] LABS: ALBUMIN 3.8 g/dL (3.2-5.5); ALBUMIN/GLOBULIN RATIO 1.1 (1.0-2.2); ALKALINE PHOSPHATASE 110 IU/L (42-121); ALT ALANINE AMINOTRANSFERASE 13 IU/L (10-60); AST ASPARTATE AMINOTRANSFERASE 10 IU/L (10-42); BILIRUBIN,TOTAL 0.5 mg/dL (0.2-1.0); BUN - BLOOD UREA NITROGEN 17 mg/dL (6-20); CALCIUM 10.2 mg/dL (8.5-10.3); CARBON DIOXIDE - CO2 28 mmol/L (21-32); CHLORIDE 100 mmol/L (101-111); CHOL/HDL RATIO 6.1 (<4.4); CHOLESTEROL 227 mg/dL; CREATININE 0.9 mg/dL (0.6-1.3); GFR - MDRD 67 (>89); GLUCOSE 333 mg/dL (74-104); HDL CHOLESTEROL 37 mg/dL; LDL CHOLESTEROL,CALCULATED 123 mg/dL; LDL/HDL RATIO 3.3 (<4.4); POTASSIUM 3.8 mmol/L (3.5-4.5); SODIUM 133 mmol/L (135-145); TOTAL PROTEIN 7.4 g/dL (6.4-8.9); TRIGLYCERIDES 334 mg/dL (48-352); VLDL CHOLESTEROL 67 mg/dL
[2022-12-27 09:49] LABS: THYROID STIMULATING HORMONE 2.51 uIU/mL (0.34-5.60)
[2022-12-27 10:32] LABS: ESTIMATED AVERAGE GLUCOSE 321 mg/dL (70-100); HEMOGLOBIN A1c% 12.8 % (4.27-6.07)
== END 2022-12-27 09:06 | disposition home or self-care (01) ==
LOC: LAB 09:05
PROVIDERS: ATTEND Physician Assistant
DX: E11.8 Type 2 diabetes mellitus with unspecified complications (principal); E78.5 Hyperlipidemia, unspecified; E83.52 Hypercalcemia; E04.1 Nontoxic single thyroid nodule
CPT/HCPCS: 36415; 80053; 80061; 82306; 83036; 83721; 83970; 84439; 84443; 84481; 85025

== ENCOUNTER 2023-01-25 14:59 | Outpatient (CLI) | payer MEDICAID ==
--- NOTE | 2023-01-25 15:38 | Sleep Patient Instructions ---
Sleep Center Visit Summary - Patient Visit Information Reason for Visit: Initial consult for evaluation of sleep disordered breathing and other sleep issues. - Patient Instructions Instructions Attached: Sleep Study Home Monitor, Sleep Study Additional Instructions: You will be completing a sleep study, either an in-lab polysomnography (PSG) or home sleep study (HST). You will follow-up in the sleep care office after the sleep study is completed to hear the results and talk about therapy, if needed. You will be called by our office staff to schedule this appointment, but you may contact us with any questions. - Clinic Information Contact: [facility] [address] [place] [id number] [email or web address] T: [phone]
--- NOTE | 2023-01-25 15:40 | SLEEP CARE CONSULTATION ---
Information from patient questionnaire entered by Sherrell Lopez. I have reviewed and concur with the information entered by Sherrell Lopez. This document represents the service I personally performed and the decisions made by , Katia Barrow ARNP. History of Present Illness Service Date and Time: 01/25/2023 1459 Reason for Visit: New patient, Previously diagnosed sleep apnea (not on CPAP) Chief Complaint: reports: Excessive daytime sleepiness, Fatigue, Frequent awakenings at night Date of Onset: 1YRS Usual bedtime: 9-11PM Time it takes to fall asleep: 30MIN Snores at night: Yes (sometimes) Observed to quit breathing while asleep: No Sleeps alone due to snoring: No Number of times waking at night: 3 Reasons for waking at night: reports: Bathroom, Other (TURNING OVER). denies: Choking, Snoring, Gasping for air Toss, Turn, or Twitch while sleeping: Yes Recalls having dreams: Yes Usually gets out of bed at: 630AM Feels refreshed in the morning: Yes Morning headache: No Sleepy or fatigued during the day: Yes Ever fallen asleep while driving: No Takes day naps: Yes (sometimes every day for about 1 hour) Dreams during day naps: Yes Prior sleep studies: Yes Year and Where: [facility] [place] [facility] 2021 Additional HPI information: I had the pleasure of seeing SPEEDY OLEARY today regarding the possibility of her having a sleep disorder. Her current complaints are excessive daytime sleepiness, fatigue and frequent night awakenings. She says when she was in the hospital her oxygen levels would drop when sleeping and would put her on oxygen at night. She was referred for a sleep study and was told she had mild sleep apnea. She was waiting for setup for therapy but then moved back to [place] before that could happen. - Parasomnia Symptoms Ever been unable to move upon waking from sleep: No Walks in sleep: No Talks in sleep: No Ever acted out dreams in sleep: Yes (moving hands ) Ever felt weak in the knees when startled or emotional: No Bothered by creepy, crawly, restless sensations in legs: No Problems with memory or concentration: Yes (both) Subjective Initial Merced Sleepiness Scale score: 13 (01/25/23) Past Medical History Past Medical History: reports: Hypertension, Diabetes, Coronary Heart Disease (low ejection fraction), Insulin resistance, Depression, Other (STROKE 09/28/2015) Social History The patient's occupation is a [employer]. Patient is and lives in [place]. Have you smoked in the past 12 months: No Alcohol use: No Caffeine use: Yes Caffeine amount and frequency: 4 DAYS A WEEK Family History Family history of sleep disordered breathing: Yes Family Hx Sleep Apnea: Mother: Snoring, Father: Snoring Allergies and Home Medications Known drug allergies: No Drug allergies reviewed: Yes Home medication list reviewed: Yes (see updated list in EMR) Allergy and home medication list: Allergies No Known Drug Allergies Allergy (Verified 01/24/23 16:11) Review of Systems Weight loss over past 5 years: 30 Cardiovascular: reports: high blood pressure, chest pain Respiratory: reports: shortness of breath Neurological: denies: headaches Psychiatric: reports: depression Ear/Nose/Throat: denies: tonsillectomy, wisdom teeth removed Endocrine: denies: thyroid disease Physical Exam Vital signs obtained and entered by: SHERRELL Eduardo MA Blood Pressure: 205/93 (LEFT) Cuff size: wrist Heart Rate: 66 O2 Saturation: 98 Height: 5 ft 4 in Weight: 289 lb Body Mass Index: 49.6 BMI Classification: Morbidly Obese Neck circumference: 16.5 Mouth and throat: narrow oropharynx Soft palate: long Hard palate: normal Uvula: normal Uvula visualization: 25% Mallampati Class III Tongue: enlarged in size with teeth yang on lateral edges Tonsils: 1+ Neck: normal w/o lymphadenopathy or thyromegaly Heart: regular rate and rhythm Lungs: clear bilaterally Impression and Plan 1. Suspected Obstructive Sleep Apnea-Hypopnea Syndrome, as previously diagnosed and as suggested by a history of loud and irregular snoring, frequent awakening during the night, cognitive impairment, and excessive daytime sleepiness. Narrow oropharynx and obesity are common predisposing factors for obstructive sleep apnea-hypopnea syndrome. I recommend proceeding to polysomnography to confirm the diagnosis and to assess severity. If the patient has significant sleep disordered breathing, a manual CPAP titration study will also be performed to find the optimal treatment pressure. I informed the patient of what the sleep studies involve and after some discussion, obtained agreement to proceed. The pathophysiology of obstructive sleep apnea-hypopnea syndrome was discussed with the patient and health risks of cardiovascular and cerebrovascular disease if not treated. 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 Patient agreed to plan. * Schedule polysomnography. * Avoid long distance driving or driving when feeling sleepy. * Avoid alcohol, sedative and muscle relaxant around bedtime. * Attempt to lose weight. * Review instructions provided by trained office staff on how to prepare for the sleep study. * Return for follow-up after sleep study completed. Counseling Topics: Weight loss health impact Plan: PSG Visit Type: In Office Time Spent with Patient (minutes): 30 Provider Statement: I spent 100% of the Face to Face Visit with the patient with greater than 50% spent counseling the patient and coordination of care.
[2023-01-25 15:42] VITALS: BP 205/93; O2SAT 98
== END 2023-01-25 15:00 | disposition home or self-care (01) ==
LOC: SC 14:59
PROVIDERS: ATTEND Nurse Practitioner Family
DX: G47.33 Obstructive sleep apnea (adult) (pediatric) (principal); E11.9 Type 2 diabetes mellitus without complications; I11.9 Hypertensive heart disease without heart failure; E66.01 Morbid (severe) obesity due to excess calories; Z68.42 Body mass index [BMI] 45.0-49.9, adult
CPT/HCPCS: 99203; 99212

== ENCOUNTER 2023-02-12 19:39 | Outpatient (CLI) | payer MEDICAID | END 2023-02-12 19:40 | disposition home or self-care (01) | LOC: SC 19:39 | PROVIDERS: ATTEND Nurse Practitioner Family | DX: G47.33 Obstructive sleep apnea (adult) (pediatric) (principal) | CPT/HCPCS: 95810 ==

== ENCOUNTER 2023-02-23 10:58 | Outpatient (CLI) | payer MEDICAID ==
--- NOTE | 2023-02-23 11:34 | Sleep Patient Instructions ---
Sleep Center Visit Summary - Patient Visit Information Reason for Visit: Sleep study follow-up - Patient Instructions Instructions Attached: CPAP Additional Instructions: You are being started on CPAP therapy with pressure setting at 4-15 cmH2O. You w ill need to call the sleep care office to set up your follow up once you have your APAP machine and we will schedule a visit to check compliance and response to therapy at that time. You may call the office with any concerns about pressure feeling too low or too much for adjustment, if needed. You should contact DME supplier for any questions or concerns about mask or equipment. Please call office to schedule a follow up appointment in the sleep care office one month after obtaining new device. - Clinic Information Contact: [facility] [address] [place] [address] [email or web address] T: [phone]
--- NOTE | 2023-02-23 11:37 | SLEEP CARE CONSULTATION ---
Information from patient questionnaire entered by Sherrell Lopez. I have reviewed and concur with the information entered by Sherrell Lopez. This document represents the service I personally performed and the decisions made by , Katia Barrow ARNP. History of Present Illness Service Date and Time: 02/23/2023 1058 Initial Sun[place] Sleepiness Scale score: 13 (01/25/23) Current [place]burst Sleepiness Scale score: 12 Additional HPI information: SPEEDY OLEARY returns for follow up and results of the recently performed polysomnography. The sleep study showed severe obstructive sleep apnea with an average AHI of 36 and camryn oxygen saturation of 77%. I explained the pathophysiology behind obstructive sleep apnea. We then spent quite a bit of time discussing different treatment options. For mild obstructive sleep apnea, surgery and oral appliance are alternatives to nasal CPAP therapy but in moderate or severe cases, nasal CPAP is the most effective and reliable treatment. I reviewed the impact of weight changes on sleep apnea and strongly recommended losing weight. After some discussion, the patient opted to go with the nasal CPAP therapy. Nasal autoCPAP set at 4-15 cmH20 will be ordered with rationale explained. A manual titration study will be ordered if unable to find optimal pressure with office adjustments. I explained how CPAP machine works and what to expect when using the machine. Using CPAP every night in order to get used to it was emphasized. Patient advised to put CPAP mask on before getting into bed so as not to fall asleep without CPAP. To assist acclimation to CPAP use, it could also be used for a short time during day while reading or watching TV. The patient was instructed to call the CPAP supplier to discuss any mechanical problem that may occur. If the mask given is uncomfortable or is difficult to keep on through the night even with adjustment, contact the CPAP supplier as many will replace with another mask style if notified before 30 days. If snoring or perceives is not getting enough air or too much air from the machine, notify this office. Patient does not drink alcohol. Patient was cautioned about risks of drowsy driving until sleepiness symptoms resolve. Patient denies drowsy driving. Sleep Study - Results Type of Sleep Study: Polysomnography (COMPLETED 02/12/23) Prior sleep studies: Yes Year and Where: [facility] [place] N[facility] 2021 Polysomnography/Home Sleep Study results: IMPRESSION: The quality of the study is good. The patient had normal sleep efficiency. The sleep architecture was abnormal for sleep fragmentation and reduced amount of time spent in REM and slow wave sleep (N3). Respiratory monitoring showed severe obstructive sleep apnea-hypopnea (AHI = 36.0) associated with frequent arousals, oxyhemoglobin desaturation and moderate hypoxia (camryn oxygen saturation of 77%). The respiratory events occurred independently of sleep stage and body position (supine AHI = 51.3; non-supine = 35.19). Snore was moderate in intensity. There was no significant periodic leg movement of sleep. Cardiac rhythm was normal sinus rhythm without significant arrhythmia. No abnormal behavior (parasomnia) observed during the night. Allergies and Home Medications Known drug allergies: No Drug allergies reviewed: Yes Home medication list reviewed: Yes (no changes) Allergy and home medication list: Allergies No Known Drug Allergies Allergy Review of Systems Review of systems same as previous: Yes (no changes) Physical Exam Vital signs obtained and entered by: DONALD LOZOYA Blood Pressure: 152/101 (pt not taken meds yet) Cuff size: long (left arm) Heart Rate: 72 O2 Saturation: 97 Height: 5 ft 4 in Weight: 288 lb Body Mass Index: 49.4 BMI Classification: Morbidly Obese Impression and Plan 1. Obstructive Sleep Apnea-Hypopnea Syndrome, severe, with lowest oxygen saturation of 77%. Obviously this is the cause of the patients symptoms of unrefreshed sleep, and excessive daytime sleepiness. Positive pressure therapy could benefit hypertension, diabetes, cardiac disease (CHD), insulin resistance and depression. As mentioned above, the patient will be started on nasal autoCPAP therapy with pressure set at 4-15 cmH2O. A manual titration study will be completed if unable to find optimal treatment pressure with office adjustments. Compliance guidelines also reviewed. A copy of compliance guidelines will be given for reference at check out. Because the apnea is more severe supine, I instructed to avoid sleeping supine using pillow positioning until able to start CPAP use. 2. Hypoxemia, moderate, with a camryn oxygen saturation of 77% and 25.9 minutes spent under 90%. The baseline oxygen saturation was normal with an average oxygen saturation of 92%. 3. Obesity, unspecified. Currently patients BMI is 49.4. Obesity increases the risk of apnea, CPAP pressure requirements and overall health risks especially cardiovascular and diabetes. Thus patient is advised to lose weight. * Nasal auto CPAP therapy, pressure at 4-15 cm H2O. * Attempt to lose weight. * Avoid alcohol consumption near bedtime. * Avoid supine sleep until using CPAP. * The patient is again cautioned about driving until sleepiness completely resolves. * Return one month after CPAP obtained. I will assess response to therapy and compliance at that time. Counseling Topics: Weight loss health impact Prescriptions: Auto CPAP Follow up with Sleep Care in: other (for compliance visit) Visit Type: In Office Time Spent with Patient (minutes): 23 Provider Statement: I spent 100% of the Face to Face Visit with the patient with greater than 50% spent counseling the patient and coordination of care.
[2023-02-23 11:39] VITALS: BP 152/101; O2SAT 97
== END 2023-02-23 10:59 | disposition home or self-care (01) ==
LOC: SC 10:58
PROVIDERS: ATTEND Nurse Practitioner Family
DX: G47.33 Obstructive sleep apnea (adult) (pediatric) (principal); R09.02 Hypoxemia; E66.01 Morbid (severe) obesity due to excess calories; Z68.42 Body mass index [BMI] 45.0-49.9, adult
CPT/HCPCS: 99212; 99213

== ENCOUNTER 2023-11-10 15:08 | Outpatient (CLI) | payer MEDICAID ==
--- NOTE | 2023-11-10 15:52 | Sleep Patient Instructions ---
Sleep Center Visit Summary - Patient Visit Information Reason for Visit: Follow-up to [facility] for CPAP - Patient Instructions Additional Instructions: You will be completing a sleep study, either an in-lab polysomnography (PSG) or home sleep study (HST). You will follow-up in the sleep care office after the sleep study is completed to hear the results and talk about therapy, if needed. You will be called by our office staff to schedule this appointment, but you may contact us with any questions. - Clinic Information Contact: [facility] [address] [place] [address] [email or web address] T: [phone]
--- NOTE | 2023-11-10 15:57 | SLEEP CARE CONSULTATION ---
Information from patient questionnaire entered by Sherrell Lopze. I have reviewed and concur with the information entered by Sherrell Lopez. This document represents the service I personally performed and the decisions made by , Katia Barrow ARNP. History of Present Illness Service Date and Time: 11/10/2023 1508 Previous diagnosis: Severe, Obstructive Sleep Apnea-Hypopnea Syndrome AHI: 36 (02/12/23) Reason for follow up: other (FAILED COMPLIANCE NEED TO REQUALIFY) Equipment type: CPAP (had to return the CPAP due to non-compliance) Prior sleep studies: Yes Year and Where: [facility] [place] [facility] 2021 Type of Sleep Study: Polysomnography (COMPLETED 02/12/23) HPI additional information: SPEEDY OLEARY was diagnosed to have severe, AHI 36, obstructive sleep apnea- hypopnea syndrome and returned today for CPAP therapy failed compliance follow- up. She will have to do a new sleep study to requalify for CPAP therapy. The patient tells me that she normally goes to bed around 10 pm, and it takes her approximately up to 60 minutes to fall asleep. She has been told that she snores loudly and irregularly at night. She has been observed to stop breathing in her sleep. Her bed partner can still sleep in the same bed. She can recall waking up on the average of 1 times during the night. Most of the time she wakes up because of bathroom. She has occasionally awakened for her own snoring, and having to gasp for air. There is a lot of tossing and turning in her sleep. Generally she can recall having dreams. She usually wakes up at 0630- 0700 and does not feel refreshed all the time. She usually does not have a morning headache. During the day she complains of feeling sleepy and fatigued. She has never fallen asleep while driving nor has any accident due to sleepiness. She usually naps for about 2-3 hours during the day but only 1-2 times a week. If she naps, upon falling asleep during the day she admits to having vivid dreams. She denies having impaired concentration during the day. There is no somniloquy (sleep talking) or somnambulism (sleep walking). She has never experienced sleep paralysis, cataplexy, or symptoms of restless leg syndrome. Sleep Study - Results Type of Sleep Study: Polysomnography (COMPLETED 02/12/23) Prior sleep studies: Yes Year and Where: [facility] Subjective Initial Blaine Sleepiness Scale score: 13 (01/25/23) Current Blaine Sleepiness Scale score: 11 (11/10/23) Allergies and Home Medications Known drug allergies: No Drug allergies reviewed: Yes Home medication list reviewed: Yes (Spironolactone 25 mg bid; Ezetimibe 10 mg daily) Allergy and home medication list: Allergies No Known Drug Allergies Allergy (Verified 11/10/23 15:09) Review of Systems Review of systems same as previous: Yes (NO CHANGE) Physical Exam Vital signs obtained and entered by: SHERRELL Eduardo MA Blood Pressure: 134/89 (RIGHT WRIST) Cuff size: regular Heart Rate: 81 O2 Saturation: 100 Height: 5 ft 4 in Weight: 295 lb 3.2 oz Body Mass Index: 50.6 BMI Classification: Morbidly Obese Impression and Plan 1. Obstructive Sleep Apnea-Hypopnea Syndrome, severe. Patient states she had to return her CPAP because of noncompliance with using it. She says that the last pressure change she felt like she was starting to be able to use it well and feeling a difference but then she got the letter that says she had to return the machine. She will need to requalify for CPAP therapy by doing another sleep study. I recommend proceeding to polysomnography to confirm the diagnosis and to assess severity. I obtained agreement to proceed. The pathophysiology of obstructive sleep apnea-hypopnea syndrome was discussed with the patient and health risks of cardiovascular and cerebrovascular disease if not treated. 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 Patient agreed to plan. Patient's apnea severity and rationale for treatment to reduce apnea, improve sleep quality and reduce cardiovascular and cerebrovascular events was reviewed. I also reviewed the benefit of consistent device use of CPAP for hypertension, cardiac disease, diabetes, depression. 2. Obesity, unspecified. Currently patients BMI is 50.6. Obesity increases the risk of apnea, CPAP pressure requirements and overall health risks especially cardiovascular and diabetes. Thus patient is advised to lose weight. * Schedule polysomnography +- manual CPAP titration study and return in 1-2 weeks after the study to discuss result and initiate therapy. * Avoid long distance driving or driving when feeling sleepy. * Avoid alcohol, sedative and muscle relaxant around bedtime. * Attempt to lose weight. * Review instructions provided by trained office staff on how to prepare for the sleep study. * Return for follow-up after sleep study completed. Counseling Topics: Weight loss health impact Visit Type: In Office Time Spent with Patient (minutes): 16 Provider Statement: I spent 100% of the Face to Face Visit with the patient with greater than 50% spent counseling the patient and coordination of care.
[2023-11-10 16:04] VITALS: BP 134/89; O2SAT 100
== END 2023-11-10 15:09 | disposition home or self-care (01) ==
LOC: SC 15:08
PROVIDERS: ATTEND Nurse Practitioner Family
DX: G47.33 Obstructive sleep apnea (adult) (pediatric) (principal); E66.01 Morbid (severe) obesity due to excess calories; Z68.43 Body mass index [BMI] 50.0-59.9, adult
CPT/HCPCS: 99212